=== PATIENT | female | born 1970 | race African-American/Black ===

== ENCOUNTER 2022-12-19 22:42 | Outpatient (CLI) | payer BC, SELFPAY | END 2022-12-19 22:43 | disposition home or self-care (01) | LOC: AMB 12-20 11:53 | PROVIDERS: Visit Provider Emergency Medicine | DX: E11.65 Type 2 diabetes mellitus with hyperglycemia (principal); R41.82 Altered mental status, unspecified | CPT/HCPCS: A0425; A0427 ==

== ENCOUNTER 2022-12-19 23:39 | Emergency (ER) | payer BC, SELFPAY ==
[2022-12-19 23:46] VITALS: BP 142/85; PULSE 116; RESP 16; TEMP 36.6; O2SAT 96; BMI 40.7
--- NOTE | 2022-12-20 00:33 | CRLHL7_ITS ---
For Patients: As a result of the Cures Act, medical imaging exams and procedure reports are released immediately into your electronic medical record. You may view this report before your referring provider. If you have questions, please contact your health care provider. INDICATION: Altered mental status TECHNIQUE: Chest 1 view. Permanently recorded images are archived. COMPARISON: None. FINDINGS: Cardiovascular and mediastinum: Cardiomegaly. Normal thoracic aorta. Lungs and pleural spaces: Low lung volumes with bronchovascular crowding. No definite pleural effusion, consolidation, pneumothorax. Bones and soft tissues: Unremarkable for age. IMPRESSION: Low lung volumes with bronchovascular crowding. No focal consolidation. Cardiomegaly. Dictated by Tirso Cartagena MD @ 12/20/2022 1:25:03 AM (Electronically Signed)
[2022-12-20 01:09] VITALS: BP 144/87; PULSE 114; RESP 24; TEMP 36.6; O2SAT 94
[2022-12-20] MEDS: 0.9 % SODIUM CHLORIDE 500 ML 500 ML IV (01:09)
[2022-12-20 01:17] LABS: HCO3 VBG 26 mmol/L (21-28); Lactate* 1.7 mmol/L (0.5-1.9); PCO2 VBG 43 mmHG (40-50); Troponin, Point-of-Care* 0.02 ng/ml (0.01-0.04); pH VBG 7.388 (7.32-7.43)
--- NOTE | 2022-12-20 01:29 | ED.GENADULT ---
HPI - General Adult General Chief complaint: Diabetic Related Problem Stated complaint: Diabetic Time Seen by Provider: 12/20/22 00:07 Source: patient and family Mode of arrival: EMS History of Present Illness HPI narrative: 52-year-old female presents the emergency department by EMS. They were called because her son had concerns regarding her blood sugar. He initially was concerned that she has not had her blood sugar meter for the past couple of days. He reports that she returned from [place] 6 hours ago, does typically live with him but has been gone for the last week. It clear that she has not been taking her insulin properly while she has been away visiting family. She denies drug use or intoxication. Reports that even though she did not check her sugar tonight, she assumed was high, therefore took her typical amount of insulin. She took 36 units of her long-acting insulin which is her typical dose and to 24 units of her short-acting insulin which is also her typical dose. When EMS checked her blood sugar she was around 400 and is 345 here for us. Son reports that she was acting funny, drowsy and that this is not characteristic for her. She is able to answer questions, has been ambulating normally. She denies chest pain, fever, infection. She reports that she does feel sleepy. It is clear by the way that she is not a off positionally that she likely has some element of positional sleep apnea through our conversation today. Son states that he does not have any report that she was acting abnormally while away but does not have a good way to check in on that. Denies history of similar patterns of behavior. She denies any pain, neurological changes. She had actually refused to come to the hospital when EMS had arrived but they convinced her that she should. Past medical history notable for hyperlipidemia, diabetes. She is able to relay her insulin dosing and medical problems to me with what sounds to be pretty good reliability. Denies allergies. Denies drug use or alcohol intake tonight. ROS notable for the altered mental status and possible endocrine complications as described above. Otherwise, family denies times 12 systems. Related Data Previous Rx's Medication Instructions Recorded Test Strips #100 ea 12/20/22 blood-glucose meter #1 ea 12/20/22 Allergies Allergy/AdvReac Type Severity Reaction Status Date / Time No Known Drug Allergies Allergy Verified 12/19/22 23:49 [facility] Medical History Diabetes mellitus, type 2 ?E11.9 - Type 2 diabetes mellitus without complications (ICD-10) Social History Smoking Status: Never smoker How often do you have a drink containing alcohol: never AUDIT-C Alcohol total score: 0 Non-prescribed substance use: denies use Exam Const: Vital Signs, click to edit/add: Vital Signs - 24 hr 12/19/22 23:46 12/20/22 01:09 Temperature 97.8 F 97.8 F Pulse Rate [Left P ulse Oximeter] 116 H 114 H Respiratory Rate 16 24 Blood Pressure [Le ft Forearm] 142/85 H 144/87 H Pulse Oximetry 96 94 Oxygen Delivery Me thod Room Air Room Air Documenting provider has reviewed patient's vital signs: yes Other: Drowsy but arousable. When you can maintain her attention, she answers questions with good reliability. HENMT: Common normals: normocephalic Head and scalp: normocephalic Face and sinus: normal facial exam Mouth: oral and palatal mucosa normal Throat: posterior oropharynx normal Eye: Common normals: conjunctivae normal General eye: normal appearance of both eyes Conjunctiva: conjunctiva(e) normal Neck & C-Spine: Common normals: full ROM and no lymphadenopathy Chest: Common normals: inspection of chest normal Resp: Common normals: normal respiratory effort and no use of accessory muscles Other: Decreased at the bases but poor effort. No obvious crackles Cardio: Common normals: regular rate, regular rhythm, S1 normal heart sound, S2 normal heart sound and no murmurs Rate: regular rate Rhythm: regular rhythm Heart sounds: S1 normal and S2 normal GI: Common normals: Normal to inspection, nondistended, normoactive bowel sounds present, soft to palpation, non-tender, no hepatosplenomegaly and no masses Palpation: soft and no hepatosplenomegaly Extremity: Common normals: normal capillary refill and no pedal edema Neuro: Other: drowsy but arousable. Obviously has some element of positional sleep apnea. Pupils are equal and round, reactive, normal gaze and visual tracking. Symmetric arm and leg movements, no slurring of speech. Psych: Insight: limited Judgement: limited Skin: Common normals: no rashes or lesions noted General skin exam: no rashes or lesions noted Course Course Hospital Course: Differential diagnosis including diabetic ketoacidosis, hypoglycemia, infection, electrolyte abnormality, dehydration, Pickwickian syndrome, cardiac process, neurological event like stroke or toxin ingestion. Initial blood sugars are reassuring. I recommend we focus more on and etiology of the altered mental status. Recommend chest x-ray, basic labs, 1 L of IV fluid. Head CT. Reevaluation(s) Time of Reevaluation #1: 03:12 Reevaluation #1: Blood sugar recheck 174, eating crackers and peanut butter. She is still drowsy but will arouse to voice and answer questions. Lengthy discussion regarding need for sleep study, proper blood sugar management and need for glucose meter. I will send a prescription for a blood glucose meter and test strips just in case there are any barriers to getting a new continuous glucose monitor kit. Discussed how her next dose of her long-acting insulin should be taken Sunday evening and that she should only take more for short-acting insulin with her next meal. At this point, it is been over 4 hours since she took her Humalog, it is well past peak and actually out of her system now. She will not continue to have a significant risk for hypoglycemia. Her short-acting insulin should continue to lower her blood sugar about another 50 points over night, coming down to the ideal range. She can be discharged home with her family for planned outpatient follow-up, follow-up sleep study and continued surveillance. Alarm symptoms reviewed that would warrant repeat ED presentation. Patient and significant other verbalized understanding. Vital Signs Vital signs: Initial Vital Signs Temperature 97.8 F 12/19/22 23:46 Temperature Source Temporal Artery Scan 12/19/22 23:46 Pulse Rate 116 H 12/19/22 23:46 Respiratory Rate 16 12/19/22 23:46 Blood Pressure 142/85 H 12/19/22 23:46 Blood Pressure Mean 104 12/19/22 23:46 Blood Pressure Position Sitting 12/19/22 23:46 Pulse Oximetry 96 12/19/22 23:46 Oxygen Delivery Method Room Air 12/19/22 23:46 Vital Signs Temperature 97.8 F 12/19/22 23:46 Pulse Rate 116 H 12/19/22 23:46 Respiratory Rate 16 12/19/22 23:46 Blood Pressure 142/85 H 12/19/22 23:46 Pulse Oximetry 96 12/19/22 23:46 Oxygen Delivery Method Room Air 12/19/22 23:46 Temperature 97.8 F 12/20/22 01:09 Pulse Rate 114 H 12/20/22 01:09 Respiratory Rate 24 12/20/22 01:09 Blood Pressure 144/87 H 12/20/22 01:09 Pulse Oximetry 94 12/20/22 01:09 Oxygen Delivery Method Room Air 12/20/22 01:09 Medical Decision Making Lab Data Lab results reviewed: Yes I reviewed the patient's lab results Lab results narrative: mild leukocytosis of undetermined etiology. No acidosis, normal CRP. Urinalysis suggestive of chronic long-term issues but no acute infection. No significant dehydration. Labs: Lab Results 12/20/22 12/20/22 12/20/22 Range/Units 01:00 01:06 01:10 WBC 11.18 H (4.50-11.00) K/uL RBC 4.76 (4.00-5.20) m/uL Hgb 13.4 (12.0-16.0) gm/dL Hct 42.0 (33.0-51.0) % MCV 88 (80-100) fL MCH 28 (26-34) pg MCHC 32 (32-36) gm/dL RDW Coeff of Ximena 15.1 (11.5-15.5) % Plt Count 375 (140-440) K/uL Neut % (Auto) 51.2 (42.0-72.0) % Lymph % (Auto) 37.3 (20-44) % [place] % (Auto) 8.3 (0.0-11.0) % Eos % (Auto) 2.1 (0.0-7.0) % Baso % (Auto) 0.7 (0.0-3.0) % Neut # (Auto) 5.70 (1.7-7.0) K/uL Lymph # (Auto) 4.20 H (0.90-2.90) K/uL [place] # (Auto) 0.90 (0.00-0.90) K/UL Eos # (Auto) 0.20 (0.00-0.50) K/uL Baso # (Auto) 0.10 (0.00-0.30) K/uL Abs Immat Gran (auto) 0.00 (0.00-0.30) K/uL Imm/Tot Granulo (auto) 0.4 % VBG pH 7.388 (7.32-7.43) VBG pCO2 43 (40-50) mmHG VBG pO2 57.0 H (25-47) mmHG VBG HCO3 26 (21-28) mmol/L Sodium 139 (135-149) mmol/L Potassium 3.5 L (3.6-5.1) mmol/L Chloride 106 (96-114) mmol/L Carbon Dioxide 25 (20-32) mmol/L Anion Gap 8 (7-15) mEq/L BUN 31 H (7-30) mg/dL Creatinine 1.1 (0.5-1.5) mg/dL Estimated Creat Clear 50.61 Estimated GFR 61 ml/min Glucose 224 H (60-115) mg/dL Lactate 1.7 (0.5-1.9) mmol/L Calcium 8.9 (8.4-10.6) mg/dL Troponin I 0.02 (0.01-0.04) ng/mL C-Reactive Protein 0.6 (0.5-1.0) mg/dL Urine Color (Yellow) Urine Appearance (Clear) Urine pH (5.0-8.5) Ur Specific [place] (1.000-1.030) Urine Protein (Negative) Urine Glucose (UA) (Negative) Urine Ketones (Negative) Urine Blood (Negative) Urine Nitrite (Negative) Urine Bilirubin (Negative) Urine Urobilinogen (0.2-1.0) Ur Leukocyte Esterase (Negative) Urine RBC (0-2) Urine WBC (0-5) Ur Squamous Epith Cells (None-Few) Urine Bacteria (None) Ethyl Alcohol < 0.01 L (0.01-0.03) % SARS-CoV-2 (PCR) Negative SARS-CoV-2 (Negative) Influenza Type A (PCR) Negative PCR FLU A (Negative) Influenza Type B (PCR) Negative PCR FLU B (Negative) RSV (PCR) Negative PCR RSV (Negative) Lab Acknowledgement POC Troponin I 0.02 (0.01-0.04) ng/ml 12/20/22 12/20/22 Range/Units 01:15 01:25 WBC (4.50-11.00) K/uL RBC (4.00-5.20) m/uL Hgb (12.0-16.0) gm/dL Hct (33.0-51.0) % MCV (80-100) fL MCH (26-34) pg MCHC (32-36) gm/dL RDW Coeff of Ximena (11.5-15.5) % Plt Count (140-440) K/uL Neut % (Auto) (42.0-72.0) % Lymph % (Auto) (20-44) % [place] % (Auto) (0.0-11.0) % Eos % (Auto) (0.0-7.0) % Baso % (Auto) (0.0-3.0) % Neut # (Auto) (1.7-7.0) K/uL Lymph # (Auto) (0.90-2.90) K/uL [place] # (Auto) (0.00-0.90) K/UL Eos # (Auto) (0.00-0.50) K/uL Baso # (Auto) (0.00-0.30) K/uL Abs Immat Gran (auto) (0.00-0.30) K/uL Imm/Tot Granulo (auto) % VBG pH (7.32-7.43) VBG pCO2 (40-50) mmHG VBG pO2 (25-47) mmHG VBG HCO3 (21-28) mmol/L Sodium (135-149) mmol/L Potassium (3.6-5.1) mmol/L Chloride (96-114) mmol/L Carbon Dioxide (20-32) mmol/L Anion Gap (7-15) mEq/L BUN (7-30) mg/dL Creatinine (0.5-1.5) mg/dL Estimated Creat Clear Estimated GFR ml/min Glucose (60-115) mg/dL Lactate (0.5-1.9) mmol/L Calcium (8.4-10.6) mg/dL Troponin I (0.01-0.04) ng/mL C-Reactive Protein (0.5-1.0) mg/dL Urine Color Yellow (Yellow) Urine Appearance Clear (Clear) Urine pH 6.0 (5.0-8.5) Ur Specific [place] 1.025 (1.000-1.030) Urine Protein 3+ A (Negative) Urine Glucose (UA) 2+ A (Negative) Urine Ketones 1+ A (Negative) Urine Blood 1+ A (Negative) Urine Nitrite Negative (Negative) Urine Bilirubin Negative (Negative) Urine Urobilinogen 0.2 (0.2-1.0) Ur Leukocyte Esterase Negative (Negative) Urine RBC 0-2 (0-2) Urine WBC 0-2 (0-5) Ur Squamous Epith Cells Few (None-Few) Urine Bacteria None (None) Ethyl Alcohol (0.01-0.03) % SARS-CoV-2 (PCR) (Negative) Influenza Type A (PCR) (Negative) Influenza Type B (PCR) (Negative) RSV (PCR) (Negative) Lab Acknowledgement Test Added POC Troponin I (0.01-0.04) ng/ml Imaging Data Chest x-ray: Attestation: I have reviewed the pertinent imaging results. My impression: Poor inspiratory effort, cardiomegaly but no obvious infiltrate or pleural effusion Radiologist's impression: IMPRESSION: Low lung volumes with bronchovascular crowding. No focal consolidation. CT scan - head: Attestation: I have reviewed the pertinent imaging results. My impression: Normal head CT Radiologist's impression: IMPRESSION: 1. No CT correlate for the patient`s symptoms seen. Discharge Plan Discharge Clinical Impression: Elevated blood sugar, Altered mental status, Pickwickian syndrome Patient Disposition: Home w/ Parent or Adult Condition: Stable Instructions: Sleep Apnea (DC) Additional Instructions: As we discussed, blood work is reassuring. CT scan of the head also does not show any signs of tumors, stroke or other abnormality. This is good news. Her oxygen levels do drop in certain sleep positions which is suggestive of sleep apnea. Please make a follow-up appointment with her primary care doctor next week to further discuss testing with a sleep study and make sure that the diabetes is getting back under control. It is important that you have a way to monitor your blood sugars. I will send a blood glucose meter to the pharmacy. They will not likely cover an additional continuous glucose implanted meter except by your regular primary care doctor but sometimes there are no remaining refills or it requires a new insurance approval. It is important that you have a way to check her blood sugar in the meantime even if it is through fingerstick. With your elevated blood sugar, it you actually did exactly the right thing in terms of taking your insulin. I would just prefer in the future that you have a way to check your blood sugar instead of making assumption as to what is needed. If symptoms continue to worsen, you are welcome back in the emergency room to look more closely at a problem with the brain. Remember not to take your long-acting insulin again until Sunday evening. Your next dose of short-acting insulin will be with your next meal. Your blood sugar is 175 at the time of going home and should be around 100 in the morning which is ideal. Make sure you eat breakfast in the morning. Activity Level: No Restrictions Prescriptions: New (DME) blood-glucose meter Kit See Rx Instructions .Route Qty: 1 0RF Rx Instructions: 4x daily testing (DME) Test Strips Misc See Rx Instructions .Route Qty: 100 1RF Rx Instructions: As directed Follow Up/Referrals: Provider,Not a Local [Primary Care Provider] - Stand Alone Forms: [employer] Info Instructions
[2022-12-20 01:32] LABS: Basophils Percent Auto 0.7 % (0.0-3.0); Eosinophils Percent Auto 2.1 % (0.0-7.0); Hemoglobin* 13.4 gm/dL (12.0-16.0); Immature Granulocytes Pct Auto 0.4 %; Lymphocytes Percent Auto 37.3 % (20-44); Mean Corpuscular HGB Conc 32 gm/dL (32-36); Mean Corpuscular Hemoglobin 28 pg (26-34); Mean Corpuscular Volume 88 fL (80-100); Monocytes Percent Auto 8.3 % (0.0-11.0); Neutrophils Percent Auto 51.2 % (42.0-72.0); Platelet Count* 375 K/uL (140-440); RDW Coefficient of Variation % 15.1 % (11.5-15.5); Red Blood Count 4.76 m/uL (4.00-5.20); White Blood Count* 11.18 K/uL (4.50-11.00)
[2022-12-20 01:33] LABS: Appearance Urine Clear (Clear); Bilirubin Urine Negative (Negative); Blood Urine 1+ (Negative); Color Urine Yellow (Yellow); Glucose Urine 2+ (Negative); Ketones Urine 1+ (Negative); Leukocyte Esterase Urine Negative (Negative); Nitrite Urine Negative (Negative); Protein Urine 3+ (Negative); Specific Gravity Urine 1.025 (1.000-1.030); Urobilinogen Urine 0.2 (0.2-1.0)
[2022-12-20 01:33] LABS: Chloride* 106 mmol/L (96-114); Sodium* 139 mmol/L (135-149)
[2022-12-20 01:34] LABS: Potassium* 3.5 mmol/L (3.6-5.1)
[2022-12-20 01:36] LABS: Creatinine* 1.1 mg/dL (0.5-1.5); Est. Creatinine Clearance* 50.61; Estimated Glomerular Filt Rate 61 ml/min
[2022-12-20 01:36] LABS: Slide Review Reflex No
[2022-12-20 01:37] LABS: Anion Gap 8 mEq/L (7-15); Blood Urea Nitrogen* 31 mg/dL (7-30); Calcium* 8.9 mg/dL (8.4-10.6); Carbon Dioxide* 25 mmol/L (20-32); Glucose* 224 mg/dL (60-115)
--- NOTE | 2022-12-20 01:37 | CRLHL7_ITS ---
For Patients: As a result of the Century Cures Act, medical imaging exams and procedure reports are released immediately into your electronic medical record. You may view this report before your referring provider. If you have questions, please contact your health care provider. INDICATION: Transient alteration of awareness TECHNIQUE: CT Head without i.v. contrast. Coronal and sagittal reformats were obtained. COMPARISON: None FINDINGS: CSF space: The ventricles are normal for age. Brain: No evidence of mass, acute infarction or hemorrhage is seen. No mass-effect or midline shift is seen. The brain parenchyma is otherwise normal in appearance with preservation of the graf-white matter junction. Calvarium: The visualized paranasal sinuses are well aerated. The mastoid air cells are clear. The visualized orbits are grossly unremarkable. The calvarium is unremarkable in appearance with no fractures identified. IMPRESSION: 1. No evidence of acute infarction, intracranial hemorrhage, or mass-effect seen. Please note that all CT scans at this facility use dose modulation, iterative reconstruction, and/or weight-based dosing when appropriate to reduce radiation dose to as low as reasonably achievable. Dictated by: Harsh Villaseñor MD @ 12/20/2022 02:22:18 (Electronically Signed)
[2022-12-20 01:39] LABS: C Reactive Protein* 0.6 mg/dL (0.5-1.0)
[2022-12-20 01:40] LABS: RBC Urine 0-2 (0-2); Squamous Epithelial Cell Urine Few (None-Few); WBC Urine 0-2 (0-5)
[2022-12-20 01:42] LABS: Ethanol* < 0.01 % (0.01-0.03)
[2022-12-20 01:47] LABS: PCR FLU A Negative PCR FLU A (Negative); PCR FLU B Negative PCR FLU B (Negative); PCR RSV Negative PCR RSV (Negative); SARS PCR* Negative SARS-CoV-2 (Negative)
[2022-12-20 01:49] LABS: Troponin I* 0.02 ng/mL (0.01-0.04)
--- NOTE | 2022-12-20 03:00 | ED.NURSE ---
pt ate saltine crackers x4 with peanut butter on them, and water
[2022-12-20 03:30] VITALS: BP 136/79; PULSE 98; RESP 24; TEMP 36.9; O2SAT 96
== END 2022-12-20 04:56 | disposition home or self-care (01) ==
PROVIDERS: Emergency Provider Family Medicine
DX: E11.65 Type 2 diabetes mellitus with hyperglycemia (principal); R41.82 Altered mental status, unspecified; E66.2 Morbid (severe) obesity with alveolar hypoventilation; Z79.4 Long term (current) use of insulin
CPT/HCPCS: 36415; 70450; 71045; 80048; 81003; 81015; 82077; 82803; 82962; 83605; 84484; 85025; 86140; 87631; 99284; 99285; J7120

== ENCOUNTER 2023-09-20 01:20 | Outpatient (CLI) | payer BC, SELFPAY | END 2023-09-20 01:21 | disposition home or self-care (01) | LOC: AMB 09-25 23:10 | PROVIDERS: PCP Family Medicine; Visit Provider Internal Medicine | DX: E16.2 Hypoglycemia, unspecified (principal) | CPT/HCPCS: A0998 ==

== ENCOUNTER 2023-09-20 18:18 | Outpatient (CLI) | payer BC, SELFPAY | END 2023-09-20 18:19 | disposition home or self-care (01) | LOC: AMB 09-23 15:00 | PROVIDERS: PCP Family Medicine; Visit Provider Family Medicine | DX: R53.1 Weakness (principal) | CPT/HCPCS: A0425; A0429 ==

== ENCOUNTER 2023-09-20 18:50 | Emergency (ER) | payer BC, SELFPAY ==
[2023-09-20 18:55] VITALS: BP 136/108; PULSE 110; RESP 24; TEMP 36.2; O2SAT 95; BMI 47.6
--- NOTE | 2023-09-20 19:12 | CRLHL7_ITS ---
For Patients: As a result of the Cures Act, medical imaging exams and procedure reports are released immediately into your electronic medical record. You may view this report before your referring provider. If you have questions, please contact your health care provider. Indication: Injury. Technique: Left knee 3 views. Comparison: None. Findings: Bones: Alignment is normal. No fractures or bone lesions. Small superior and inferior patellar enthesophytes. Joint spaces: Mild tricompartment degenerative changes. No knee joint effusion. Soft tissues: Unremarkable. Impression: No evidence of an acute bony abnormality. Dictated by Tirso Cartagena MD @ 09/20/2023 8:13:41 PM (Electronically Signed)
--- NOTE | 2023-09-20 19:13 | ED_ITS ---
HPI - General Adult General Chief complaint: Weakness Stated complaint: Fall Time Seen by Provider: 09/20/23 18:57 History of Present Illness HPI narrative: This 53-year-old female comes in reporting weakness in her left knee. She states that she fell earlier today and 2 days ago she fell twice under the same circumstances when getting up from a sitting position. She states that she does not have pain and did not injure herself but has weakness in her left knee insufficient to change from sitting to standing at certain times. She has been able to get up and ambulate since her fall today. She does not report generalized weakness. Her she does not report any injury event. Related Data Home Medications ?Medication ?Instructions ?Recorded ?Confirmed atorvastatin 40 mg tablet 40 mg PO DAILY 09/20/23 09/20/23 brimonidine 0.2 % eye drops drp ophthalmic (eye) 09/20/23 insulin glargine 100 unit/mL (3 unit subcut 09/20/23 mL) subcutaneous pen (Lantus Solostar U-100 Insulin) insulin lispro 100 unit/mL subcut 09/20/23 subcutaneous pen (Humalog KwikPen (U-100) Insulin) Previous Rx's ?Medication ?Instructions ?Recorded Test Strips #100 ea 12/20/22 blood-glucose meter #1 ea 12/20/22 Allergies Allergy/AdvReac Type Severity Reaction Status Date / Time No Known Drug Allergies Allergy Verified 12/19/22 23:49 Review of Systems Status of ROS: Reports: 10 or more systems reviewed and unremarkable except as noted in History and below Narrative: Constitutional: No fevers, no weight gain or loss. Eyes: No discharge. No vision changes. HENT: No congestion, no sore throat, no ear pain. Cardiovascular: No chest pain, no palpitations. Respiratory: No shortness of breath, no wheezes, no cough. Gastrointestinal: No abdominal pain, no vomiting, no diarrhea. Genitourinary: No dysuria, no hematuria. Musculoskeletal: Normal range of motion. Diffuse discomfort in her right knee when moving to a standing position. Skin: No rashes, no pruritis. Neurological: No dizziness, weakness, sensory change, speech change. Endo/Heme/Allergies: No bruising or bleeding. No polydipsia. Pysch: no suicidality, no anxiety, no insomnia. All other systems reviewed and are negative. [facility] Medical History Diabetes mellitus, type 2 ?E11.9 - Type 2 diabetes mellitus without complications (ICD-10) Social History Smoking Status: Never smoker How often do you have a drink containing alcohol: never AUDIT-C Alcohol total score: 0 Non-prescribed substance use: denies use Exam Narrative: Exam Narrative: Constitutional: Well-developed, well-nourished, no acute distress. HEENT: Normocephalic, atraumatic. Neck: Normal range of motion. Nontender. Supple. Heart: Intact distal pulses. Lungs: No chest discomfort. No wheezes, rhonchi, or rales. Abdomen: Nontender. Back: Normal range of motion. Extremities: No sign of external injury. She is able to raise her left leg from the bed. Skin: Intact. No rash. Warm. No erythema or pallor. Neurologic: No altered sensation. No weakness. Alert and oriented. Psychiatric: No suicidality. No anxiety or depression. No insomnia. Nursing notes and vitals signs are reviewed. Const: Vital Signs, click to edit/add: Vital Signs - 24 hr 09/20/23 18:55 Temperature 97.1 F L Pulse Rate [Pulse Oximeter] 110 H Respiratory Rate 24 Blood Pressure [Ri ght Upper Arm] 136/108 H Pulse Oximetry 95 Oxygen Delivery Me thod Room Air Course Vital Signs Vital signs: Initial Vital Signs Temperature 97.1 F L 09/20/23 18:55 Temperature Source Temporal Artery Scan 09/20/23 18:55 Pulse Rate 110 H 09/20/23 18:55 Pulse Rhythm Regular 09/20/23 18:55 Respiratory Rate 24 09/20/23 18:55 Blood Pressure 136/108 H 09/20/23 18:55 Blood Pressure Mean 117 H 09/20/23 18:55 Blood Pressure Position Supine 09/20/23 18:55 Pulse Oximetry 95 09/20/23 18:55 Oxygen Delivery Method Room Air 09/20/23 18:55 Vital Signs Temperature 97.1 F L 09/20/23 18:55 Pulse Rate 110 H 09/20/23 18:55 Respiratory Rate 24 09/20/23 18:55 Blood Pressure 136/108 H 09/20/23 18:55 Pulse Oximetry 95 09/20/23 18:55 Oxygen Delivery Method Room Air 09/20/23 18:55 Temperature 97.1 F L 09/20/23 18:55 Pulse Rate 110 H 09/20/23 18:55 Respiratory Rate 24 09/20/23 18:55 Blood Pressure 136/108 H 09/20/23 18:55 Pulse Oximetry 95 09/20/23 18:55 Oxygen Delivery Method Room Air 09/20/23 18:55 Medical Decision Making MDM Narrative Medical decision making narrative: This patient comes in reporting weakness in her left knee. She has some mild pain when using it to get up from a sitting position. She has fallen a few times when trying to get up. Her significant other with her states that she needs to be more active and is deconditioned. She is morbidly obese. An x-ray of her left knee is obtained and by my review shows no acute findings. This patient does not need any knee immobilization, rather she needs to be more mobile and use these muscles. She did receive crutches to assist with ambulating. She will use [id number] medicines also as needed and directed. Discharge Plan Discharge Clinical Impression: Acute knee pain Patient Disposition: Home w/ Parent or Adult Condition: Stable Additional Instructions: Increase activity as tolerated. Use crutches for assistance in ambulating as needed. Use [id number] medicines as needed and directed also. Prescriptions: No Action (DME) blood-glucose meter Kit See Rx Instructions .Route Qty: 1 0RF Rx Instructions: 4x daily testing (DME) Test Strips Misc See Rx Instructions .Route Qty: 100 1RF Rx Instructions: As directed atorvastatin 40 mg tablet 40 mg PO DAILY brimonidine 0.2 % drops ophthalmic (eye) insulin lispro [Humalog KwikPen Insulin] 100 unit/mL insulin pen subcut insulin glargine [Lantus Solostar U-100 Insulin] 100 unit/mL (3 mL) insulin pen subcut Follow Up/Referrals: Provider,Not a Local [Referring] - Stand Alone Forms: [facility] Info Instructions
== END 2023-09-20 20:39 | disposition home or self-care (01) ==
PROVIDERS: Emergency Provider Emergency Medicine Emergency Medical Services; PCP Family Medicine
DX: M25.562 Pain in left knee (principal)
CPT/HCPCS: 73562; 99283; 99284

== ENCOUNTER 2023-10-15 08:03 | Outpatient (CLI) | payer BC, SELFPAY | END 2023-10-15 08:04 | disposition home or self-care (01) | LOC: AMB 10-17 01:40 | PROVIDERS: PCP Family Medicine; Visit Provider Emergency Medicine | DX: R55 Syncope and collapse (principal); S09.90XA Unspecified injury of head, initial encounter; W18.30XA Fall on same level, unspecified, initial encounter; Y92.009 Unspecified place in unspecified non-institutional (private) residence as the place of occurrence of the external cause | CPT/HCPCS: A0998 ==

== ENCOUNTER 2023-10-22 14:13 | Outpatient (CLI) | payer BC, SELFPAY | END 2023-10-22 14:14 | disposition home or self-care (01) | LOC: AMB 10-27 12:48 | PROVIDERS: PCP Family Medicine; Visit Provider Family Medicine | DX: R41.82 Altered mental status, unspecified (principal) | CPT/HCPCS: A0425; A0429 ==

== ENCOUNTER 2023-10-22 15:00 | Inpatient (IN) | payer BC, SELFPAY ==
[2023-10-22] VITALS (11 sets, daily range): BP systolic 159–183; BP diastolic 86–106; PULSE 98–106; RESP 26–32; TEMP 36.4–36.6; O2SAT 92–100; BMI 41.2; BMI 60.0
--- NOTE | 2023-10-22 15:11 | ED.AMS ---
HPI - Altered Mental Status General Time Seen by Provider: 15:11 Date Seen: 10/22/23 Chief Complaint: Altered Mental Status Stated Complaint: Confusion, falls Time Seen by Provider: 10/22/23 15:11 Source: patient, family and RN notes reviewed Mode of arrival: ambulatory Limitations: altered mental status History of Present Illness HPI narrative: Cindy is a very pleasant 53-year-old female with a history of morbid obesity, hypertension who comes to the emergency room for evaluation regarding increasing confusion. Her son accompanies her as she arrives via EMS. It appears that over the past month she has been experiencing increased confusion. Sometimes making odd statements in the morning. She has hit her head a few times in the past month and most recently as a week ago. She denies any headache or neck pain. She has not had any fevers or chills. She notes no chest pain or shortness of breath. She does agree that she has been wheezing a bit more. Her son states that she will fall asleep and on the toilet and that is where most of the falls have occurred when she is sitting and falls asleep. She denies a history of apnea and she does not wear a CPAP at night. Related Data Home Medications ?Medication ?Instructions ?Recorded ?Confirmed atorvastatin 40 mg tablet 40 mg PO DAILY 09/20/23 10/22/23 brimonidine 0.2 % eye drops 1 drp ophthalmic (eye) DAILY 09/20/23 10/22/23 insulin glargine 100 unit/mL (3 35 unit subcut HS 09/20/23 10/22/23 mL) subcutaneous pen (Lantus Solostar U-100 Insulin) insulin lispro 100 unit/mL 1 sliding scale dose subcut 09/20/23 subcutaneous pen (Humalog KwikPen (U-100) Insulin) metformin 1,000 mg tablet 1,000 mg PO BID 10/22/23 10/22/23 Previous Rx's ?Medication ?Instructions ?Recorded Test Strips #100 ea 12/20/22 blood-glucose meter #1 ea 12/20/22 Allergies Allergy/AdvReac Type Severity Reaction Status Date / Time No Known Drug Allergies Allergy Verified 12/19/22 23:49 Review of Systems Status of ROS: Reports: 10 or more systems reviewed and unremarkable except as noted in History and below [facility] Medical History Diabetes mellitus, type 2 ?E11.9 - Type 2 diabetes mellitus without complications (ICD-10) Social History Smoking Status: Never smoker How often do you have a drink containing alcohol: never How often do you have six or more drinks on one occasion: Never AUDIT-C Alcohol total score: 0 Non-prescribed substance use: denies use service: No Exam Narrative: Exam Narrative: Patient is awake. The speech is somewhat slurred and she seems excessively sleepy. She is redirectable. Head is atraumatic normocephalic. Neck is supple. No midline cervical tenderness. EOM is full. Oral cavity with moist mucous membranes. I do note audible wheezing. Heart with a tachycardic rate normal rhythm. Lungs with decreased breath sounds in the bases wheezing in the upper 8 apices abdomen is obese soft nontender. Lower extremities with 2+ edema taut skin. I do not see any drainage or unusual erythema. She is moving her lower extremities. Const: Vital Signs, click to edit/add: Vital Signs - 24 hr 10/22/23 15:01 10/22/23 17:15 10/22/23 17:17 Temperature 97.8 F Pulse Rate 99 98 Pulse Rate [Pulse Oximeter] 106 H Respiratory Rate 26 H Blood Pressure 176/103 H Blood Pressure [Ri ght Forearm] 165/88 H Pulse Oximetry 100 97 92 Oxygen Delivery Me thod Room Air 10/22/23 17:22 10/22/23 17:23 10/22/23 17:30 Temperature Pulse Rate 99 99 Pulse Rate [Pulse Oximeter] Respiratory Rate Blood Pressure 183/106 H Blood Pressure [Ri ght Forearm] Pulse Oximetry 96 98 Oxygen Delivery Me thod 10/22/23 17:42 10/22/23 18:02 Temperature Pulse Rate Pulse Rate [Pulse Oximeter] Respiratory Rate Blood Pressure 160/90 H 174/91 H Blood Pressure [Ri ght Forearm] Pulse Oximetry Oxygen Delivery Me thod Documenting provider has reviewed patient's vital signs: yes Course Course ED Course: Differential diagnosis includes but not limited to sepsis, closed head injury, congestive heart failure, acute coronary event, urinary tract infection, Pickwickian syndrome, asthma, pneumonia. Will place IV and draw labs to include CBC, comprehensive panel, CRP, lactate. Will check EKG, director writing, chest x-ray, head CT, cervical spine CT. Will also check ETOH and urinalysis and VBG Reevaluation(s) Reevaluation #1: Point of care troponin comes back elevated at 0.20. This is point of care troponin and given lack of chest pain will will have lab do a backup. Addendum: Lab backup is within normal limits. At this time do not have reason for patient's altered mentation. Suggestion of some CO2 retention perhaps Pickwickian response to morbid obesity. CK is elevated at 200. Will initiate some fluids at this time. White count elevated at 12.95. Urinalysis pending. Alcohol level is negative. Nursing staff notes trying to assist patient from bed and patient is very weak. She will likely need admission with OT consult. Vital Signs Vital signs: Initial Vital Signs Temperature 97.8 F 10/22/23 15:01 Temperature Source Temporal Artery Scan 10/22/23 15:01 Pulse Rate 106 H 10/22/23 15:01 Respiratory Rate 26 H 10/22/23 15:01 Blood Pressure 165/88 H 10/22/23 15:01 Blood Pressure Mean 113 H 10/22/23 15:01 Blood Pressure Position Supine 10/22/23 15:01 Pulse Oximetry 100 10/22/23 15:01 Oxygen Delivery Method Room Air 10/22/23 15:01 Vital Signs Temperature 97.8 F 10/22/23 15:01 Pulse Rate 106 H 10/22/23 15:01 Respiratory Rate 26 H 10/22/23 15:01 Blood Pressure 165/88 H 10/22/23 15:01 Pulse Oximetry 100 10/22/23 15:01 Oxygen Delivery Method Room Air 10/22/23 15:01 Temperature 97.8 F 10/22/23 15:01 Pulse Rate 99 10/22/23 17:30 Respiratory Rate 26 H 10/22/23 15:01 Blood Pressure 174/91 H 10/22/23 18:02 Pulse Oximetry 98 10/22/23 17:30 Oxygen Delivery Method Room Air 10/22/23 15:01 MDM - Altered Mental Status MDM Narrative Medical decision making narrative: 1. Altered mentation-at this time CTs are reassuring. Blood work without evidence of concerns for infection. There is some evidence of CO2 retention. With oximetry showing patient to be 98% on room air. 2. Frequent falls-patient appears to be actually falling and hitting her head from a sitting position. For instance her son tells me that she falls asleep while on the toilet. No fever at this time. Currently awaiting urinalysis. 3. Weakness-patient appears to be globally weak and deconditioned. CK elevated at 200 with normal creatinine. Fluids have been initiated. Significantly elevated BMI likely contributing. Will admit for OT consult possible home health visits. 4. Type 2 diabetes with blood sugar of 66. 5. Disposition-admit to the floor under the care of Dr. Davis. Currently pending urinalysis, chest x-ray final report. Medical Records Attestation: I reviewed the patient's medical records. Lab Data Attestation: I reviewed the patient's lab results. Labs: Lab Results 10/22/23 10/22/23 10/22/23 Range/Units 15:27 16:30 16:30 WBC 12.95 H (4.50-11.00) K/uL RBC 4.81 (4.00-5.20) m/uL Hgb 13.7 (12.0-16.0) gm/dL Hct 43.4 (33.0-51.0) % MCV 90 (80-100) fL MCH 29 (26-34) pg MCHC 32 (32-36) gm/dL RDW Coeff of Ximena 13.8 (11.5-15.5) % Plt Count 378 (140-440) K/uL Neut % (Auto) 43.9 (42.0-72.0) % Lymph % (Auto) 42.2 (20-44) % Irwin % (Auto) 10.7 (0.0-11.0) % Eos % (Auto) 2.5 (0.0-7.0) % Baso % (Auto) 0.6 (0.0-3.0) % Neut # (Auto) 5.70 (1.7-7.0) K/uL Lymph # (Auto) 5.50 H (0.90-2.90) K/uL Irwin # (Auto) 1.40 H (0.00-0.90) K/UL Eos # (Auto) 0.30 (0.00-0.50) K/uL Baso # (Auto) 0.10 (0.00-0.30) K/uL Abs Immat Gran (auto) 0.00 (0.00-0.30) K/uL Imm/Tot Granulo (auto) 0.1 % Diff Slide Review Acceptable Review (Acceptable) VBG pH 7.379 (7.32-7.43) VBG pCO2 51 H (40-50) mmHG VBG pO2 33.7 (25-47) mmHG VBG HCO3 30 H (21-28) mmol/L Sodium 139 (135-149) mmol/L Potassium 3.3 L (3.6-5.1) mmol/L Chloride 104 (96-114) mmol/L Carbon Dioxide 30 (20-32) mmol/L Anion Gap 5 L (7-15) mEq/L BUN 17 (7-30) mg/dL Creatinine 1.5 (0.5-1.5) mg/dL Estimated Creat Clear 35.09 Estimated GFR 42 ml/min Glucose 66 (60-115) mg/dL Lactate 1.7 (0.5-1.9) mmol/L Calcium 9.0 (8.4-10.6) mg/dL Total Bilirubin 0.6 (0.1-1.5) mg/dL AST 23 (12-35) U/L ALT 15 (4-35) U/L Alkaline Phosphatase 82 (40-150) U/L Total Creatine Kinase 200 H (41-117) U/L Troponin I < 0.01 L (0.01-0.04) ng/mL C-Reactive Protein 1.0 Cancelled (0.5-1.0) mg/dL NT-Pro-B Natriuret Pep 77 pg/mL Total Protein 6.9 (6.0-8.3) g/dL Albumin 3.6 (3.3-5.0) g/dL Urine Color (Yellow) Urine Appearance (Clear) Urine pH (5.0-8.5) Ur Specific [place] (1.000-1.030) Urine Protein (Negative) Urine Glucose (UA) (Negative) Urine Ketones (Negative) Urine Blood (Negative) Urine Nitrite (Negative) Urine Bilirubin (Negative) Urine Urobilinogen (0.2-1.0) Ur Leukocyte Esterase (Negative) Urine RBC (0-2) Urine WBC (0-5) Ur Squamous Epith Cells (None-Few) Urine Bacteria (None) Fine Granular Casts (None) Urine Opiates Screen (Negative) Ur Oxycodone Screen (Negative) Urine Methadone Screen (Negative) Ur Barbiturates Screen (Negative) U Tricyclic Antidepress (Negative) Ur Phencyclidine Scrn (Negative) Ur Amphetamines Screen (Negative) U Methamphetamines Scrn (Negative) U Benzodiazepines Scrn (Negative) Urine Cocaine Screen (Negative) U Marijuana (THC) Screen (Negative) Ur Drug Screen Comment Ethyl Alcohol < 0.01 L (0.01-0.03) % Lab Acknowledgement POC Troponin I 0.20 H (0.01-0.04) ng/ml 10/22/23 10/22/23 10/22/23 Range/Units 16:30 16:31 18:08 WBC (4.50-11.00) K/uL RBC (4.00-5.20) m/uL Hgb (12.0-16.0) gm/dL Hct (33.0-51.0) % MCV (80-100) fL MCH (26-34) pg MCHC (32-36) gm/dL RDW Coeff of Ximena (11.5-15.5) % Plt Count (140-440) K/uL Neut % (Auto) (42.0-72.0) % Lymph % (Auto) (20-44) % Irwin % (Auto) (0.0-11.0) % Eos % (Auto) (0.0-7.0) % Baso % (Auto) (0.0-3.0) % Neut # (Auto) (1.7-7.0) K/uL Lymph # (Auto) (0.90-2.90) K/uL [place] # (Auto) (0.00-0.90) K/UL Eos # (Auto) (0.00-0.50) K/uL Baso # (Auto) (0.00-0.30) K/uL Abs Immat Gran (auto) (0.00-0.30) K/uL Imm/Tot Granulo (auto) % Diff Slide Review (Acceptable) VBG pH (7.32-7.43) VBG pCO2 (40-50) mmHG VBG pO2 (25-47) mmHG VBG HCO3 (21-28) mmol/L Sodium (135-149) mmol/L Potassium (3.6-5.1) mmol/L Chloride (96-114) mmol/L Carbon Dioxide (20-32) mmol/L Anion Gap (7-15) mEq/L BUN (7-30) mg/dL Creatinine (0.5-1.5) mg/dL Estimated Creat Clear Estimated GFR ml/min Glucose (60-115) mg/dL Lactate (0.5-1.9) mmol/L Calcium (8.4-10.6) mg/dL Total Bilirubin (0.1-1.5) mg/dL AST (12-35) U/L ALT (4-35) U/L Alkaline Phosphatase (40-150) U/L Total Creatine Kinase (41-117) U/L Troponin I (0.01-0.04) ng/mL C-Reactive Protein (0.5-1.0) mg/dL NT-Pro-B Natriuret Pep pg/mL Total Protein (6.0-8.3) g/dL Albumin (3.3-5.0) g/dL Urine Color Yellow (Yellow) Urine Appearance Clear (Clear) Urine pH 6.0 (5.0-8.5) Ur Specific [place] 1.025 (1.000-1.030) Urine Protein 3+ A (Negative) Urine Glucose (UA) 2+ A (Negative) Urine Ketones Negative (Negative) Urine Blood 1+ A (Negative) Urine Nitrite Negative (Negative) Urine Bilirubin Negative (Negative) Urine Urobilinogen 0.2 (0.2-1.0) Ur Leukocyte Esterase Negative (Negative) Urine RBC 0-2 (0-2) Urine WBC 0-2 (0-5) Ur Squamous Epith Cells Few (None-Few) Urine Bacteria None (None) Fine Granular Casts Few A (None) Urine Opiates Screen Negative (Negative) Ur Oxycodone Screen Negative (Negative) Urine Methadone Screen Negative (Negative) Ur Barbiturates Screen Negative (Negative) U Tricyclic Antidepress Negative (Negative) Ur Phencyclidine Scrn Negative (Negative) Ur Amphetamines Screen Negative (Negative) U Methamphetamines Scrn Negative (Negative) U Benzodiazepines Scrn Negative (Negative) Urine Cocaine Screen Negative (Negative) U Marijuana (THC) Screen Negative (Negative) Ur Drug Screen Comment See Note Ethyl Alcohol Cancelled (0.01-0.03) % Lab Acknowledgement Test Added POC Troponin I (0.01-0.04) ng/ml Imaging Data CT scan - head: Attestation: I have reviewed the pertinent imaging results. Radiologist's impression: The ventricles and cortical sulci appear age appropriate in configuration. No midline shift or mass effect, hydrocephalus or herniation. No acute intracranial hemorrhage or abnormal extra-axial fluid collection. Small chronic-appearing infarcts in the left frontal periventricular region, right basal ganglia, and right cerebellar hemisphere. Preserved graf-white matter differentiation. Major intracranial vasculature is unremarkable for technique. Intact calvarium. Clear paranasal sinuses and mastoid air cells. Bilateral lens implants. IMPRESSION: 1. No skull fracture or acute intracranial abnormality identified. 2. A few scattered small chronic infarcts as detailed. Cervical spine CT: Attestation: I have reviewed the pertinent imaging results. Radiologist's impression: Slight reversal of the normal cervical lordosis. Craniocervical junction appears within normal limits. No acute fracture identified. No suspicious high density material is seen in the central spinal canal no evidence to suggest high-grade neural foraminal stenosis. No concerning findings identified in the paraspinal soft tissues given artifact limitations. No focal mass, consolidation, or pneumothorax within the included lung apices. Impression: 1. No CT evidence of acute fracture or traumatic malalignment in the cervical spine. Chest: Attestation: I have reviewed the pertinent imaging results. ECG Data Attestation: I personally reviewed and interpreted this ECG as follows: ECG interpretation date: 10/22/23 Interpretation: EKG by my read shows sinus rhythm at a rate of 99. I do not note any acute ST or T-wave changes. QT intervals a prolonged at 0.513. Discharge Plan Discharge Clinical Impression: Altered mental status, Weakness Patient Disposition: Admitted As Observation Condition: Improved
--- NOTE | 2023-10-22 15:27 | CRLHL7_ITS ---
For Patients: As a result of the Century Cures Act, medical imaging exams and procedure reports are released immediately into your electronic medical record. You may view this report before your referring provider. If you have questions, please contact your health care provider. INDICATION: Confusion. TECHNIQUE: Chest 1 views. COMPARISON: None. FINDINGS: Cardiovascular and mediastinum: Heart size and vasculature are normal in caliber and appearance. Lungs and pleural spaces: Low lung volumes. No sign of infiltrate or mass. No sign of pleural effusion. No pneumothorax. Bones and soft tissues: No significant findings. IMPRESSION: Low lung volumes. No acute or significant findings. Dictated by Chintan Ojeda MD @ 10/22/2023 6:54:56 PM (Electronically Signed)
--- NOTE | 2023-10-22 15:27 | CRLHL7_ITS ---
For Patients: As a result of the Century Cures Act, medical imaging exams and procedure reports are released immediately into your electronic medical record. You may view this report before your referring provider. If you have questions, please contact your health care provider. Indication: Frequent falls, confused Technique: Noncontrast axial CT of the cervical spine with coronal and sagittal reformats. Comparison: Same-day CT head Findings: Artifact degrades image quality and limits evaluation. Slight reversal of the normal cervical lordosis. Craniocervical junction appears within normal limits. No acute fracture identified. No suspicious high density material is seen in the central spinal canal no evidence to suggest high-grade neural foraminal stenosis. No concerning findings identified in the paraspinal soft tissues given artifact limitations. No focal mass, consolidation, or pneumothorax within the included lung apices. Impression: 1. No CT evidence of acute fracture or traumatic malalignment in the cervical spine. Please note that all CT scans at this facility use dose modulation, iterative reconstruction, and/or weight-based dosing when appropriate to reduce radiation dose to as low as reasonably achievable. Dictated by Yolis Gutierrez MD @ 10/22/2023 5:30:36 PM (Electronically Signed)
--- NOTE | 2023-10-22 15:27 | CRLHL7_ITS ---
For Patients: As a result of the Century Cures Act, medical imaging exams and procedure reports are released immediately into your electronic medical record. You may view this report before your referring provider. If you have questions, please contact your health care provider. INDICATION: Frequent falls, confusion TECHNIQUE: Noncontrast axial CT of the head. Coronal and sagittal reformats. Bone and soft tissue algorithms. COMPARISON: No relevant comparison studies available at this institution. FINDINGS: The ventricles and cortical sulci appear age appropriate in configuration. No midline shift or mass effect, hydrocephalus or herniation. No acute intracranial hemorrhage or abnormal extra-axial fluid collection. Small chronic-appearing infarcts in the left frontal periventricular region, right basal ganglia, and right cerebellar hemisphere. Preserved graf-white matter differentiation. Major intracranial vasculature is unremarkable for technique. Intact calvarium. Clear paranasal sinuses and mastoid air cells. Bilateral lens implants. IMPRESSION: 1. No skull fracture or acute intracranial abnormality identified. 2. A few scattered small chronic infarcts as detailed. Please note that all CT scans at this facility use dose modulation, iterative reconstruction, and/or weight-based dosing when appropriate to reduce radiation dose to as low as reasonably achievable. Dictated by Yolis Gutierrez MD @ 10/22/2023 5:27:26 PM (Electronically Signed)
[2023-10-22 16:48] LABS: HCO3 VBG 30 mmol/L (21-28); PCO2 VBG 51 mmHG (40-50); PO2 VBG 33.7 mmHG (25-47); pH VBG 7.379 (7.32-7.43)
[2023-10-22 16:57] LABS: Basophils Percent Auto 0.6 % (0.0-3.0); Eosinophils Percent Auto 2.5 % (0.0-7.0); Hematocrit 43.4 % (33.0-51.0); Hemoglobin* 13.7 gm/dL (12.0-16.0); Immature Granulocytes Pct Auto 0.1 %; Lymphocytes Percent Auto 42.2 % (20-44); Mean Corpuscular HGB Conc 32 gm/dL (32-36); Mean Corpuscular Hemoglobin 29 pg (26-34); Mean Corpuscular Volume 90 fL (80-100); Monocytes Percent Auto 10.7 % (0.0-11.0); Neutrophils Percent Auto 43.9 % (42.0-72.0); Platelet Count* 378 K/uL (140-440); RDW Coefficient of Variation % 13.8 % (11.5-15.5); Red Blood Count 4.81 m/uL (4.00-5.20); White Blood Count* 12.95 K/uL (4.50-11.00)
[2023-10-22 17:07] LABS: Albumin* 3.6 g/dL (3.3-5.0); Chloride* 104 mmol/L (96-114); Slide Review Reflex Yes
[2023-10-22 17:08] LABS: Potassium* 3.3 mmol/L (3.6-5.1); Sodium* 139 mmol/L (135-149)
[2023-10-22 17:10] LABS: Bilirubin Total* 0.6 mg/dL (0.1-1.5); Creatinine* 1.5 mg/dL (0.5-1.5); Est. Creatinine Clearance* 35.09; Estimated Glomerular Filt Rate 42 ml/min; Lactate* 1.7 mmol/L (0.5-1.9)
[2023-10-22 17:11] LABS: Alanine Aminotransferase* 15 U/L (4-35); Alkaline Phosphatase* 82 U/L (40-150); Anion Gap 5 mEq/L (7-15); Aspartate Amino Transferase* 23 U/L (12-35); Blood Urea Nitrogen* 17 mg/dL (7-30); Carbon Dioxide* 30 mmol/L (20-32); Creatine Kinase* 200 U/L (41-117); Glucose* 66 mg/dL (60-115); Total Protein* 6.9 g/dL (6.0-8.3)
[2023-10-22 17:17] LABS: Ethanol* < 0.01 % (0.01-0.03)
[2023-10-22 17:23] LABS: NT Pro B Type NatriureticPept* 77 pg/mL; Troponin I* < 0.01 ng/mL (0.01-0.04)
[2023-10-22 18:21] LABS: Appearance Urine Clear (Clear); Bilirubin Urine Negative (Negative); Blood Urine 1+ (Negative); Color Urine Yellow (Yellow); Glucose Urine 2+ (Negative); Ketones Urine Negative (Negative); Leukocyte Esterase Urine Negative (Negative); Nitrite Urine Negative (Negative); Protein Urine 3+ (Negative); Specific Gravity Urine 1.025 (1.000-1.030); Urobilinogen Urine 0.2 (0.2-1.0)
[2023-10-22 18:28] LABS: Amphetamine Screen Urine Negative (Negative); Barbiturate Screen Urine Negative (Negative); Benzodiazepines Screen Urine Negative (Negative); Cannabinoid Screen Urine Negative (Negative); Cocaine Screen Urine Negative (Negative); Methadone Screen Urine Negative (Negative); Methamphetamines Screen Urine Negative (Negative); Opiate Screen Urine Negative (Negative); Oxycodone Screen Urine Negative (Negative); Phencyclidine Screen Urine Negative (Negative); Tricyclic Antidepressant Urine Negative (Negative)
[2023-10-22 18:29] LABS: Slide Review Acceptable Review (Acceptable)
[2023-10-22 18:52] LABS: RBC Urine 0-2 (0-2); Squamous Epithelial Cell Urine Few (None-Few); WBC Urine 0-2 (0-5)
--- NOTE | 2023-10-22 18:52 | ED.NURSE ---
Report given to timmy RAMIREZ. Pt to [id number]
[2023-10-22 18:53] LABS: Fine Granular Casts Urine Few
--- NOTE | 2023-10-22 19:08 | PM.IMHP1 ---
Hospitalist- H&P: HPI History of Present Illness Date Seen: 10/22/23 Chief complaint: Confusion, falls Narrative: Cindy Alonso is a 53 year old female who presented to the ER by EMS today for concerns of confusion. Son is present during H&P and assists with history. They have noticed increasing confusion and weakness, approximately over the past week. She has also had an increase in falls over the past few weeks, including a few where she hit her head. No LOC. No concerning preceding symptoms accompany her falls. Most of the falls happen after she's fallen asleep in a seated position. No known history of HENRY, has never had a sleep study. + snoring. No chest pain, no dyspnea. Has had an intermittent cough and wheeze over the past week, no known history of asthma. No hemoptysis or chest pain. Mildly decreased po intake. ER Course and Findings: - K of 3.3 - Creatinine of 1.5, GFR 42 (outpatient baseline: Cr 1.0, GFR 60s), CK 200 - negative troponin x2, no concerning EKG findings - negative CT C-Spine, head CT reveals scattered small chronic infarcts, no acute abnormalities Review of Systems Narrative: - + LE edema bilaterally, mild discomfort L calf PFSH [facility] Medical History (Updated 10/22/23 @ 21:41 by Charlotte Davis MD) BMI 40.0-44.9, adult ?Z68.41 - Body mass index [BMI] 40.0-44.9, adult (ICD-10) Anxiety ?F41.9 - Anxiety disorder, unspecified (ICD-10) Diabetic retinopathy ?E11.319 - Type 2 diabetes mellitus with unspecified diabetic retinopathy without macular edema (ICD-10) Hyperlipidemia ?E78.5 - Hyperlipidemia, unspecified (ICD-10) Essential hypertension ?I10 - Essential (primary) hypertension (ICD-10) Diabetes mellitus, type 2 ?E11.9 - Type 2 diabetes mellitus without complications (ICD-10) Surgical History (Updated 10/22/23 @ 20:27 by Charlotte Davis MD) History of delivery ?Z98.891 - History of uterine scar from previous surgery (ICD-10) Hx of colonoscopy ?Z98.890 - Other specified postprocedural states (ICD-10) Social History (Updated 10/22/23 @ 20:35 by Charlotte Davis MD) Narrative: Cindy is a nonsmoker, no ETOH use. Son Jones would be medical decision maker if needed. She requests DNR/DNI status. Smoking Status: Never smoker How often do you have a drink containing alcohol: never How often do you have six or more drinks on one occasion: Never AUDIT-C Alcohol total score: 0 Non-prescribed substance use: denies use service: No Meds Home Medications and Allergies Home Medications ?Medication ?Instructions ?Recorded ?Confirmed ?Type atorvastatin 40 mg tablet 40 mg PO DAILY 09/20/23 10/22/23 History brimonidine 0.2 % eye drops 1 drp ophthalmic (eye) DAILY 09/20/23 10/22/23 History insulin glargine 100 unit/mL (3 35 unit subcut HS 09/20/23 10/22/23 History mL) subcutaneous pen (Lantus Solostar U-100 Insulin) insulin lispro 100 unit/mL 1 sliding scale dose subcut 09/20/23 History subcutaneous pen (Humalog KwikPen (U-100) Insulin) metformin 1,000 mg tablet 1,000 mg PO BID 10/22/23 10/22/23 History Home Medication Comments: - also on Lisinopril 40mg Qday - for SSI, often takes 20U BID-TID with meals - Spironolactone, Chlorthalidone, and Amlodipine on chart - unclear if taking Allergies Allergy/AdvReac Type Severity Reaction Status Date / Time No Known Drug Allergies Allergy Verified 12/19/22 23:49 Exam Narrative: Exam Narrative: GEN: Awake, intermittently seems sleepy during visit. Answering questions appropriately, occasionally slurring her words HEENT: No concerning eye movements, tongue protrudes midline CV: RRR, No concerning murmurs R: LCTA bilaterally without concerning wheezing, air movement is adequate. RR 20. Wheezing seems to be coming from upper airway Ab: Protuberant, no ttp Back: Normal contours, no skin abnormalities Ext: 3+ pitting edema BLE with dry skin anteriorly Skin: No concerning skin lesions or rashes on exposed skin Neuro: No resting tremor or focal deficits during exam Psych: No agitation, no significant confusion Const: Vital Signs, click to edit/add: Vital Signs - 24 hr 10/22/23 15:01 10/22/23 17:15 10/22/23 17:17 Temperature 97.8 F Pulse Rate 99 98 Pulse Rate [Pulse Oximeter] 106 H Respiratory Rate 26 H Blood Pressure 176/103 H Blood Pressure [Ri ght Forearm] 165/88 H Pulse Oximetry 100 97 92 Oxygen Delivery [facility] Room Air 10/22/23 17:22 10/22/23 17:23 10/22/23 17:30 Temperature Pulse Rate 99 99 Pulse Rate [Pulse Oximeter] Respiratory Rate Blood Pressure 183/106 H Blood Pressure [Ri ght Forearm] Pulse Oximetry 96 98 [facility] 10/22/23 17:42 10/22/23 18:02 Temperature Pulse Rate Pulse Rate [Pulse Oximeter] Respiratory Rate Blood Pressure 160/90 H 174/91 H Blood Pressure [Ri ght Forearm] Pulse Oximetry Oxygen Delivery [facility] Hospitalist - H&P: Result Labs Labs: Short CBC 10/22/23 Range/Units 16:30 WBC 12.95 H (4.50-11.00) K/uL Hgb 13.7 (12.0-16.0) gm/dL Hct 43.4 (33.0-51.0) % Plt Count 378 (140-440) K/uL BMP 10/22/23 16:30 Sodium 139 Potassium 3.3 L Chloride 104 Carbon Dioxide 30 BUN 17 Creatinine 1.5 Glucose 66 Calcium 9.0 Cardiac Enzymes 10/22/23 Range/Units 16:30 Total Creatine Kinase 200 H (41-117) U/L Troponin I < 0.01 L (0.01-0.04) ng/mL Liver Function 10/22/23 Range/Units 16:30 Total Bilirubin 0.6 (0.1-1.5) mg/dL AST 23 (12-35) U/L ALT 15 (4-35) U/L Alkaline Phosphatase 82 (40-150) U/L Albumin 3.6 (3.3-5.0) g/dL Urine 10/22/23 Range/Units 18:08 Urine Color Yellow (Yellow) Urine Appearance Clear (Clear) Urine pH 6.0 (5.0-8.5) Ur Specific [place] 1.025 (1.000-1.030) Urine Protein 3+ A (Negative) Urine Glucose (UA) 2+ A (Negative) Assessment and Plan Assessment and plan (1) Altered mental status: Problem comment: - fairly clear on admission 10/21, does have some psychomotor slowing and speech slurring - will obtain MRI, TSH, urine culture - therapies ordered to assist in evaluation Status: Acute (2) Weakness: Problem comment: - likely combination of OHS, HENRY, deconditioning, DM2 - therapies ordered, MRI of head Status: Acute (3) Falls: Problem comment: - no true syncope per history, potentially related to daytime somnolence 2/2 HENRY - d-dimer elevated, will obtain PE study Status: Acute (4) Essential hypertension: Problem comment: - elevated BPs, typically on Lisinopril as an outpatient; holding for BRADEN - chart also notes history of Chlorthalidone/Spironolactone/Amlodipine, not currently taking - add back low dose Amlodipine, consider adding back in Chlorthalidone/K when renal function improves Status: Acute (5) Diabetes mellitus, type 2: Problem comment: - insulin dependent, last A1C 12.4 - continue home Lantus dosing and SSI, holding Metformin 2/2 BRADEN Status: Acute (6) Acute kidney injury: Problem comment: - creatinine 1.5, outpatient baseline 1 - hold Metformin and Lisinopril, IVFs overnight, recheck in am Status: Acute (7) Rhabdomyolysis: Problem comment: - mild, CK of 200 on 10/21 - low dose IVFs, recheck in am Status: Acute (8) Hypokalemia: Problem comment: - replace and follow, will also check magnesium Status: Acute (9) Edema: Problem comment: - iatrogenic vs cardiac vs hepatic vs dependent - consider LE ultrasound pending results of CTA chest - last TTE in 2021: Final Impressions: 1. Technically limited exam. 2. Normal LV size, moderately increased wall thickness, normal global systolic function with an estimated EF of 60 - 65%. 3. Right ventricular cavity size is not well visualized, global systolic RV function is not well visualized. 4. The aortic valve is sclerotic, no stenosis and trivial regurgitation. 5. The mitral valve is sclerotic, trace mitral regurgitation. 6. No pericardial effusion. Status: Acute Plan - per above - son and daughter updated at bedside, questions answered
[2023-10-22 20:17] LABS: PCR FLU A Negative PCR FLU A (Negative); PCR FLU B Negative PCR FLU B (Negative); PCR RSV Negative PCR RSV (Negative); SARS PCR* Negative SARS-CoV-2 (Negative)
[2023-10-22 20:36] LABS: D Dimer Quantitative* 0.81 ug/ml (0.00-0.50)
--- NOTE | 2023-10-22 20:50 | CRLHL7_ITS ---
For Patients: As a result of the Century Cures Act, medical imaging exams and procedure reports are released immediately into your electronic medical record. You may view this report before your referring provider. If you have questions, please contact your health care provider. INDICATION: Elevated D-dimer, lower extremity edema, tachycardia and tachypnea TECHNIQUE: CT chest with i.v. contrast using pulmonary angiographic technique. Coronal and sagittal reformats were obtained. CONTRAST: 95 mL Isovue 370 COMPARISON: None FINDINGS: The sensitivity and specificity of the exam are moderately limited by the patient`s body habitus. Cardiovascular: No CT evidence of central pulmonary embolism seen. The 3rd and higher order pulmonary vessels cannot be evaluated due to patient motion. Moderate biventricular cardiomegaly is present with left ventricular hypertrophy. No sign of aneurysm in the thoracic aorta. Mediastinum: No mass or adenopathy seen. Lung: Both lungs are unremarkable in appearance. Pleura and pericardium: No sign of pleural effusion seen. No significant pericardial effusion is present. Chest wall and axilla: Bilateral axillary lymph nodes are present measuring up to 9 mm. Bone: Unremarkable for age. Upper abdomen: Multiple splenules are seen in the left upper quadrant. IMPRESSIONS: 1. No CT evidence of central pulmonary embolism seen. The 3rd and higher order pulmonary vessels cannot be evaluated due to patient motion. 2. Moderate biventricular cardiomegaly is present with left ventricular hypertrophy. Dictated by Harsh Villaseñor MD @ 10/23/2023 12:01:30 AM Please note that all CT scans at this facility use dose modulation, iterative reconstruction, and/or weight-based dosing when appropriate to reduce radiation dose to as low as reasonably achievable. Dictated by: Harsh Villaseñor MD @ 10/23/2023 00:01:35 (Electronically Signed)
[2023-10-22] MEDS: SODIUM CHLORIDE 0.9 % (FLUSH) 10 ML SYRINGE 5 ML IVF (22:53)
[2023-10-23 04:00] VITALS: BP 147/75; PULSE 106; RESP 24; TEMP 37.3; O2SAT 97
[2023-10-23 06:24] LABS: HCO3 VBG 27 mmol/L (21-28); PCO2 VBG 44 mmHG (40-50); PO2 VBG 49.5 mmHG (25-47); pH VBG 7.402 (7.32-7.43)
[2023-10-23 06:28] LABS: Basophils Absolute Auto 0.07 K/uL (0.00-0.30); Basophils Percent Auto 0.8 % (0.0-3.0); Eosinophils Percent Auto 3.4 % (0.0-7.0); Hematocrit 38.5 % (33.0-51.0); Hemoglobin* 12.2 gm/dL (12.0-16.0); Immature Granulocytes Abs Auto 0.02 K/uL (0.00-0.30); Immature Granulocytes Pct Auto 0.2 %; Lymphocytes Absolute Auto 3.06 K/uL (0.90-2.90); Lymphocytes Percent Auto 35.1 % (20-44); Mean Corpuscular HGB Conc 32 gm/dL (32-36); Mean Corpuscular Hemoglobin 29 pg (26-34); Mean Corpuscular Volume 91 fL (80-100); Monocytes Percent Auto 8.8 % (0.0-11.0); Neutrophils Absolute Auto 4.51 K/uL (1.7-7.0); Neutrophils Percent Auto 51.7 % (42.0-72.0); Platelet Count* 304 K/uL (140-440); Red Blood Count 4.23 m/uL (4.00-5.20); White Blood Count* 8.73 K/uL (4.50-11.00)
[2023-10-23 06:29] LABS: Slide Review Reflex No
[2023-10-23] MEDS: OMEPRAZOLE 20 MG CAPSULE DR 40 MG PO (06:32)
[2023-10-23 06:41] LABS: Chloride* 106 mmol/L (96-114); Potassium* 3.4 mmol/L (3.6-5.1); Sodium* 137 mmol/L (135-149)
[2023-10-23 06:44] LABS: Anion Gap 5 mEq/L (7-15); Blood Urea Nitrogen* 15 mg/dL (7-30); Carbon Dioxide* 26 mmol/L (20-32); Creatinine* 1.5 mg/dL (0.5-1.5); Est. Creatinine Clearance* 35.09; Estimated Glomerular Filt Rate 42 ml/min; Glucose* 349 mg/dL (60-115)
[2023-10-23 06:45] LABS: Calcium* 8.1 mg/dL (8.4-10.6); Magnesium* 2.2 mg/dL (1.5-2.6)
[2023-10-23 06:56] LABS: Troponin I* 0.02 ng/mL (0.01-0.04)
[2023-10-23 07:00] VITALS: BP 168/100; PULSE 106; PULSE 109; RESP 28; TEMP 36.9; O2SAT 95
[2023-10-23 07:10] LABS: Creatine Kinase* 157 U/L (41-117)
--- NOTE | 2023-10-23 07:43 | CRLHL7_ITS ---
For Patients: As a result of the Cures Act, medical imaging exams and procedure reports are released immediately into your electronic medical record. You may view this report before your referring provider. If you have questions, please contact your health care provider. INDICATION: Altered mental status. Slurred speech. TECHNIQUE: Brain MRI without contrast. COMPARISON: Head CT from 10/22/2023. FINDINGS: Multiple foci of diffusion restriction within both cerebral hemispheres, involving the right frontal lobe, left anterior cingulate gyrus, bilateral lovell radiata/periventricular white matter, the right-sided basal ganglia including the internal capsule posterior limb, the bilateral peritrigonal white matter, the bilateral occipital lobes and extensively within the right lateral cerebellar hemisphere. Variable accompanying FLAIR hyperintensity. These are consistent with acute to subacute infarcts involving multiple vascular territories. There are additionally some areas of chronic infarction involving the basal ganglia. No evidence of acute or chronic intracranial blood products. No mass effect or herniation. No hydrocephalus or extra-axial collections. The pituitary gland, parasellar structures and optic chiasm are normal. All the major intracranial vascular structures demonstrate normal flow-related signal. The orbital contents are normal. No calvarial or skull base marrow replacing process. No obstructive sinus disease. No extracranial soft tissue findings. IMPRESSION: 1. 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 Largest area of infarction involves the right cerebellar hemisphere. 2. No evidence of acute or chronic intracranial hemorrhage. Dictated by Fabian Reza MD @ 10/23/2023 5:22:04 PM (Electronically Signed)
--- NOTE | 2023-10-23 07:56 | PC.NURSE ---
END OF SHIFT NOTE: A&O. DENIES CP AND N/V. AMBULATES WITH A1, WALKER AND GB. SPO2 MID-HIGH 90'S ON RA; AFEBRILE. TACHYPNEIC 24-32 RESPIRATIONS PER MINUTE. SOB WITH ACTIVITY. FALLS ASLEEP FREQUENTLY ON TOILET. SPEECH SLURRED AND MUMBLED. NIGHT UNEVENTFUL. DAUGHTER GALINA AND SON ELLEN AT BEDSIDE. CALL LIGHT WITHIN PT?S REACH.?
[2023-10-23] MEDS: INSULIN ASPART 100 UNIT/ML SUBCUT ×4 (08:14→21:48)
[2023-10-23] MEDS: SODIUM CHLORIDE 0.9 % (FLUSH) 10 ML SYRINGE 5 ML IVF ×2 (08:14→21:50)
--- NOTE | 2023-10-23 09:41 | NUTR.NU ---
RDN with MD consult for diabetic teaching. Patient admitted with altered mental status and weakness. Not appropriate at this time to provide diet education. RDN will attempt to visit at later date when more appropriate. Continue to monitor.
--- NOTE | 2023-10-23 10:15 | CRLHL7_ITS ---
For Patients: As a result of the Century Cures Act, medical imaging exams and procedure reports are released immediately into your electronic medical record. You may view this report before your referring provider. If you have questions, please contact your health care provider. INDICATION: Bilateral lower extremity edema TECHNIQUE: Ultrasound venous duplex lower extremity bilateral. Compression venous exam was performed using graf-scale, color Doppler, and spectral Doppler imaging. COMPARISON: None. FINDINGS: Sonographic imaging demonstrates the common femoral, deep femoral, superficial femoral, popliteal, posterior tibial and greater saphenous veins to be fully compressible with normal color Doppler blood flow in both lower extremities. IMPRESSION: Normal bilateral lower extremity venous ultrasound, no sign of deep venous thrombosis. Dictated by Ramesh Diez MD @ 10/23/2023 1:32:57 PM (Electronically Signed)
[2023-10-23 11:00] VITALS: BP 182/109; BP 195/113; PULSE 99; RESP 30; TEMP 36.6; O2SAT 91
--- NOTE | 2023-10-23 12:09 | PM.IMPN1 ---
Progress Note: A&P Assessment and plan (1) Altered mental status: Problem details: - fairly clear on admission 10/21, does have some psychomotor slowing and speech slurring - CT head shows no skull fracture or acute intracranial abnormality, few scattered small chronic infarcts noted. CT C-spine without acute findings. - no acute infectious process yet found, TSH 1.54, UA rather unremarkable, urine drug screen negative, blood alcohol unremarkable, triple swab negative - denies alcohol use, vapes on occasion - poorly controlled diabetes, poor blood pressure management, will need outpatient formal sleep study, obesity, knee pain/deconditioning - therapies ordered to assist in evaluation -10/22 remains oriented but somnolent, easily falling asleep during interview. Continues with slurred speech. No difficulty with word finding. Family reports similar episode two other times in past year, thought initially to be related to hypoglycemia, but on evaluation, sugars were actually elevated. Dyspneic on exertion, tachypneic with extended recovery time. MRI this afternoon for further evaluation. Consider Neurology consult following results. Could obtain labs for metals but these would be sent out Status: Acute (2) Weakness: Problem details: - likely combination of OHS, HENRY, deconditioning, DM2 - per family, chronic, worsening - therapies ordered Status: Acute (3) Falls: Problem details: - no true syncope per history, potentially related to daytime somnolence 2/2 HENRY, h/o left knee pain, holds onto zuniga for support - chronic, recurrent, increasing over past year per family. ED visit 09/20/23 fall with L knee pain, xray without acute abnormalities. Addressed with PCP 09/26/23 - d-dimer elevated, PE study negative, BLE US neg for DVT - MRI this afternoon. ECHO ordered - follow up with PCP for sleep study Status: Acute (4) Essential hypertension: Problem details: - elevated BPs, typically on Lisinopril as an outpatient; holding for BRADEN - chart also notes history of Chlorthalidone/Spironolactone/Amlodipine, not currently taking - add back low dose Amlodipine, consider adding back in Chlorthalidone/K when renal function improves - BP during office visit 09/26/23 was 182/107 - close outpatient follow up for BP management Status: Acute (5) Diabetes mellitus, type 2: Problem details: - poorly controlled, insulin dependent, last A1C 12.4 - usual home Lantus dose recently increased to 38 units. Will start with 20 units until improved mental status and adequate oral intake, adjusting as appropriate - hold home Lispro 20 units t.i.d. with meals, using ISS for now, adjusting as necessary - hold metformin - glucose checks ACHS Status: Acute (6) Acute kidney injury: Problem details: - creatinine 1.5, outpatient baseline 1-1.1 - hold Metformin and Lisinopril - continue gentle IV hydration, recheck with morning labs Status: Acute (7) Rhabdomyolysis: Problem details: - mild, CK of 200 on 10/21, 157 on recheck - low dose IVFs Status: Acute (8) Hypokalemia: Problem details: - replace and follow, 3.4 this morning, magnesium 2.2 Status: Acute (9) Edema: Problem details: - iatrogenic vs cardiac vs hepatic vs dependent. Chronic - LE US negative for DVTs - last TTE in 2021: Final Impressions: 1. Technically limited exam. 2. Normal LV size, moderately increased wall thickness, normal global systolic function with an estimated EF of 60 - 65%. 3. Right ventricular cavity size is not well visualized, global systolic RV function is not well visualized. 4. The aortic valve is sclerotic, no stenosis and trivial regurgitation. 5. The mitral valve is sclerotic, trace mitral regurgitation. 6. No pericardial effusion. - will give one dose lasix and monitor. LE compression wraps - repeat ECHO Status: Chronic (10) Tachypnea: Problem details: - D-dimer elevated, CTA PE study negative for PEs, moderate biventricular cardiomegaly present with left ventricular hypertrophy - BLE ultrasound negative for DVTs Status: Acute (11) Dyspnea on exertion: Problem details: - D-dimer elevated, CTA PE study negative for PEs, moderate biventricular cardiomegaly present with left ventricular hypertrophy - echo ordered - 1 dose Lasix ordered for edema, will give oral potassium to supplement, currently 3.4 Status: Acute Plan Patient remains somnolent, weak, with obvious slurred speech, currently not safe to return home. Requiring further workup including MRI this afternoon. Will consider Neurology consult following results. Has been dyspneic with exertion and tachypneic. CTA chest and lower extremity ultrasound negative for PE or DVTs. Echocardiogram has been ordered. Will trial a dose of Lasix. Time Spent With Patient Total time spent: Total time spent caring for the patient today was 60 minutes. This includes time spent for the visit reviewing the chart, time spent during the visit, time spent after the visit and documentation and planning in coordination of care. Subjective Date Seen: 10/23/23 Interval history: Patient is seen with son and daughter at bedside. She has just completed physical therapy and reported to become quite dyspneic and tachypneic walking half the length of the room. Patient is now sitting in a chair and remains tachypneic. She is not hypoxic, oxygen saturations > 90%. She is awake and oriented x3 however quite somnolent, easily falling asleep during interview. Her family provides history with patient in agreement. Patient currently denies headache or dizziness. Denies chest pain, tightness. While she is tachypneic she does not tell me that she necessarily feel short of breath. Denies nausea or vomiting. Denies pain of any sort currently while at rest. Per family, patient has been struggling with left knee pain for quite some time. She walks most days holding onto zuniga to support herself. She has had falls over the past year increasing more recently. She has been seen in the ED for a fall as well as has addressed this with her PCP in the past month. Family tells me these episodes of altered mental status with slurring of speech are not new either. She she has had at least 2 episodes in the past year. Her son thought perhaps these were related to low blood sugars however this was unfounded, the ED visit actually showing that her sugars were >300. She has not had any formal workup otherwise. Recently, in the past week she has become more somnolent, weaker, falling, and slurring her speech. She does not work outside the home. Her children tell me she does not do much housework either secondary to her left knee pain and falls and weakness. She does not smoke cigarettes. She does vape though much less than she used to. No known drug use, urine drug screen is negative. Is not taking narcotics or benzodiazepines. She does not drink, blood alcohol was negative. No known toxic exposures. Exam Narrative: Exam Narrative: PHYSICAL EXAM General: Sitting up in a chair, tachypneic, oriented, somnolent HEENT: Normocephalic, atraumatic, sclera white, EOMI, oral mucosa moist Cardiovascular: Tachycardic, +2 pitting edema bilateral lower extremities Pulmonary: CTA bilaterally without rhonchi, rales, expiratory wheezes. Tachypneic Abdominal: Soft, nondistended, NTTP Neurological: Answering questions appropriately, somnolent, easily falling asleep cranial nerves intact, no focal findings Extremities: AROMI. Neurovascularly intact Skin: Warm, dry. Const: Vital Signs, click to edit/add: Vital Signs - 24 hr 10/22/23 15:01 10/22/23 17:15 10/22/23 17:17 Temperature 97.8 F Pulse Rate 99 98 Pulse Rate [Pulse Oximeter] 106 H Respiratory Rate 26 H Blood Pressure 176/103 H Blood Pressure [Le ft Arm] Blood Pressure [Ri ght Arm] Blood Pressure [Ri ght Forearm] 165/88 H Pulse Oximetry 100 97 [facility] 10/22/23 17:22 10/22/23 17:23 10/22/23 17:30 Temperature Pulse Rate 99 99 Pulse Rate [Pulse Oximeter] Respiratory Rate Blood Pressure 183/106 H Blood Pressure [Le ft Arm] Blood Pressure [Ri ght Arm] Blood Pressure [Ri ght Forearm] Pulse Oximetry 96 98 [facility] 10/22/23 17:42 10/22/23 18:02 10/22/23 20:39 Temperature 97.6 F Pulse Rate Pulse Rate [Pulse Oximeter] Respiratory Rate 28 H Blood Pressure 160/90 H 174/91 H Blood Pressure [Le ft Arm] Blood Pressure [Ri ght Arm] 159/86 H Blood Pressure [Ri ght Forearm] Pulse Oximetry 97 [facility] 10/22/23 20:39 10/22/23 22:00 10/22/23 22:00 Temperature Pulse Rate Pulse Rate [Pulse Oximeter] Respiratory Rate 28 H 32 H 32 H Blood Pressure Blood Pressure [Le ft Arm] Blood Pressure [Ri ght Arm] Blood Pressure [Ri ght Forearm] Pulse Oximetry 97 97 [facility] Room Air 10/22/23 23:00 10/23/23 04:00 10/23/23 07:00 Temperature 99.1 F Pulse Rate 103 H 106 H Pulse Rate [Pulse Oximeter] 106 H Respiratory Rate 24 Blood Pressure Blood Pressure [Le ft Arm] Blood Pressure [Ri ght Arm] 147/75 H Blood Pressure [Ri ght Forearm] Pulse Oximetry 97 Oxygen Delivery Me thod Room Air 10/23/23 07:00 10/23/23 07:00 10/23/23 07:00 Temperature 98.4 F Pulse Rate Pulse Rate [Pulse Oximeter] 106 H 109 H Respiratory Rate 28 H 28 H 28 H Blood Pressure Blood Pressure [Le ft Arm] 168/100 H Blood Pressure [Ri ght Arm] Blood Pressure [Ri ght Forearm] Pulse Oximetry 95 95 Oxygen Delivery Me thod Room Air Room Air 10/23/23 11:00 Temperature 98 F Pulse Rate Pulse Rate [Pulse Oximeter] 99 Respiratory Rate 30 H Blood Pressure Blood Pressure [Le ft Arm] 182/109 H Blood Pressure [Ri ght Arm] 195/113 H Blood Pressure [Ri ght Forearm] Pulse Oximetry 91 Oxygen Delivery Me thod Room Air Labs Labs: Laboratory Results - last 24 hr 10/22/23 10/22/23 10/22/23 15:27 16:30 16:30 WBC 12.95 H RBC 4.81 Hgb 13.7 Hct 43.4 MCV 90 MCH 29 MCHC 32 RDW Coeff of Ximena 13.8 Plt Count 378 Neut % (Auto) 43.9 Lymph % (Auto) 42.2 [place] % (Auto) 10.7 Eos % (Auto) 2.5 Baso % (Auto) 0.6 Neut # (Auto) 5.70 Lymph # (Auto) 5.50 H [place] # (Auto) 1.40 H Eos # (Auto) 0.30 Baso # (Auto) 0.10 Abs Immat Gran (auto) 0.00 Imm/Tot Granulo (auto) 0.1 Diff Slide Review Acceptable Review D-Dimer Quant (PE/DVT) 0.81 H VBG pH 7.379 VBG pCO2 51 H VBG pO2 33.7 VBG HCO3 30 H Sodium 139 Potassium 3.3 L Chloride 104 Carbon Dioxide 30 Anion Gap 5 L BUN 17 Creatinine 1.5 Estimated Creat Clear 35.09 Estimated GFR 42 Glucose 66 Lactate 1.7 Calcium 9.0 Magnesium Total Bilirubin 0.6 AST 23 ALT 15 Alkaline Phosphatase 82 Total Creatine Kinase 200 H Troponin I < 0.01 L C-Reactive Protein 1.0 Cancelled NT-Pro-B Natriuret Pep 77 Total Protein 6.9 Albumin 3.6 TSH 1.540 Urine Color Urine Appearance Urine pH Ur Specific [place] Urine Protein Urine Glucose (UA) Urine Ketones Urine Blood Urine Nitrite Urine Bilirubin Urine Urobilinogen Ur Leukocyte Esterase Urine RBC Urine WBC Ur Squamous Epith Cells Urine Bacteria Fine Granular Casts Urine Opiates Screen Ur Oxycodone Screen Urine Methadone Screen Ur Barbiturates Screen U Tricyclic Antidepress Ur Phencyclidine Scrn Ur Amphetamines Screen U Methamphetamines Scrn U Benzodiazepines Scrn Urine Cocaine Screen U Marijuana (THC) Screen Ur Drug Screen Comment Ethyl Alcohol < 0.01 L SARS-CoV-2 (PCR) Influenza Type A (PCR) Influenza Type B (PCR) RSV (PCR) Lab Acknowledgement POC Troponin I 0.20 H 10/22/23 10/22/23 10/22/23 16:30 16:31 18:08 WBC RBC Hgb Hct MCV MCH MCHC RDW Coeff of Ximena Plt Count Neut % (Auto) Lymph % (Auto) [place] % (Auto) Eos % (Auto) Baso % (Auto) Neut # (Auto) Lymph # (Auto) [place] # (Auto) Eos # (Auto) Baso # (Auto) Abs Immat Gran (auto) Imm/Tot Granulo (auto) Diff Slide Review D-Dimer Quant (PE/DVT) VBG pH VBG pCO2 VBG pO2 VBG HCO3 Sodium Potassium Chloride Carbon Dioxide Anion Gap BUN Creatinine Estimated Creat Clear Estimated GFR Glucose Lactate Calcium Magnesium Total Bilirubin AST ALT Alkaline Phosphatase Total Creatine Kinase Troponin I C-Reactive Protein NT-Pro-B Natriuret Pep Total Protein Albumin TSH Urine Color Yellow Urine Appearance Clear Urine pH 6.0 Ur Specific [place] 1.025 Urine Protein 3+ A Urine Glucose (UA) 2+ A Urine Ketones Negative Urine Blood 1+ A Urine Nitrite Negative Urine Bilirubin Negative Urine Urobilinogen 0.2 Ur Leukocyte Esterase Negative Urine RBC 0-2 Urine WBC 0-2 Ur Squamous Epith Cells Few Urine Bacteria None Fine Granular Casts Few A Urine Opiates Screen Negative Ur Oxycodone Screen Negative Urine Methadone Screen Negative Ur Barbiturates Screen Negative U Tricyclic Antidepress Negative Ur Phencyclidine Scrn Negative Ur Amphetamines Screen Negative U Methamphetamines Scrn Negative U Benzodiazepines Scrn Negative Urine Cocaine Screen Negative U Marijuana (THC) Screen Negative Ur Drug Screen Comment See Note Ethyl Alcohol Cancelled SARS-CoV-2 (PCR) Influenza Type A (PCR) Influenza Type B (PCR) RSV (PCR) Lab Acknowledgement Test Added POC Troponin I 10/22/23 10/22/23 10/22/23 18:47 19:18 20:05 WBC RBC Hgb Hct MCV MCH MCHC RDW Coeff of Ximena Plt Count Neut % (Auto) Lymph % (Auto) [place] % (Auto) Eos % (Auto) Baso % (Auto) Neut # (Auto) Lymph # (Auto) [place] # (Auto) Eos # (Auto) Baso # (Auto) Abs Immat Gran (auto) Imm/Tot Granulo (auto) Diff Slide Review D-Dimer Quant (PE/DVT) VBG pH VBG pCO2 VBG pO2 VBG HCO3 Sodium Potassium Chloride Carbon Dioxide Anion Gap BUN Creatinine Estimated Creat Clear Estimated GFR Glucose Lactate Calcium Magnesium Total Bilirubin AST ALT Alkaline Phosphatase Total Creatine Kinase Troponin I C-Reactive Protein NT-Pro-B Natriuret Pep Total Protein Albumin TSH Urine Color Urine Appearance Urine pH Ur Specific [place] Urine Protein Urine Glucose (UA) Urine Ketones Urine Blood Urine Nitrite Urine Bilirubin Urine Urobilinogen Ur Leukocyte Esterase Urine RBC Urine WBC Ur Squamous Epith Cells Urine Bacteria Fine Granular Casts Urine Opiates Screen Ur Oxycodone Screen Urine Methadone Screen Ur Barbiturates Screen U Tricyclic Antidepress Ur Phencyclidine Scrn Ur Amphetamines Screen U Methamphetamines Scrn U Benzodiazepines Scrn Urine Cocaine Screen U Marijuana (THC) Screen Ur Drug Screen Comment Ethyl Alcohol SARS-CoV-2 (PCR) Negative SARS-CoV-2 Influenza Type A (PCR) Negative PCR FLU A Influenza Type B (PCR) Negative PCR FLU B RSV (PCR) Negative PCR RSV Lab Acknowledgement Test Added Test Added POC Troponin I 10/23/23 06:18 WBC 8.73 RBC 4.23 Hgb 12.2 Hct 38.5 MCV 91 MCH 29 MCHC 32 RDW Coeff of Ximena 14.0 Plt Count 304 Neut % (Auto) 51.7 Lymph % (Auto) 35.1 [place] % (Auto) 8.8 Eos % (Auto) 3.4 Baso % (Auto) 0.8 Neut # (Auto) 4.51 Lymph # (Auto) 3.06 H [place] # (Auto) 0.80 Eos # (Auto) 0.30 Baso # (Auto) 0.07 Abs Immat Gran (auto) 0.02 Imm/Tot Granulo (auto) 0.2 Diff Slide Review D-Dimer Quant (PE/DVT) VBG pH 7.402 VBG pCO2 44 VBG pO2 49.5 H VBG HCO3 27 Sodium 137 Potassium 3.4 L Chloride 106 Carbon Dioxide 26 Anion Gap 5 L BUN 15 Creatinine 1.5 Estimated Creat Clear 35.09 Estimated GFR 42 Glucose 349 H Lactate Calcium 8.1 L Magnesium 2.2 Total Bilirubin AST ALT Alkaline Phosphatase Total Creatine Kinase 157 H Troponin I 0.02 C-Reactive Protein NT-Pro-B Natriuret Pep Total Protein Albumin TSH Urine Color Urine Appearance Urine pH Ur Specific [place] Urine Protein Urine Glucose (UA) Urine Ketones Urine Blood Urine Nitrite Urine Bilirubin Urine Urobilinogen Ur Leukocyte Esterase Urine RBC Urine WBC Ur Squamous Epith Cells Urine Bacteria Fine Granular Casts Urine Opiates Screen Ur Oxycodone Screen Urine Methadone Screen Ur Barbiturates Screen U Tricyclic Antidepress Ur Phencyclidine Scrn Ur Amphetamines Screen U Methamphetamines Scrn U Benzodiazepines Scrn Urine Cocaine Screen U Marijuana (THC) Screen Ur Drug Screen Comment Ethyl Alcohol SARS-CoV-2 (PCR) Influenza Type A (PCR) Influenza Type B (PCR) RSV (PCR) Lab Acknowledgement POC Troponin I
[2023-10-23] MEDS: HYDRALAZINE HCL 20 MG/ML inj 5 MG IVP (12:27)
[2023-10-23] MEDS: ONDANSETRON 2 MG/ML inj 4 MG IVP (12:30)
[2023-10-23] MEDS: FUROSEMIDE 10 MG/ML inj 40 MG IVP (12:57)
[2023-10-23] MEDS: POTASSIUM CHLORIDE 10 MEQ CAPSULE ER 40 MEQ PO (12:57)
[2023-10-23 13:04] VITALS: BP 185/108
--- NOTE | 2023-10-23 13:21 | CRLHL7_ITS ---
For Patients: As a result of the Century Cures Act, medical imaging exams and procedure reports are released immediately into your electronic medical record. You may view this report before your referring provider. If you have questions, please contact your health care provider. INDICATION: Somnolence, altered mental status and slurred speech TECHNIQUE: The carotid circulations and the vertebral arteries in the neck were examined with graf-scale ultrasound, color-flow and Doppler spectral analysis. Degrees of stenosis were determined using SRU 2002 Consensus Panel Criteria. COMPARISON: None FINDINGS: Multiple sonographic images with graf-scale, color Doppler and spectral Doppler analysis were obtained demonstrate visualized atherosclerotic plaque in the carotid arteries bilaterally. Velocities are within normal limits bilaterally. The right ICA/CCA ratio is 0.9 and the left ICA/CCA ratio is 0.9. Spectral waveforms are normal. Right vertebral artery is antegrade. Left vertebral artery is retrograde. IMPRESSION: 1. Atherosclerotic calcification without hemodynamically significant carotid stenosis bilaterally. 2. Antegrade flow within the right vertebral artery, however note is made of retrograde flow within the left vertebral artery. Dictated by Ramesh Diez MD @ 10/23/2023 3:22:01 PM (Electronically Signed)
[2023-10-23] MEDS: AMLODIPINE 5 MG TABLET PO (13:28)
[2023-10-23 15:00] VITALS: BP 171/90; PULSE 100; PULSE 101; RESP 25; RESP 30; TEMP 36.6; O2SAT 95
--- NOTE | 2023-10-23 15:16 | PC.NURSE ---
End of shift [id number]: Pt is A&O and afebrile today. VSS with exception to elevated BP 180s/100s- IVP Hydralazine 5mg given x1 dose with recheck still in the 180s/100s; is aware. Pt is SBA with GB and 2ww for ambulation and transfers. She is continent of B&B with no BM today. Pt?s garbled & slurred speech is worse today per her children in the room. Brain MRI is ordered for 163. Blood sugars have been elevated: 358 > 206 respectively; see MAR for insulin admin. PIV in right AC is SL and C/D/I, flushes well. BLL US negative for DVT?s. AM K+ 3.4; replaced with 40 mEq PO. IVP Lasix 40mg given x1 dose and BL wrapped with MONSE wraps. TELE read ST rate in the 90s-100s all day. Shallow breathing & SOB with exertion but O2 sats remained > 90%. Pt denies any pain. Reported some nausea in which PRN Zofran given @ 1230 with adequate relief. ?
--- NOTE | 2023-10-23 15:42 | REH.OT ---
OT received order for Consult. Evaluation was attempted 2X w/ pt. unarousable on both occasions. Social history was acquired from pt.'s children. Pt.'s son and daughter report that they have been providing their mom with assistance for dressing, toileting, bathing, transfers, and all IADLs for a few of months with her condition deteriorating more over the last week. Will re-attempt OT evaluation when pt. more alert.
[2023-10-23 19:00] VITALS: BP 190/106; PULSE 103; RESP 28; TEMP 36.6; O2SAT 95
[2023-10-23] MEDS: CLOPIDOGREL 75 MG TABLET 300 MG PO (19:40)
[2023-10-23] MEDS: ASPIRIN 81 MG TAB.CHEW 162 MG PO (19:40)
--- NOTE | 2023-10-23 19:58 | P.DS_ITS ---
DS: Providers Provider Date Seen: 10/23/23 Date of admission: 10/22/23 20:27 Primary care physician: Radha Avelar MD Admitting Clinician: Charlotte Davis MD Consults: 10/22/23 20:01 Consult to Nutrition [CONS] Routine Comment: Reason for consult:: Diabetic Teaching Consult to Physical Therapy [CONS] Routine Comment: Reason(s) for PT Consult:: Evaluate and Treat Any Restrictions?:: No Restrictions Consult to Toucher Up [CONS] Routine Comment: Reason for Consult:: Discharge Planning Needs 10/22/23 20:03 Consult to Occupational Therapy [CONS] Routine Comment: Reason(s) for OT Consult:: Evaluate and Treat Any Restrictions?:: No Restrictions 10/23/23 00:14 Consult to Occupational Therapy [CONS] Routine Comment: Reason(s) for OT Consult:: Difficulty Managing ADLs Any Restrictions?:: No Restrictions Consult to Physical Therapy [CONS] Routine Comment: Reason(s) for PT Consult:: Recent Falls Any Restrictions?:: No Restrictions Attending Physician on discharge: Kevin Zuluaga Date of Discharge: 10/23/23 DS: Diagnosis Discharge Diagnosis (1) Acute ischemic multifocal posterior circulation stroke: Status: Acute Problem details: -etiology not yet determined: thromboembolic vs. embolic plaque, doubt hypercoagulable state or vasculitis. -MRI 10/23/2023:1. 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 Largest area of infarction involves the right cerebellar hemisphere. 2. No evidence of acute or chronic intracranial hemorrhage. -Carotid u/s 10/23/2023:1. Atherosclerotic calcification without hemodynamically significant carotid stenosis bilaterally. 2. Antegrade flow within the right vertebral artery, however note is made of retrograde flow within the left vertebral artery. -10/23/2023: started Clopidogrel 300 mg po x 1 dose, then 75 mg po qd, and aspirin 162 mg po x 1 dose, then 81 mg po qd; and, increased atorvastatin dose from 40 mg po qd to 80 mg po qd. -spoke with Stroke Neurologist, Dr. Shandra Harper, who recommended transfer to [facility]. -Spoke with Hospitalist, Dr. Gerber, who accepted patient to [place]. (2) Acute ischemic multifocal anterior circulation stroke: Status: Acute Problem details: -etiology not yet determined: thromboembolic vs. embolic plaque, doubt hypercoagulable state or vasculitis. -MRI 10/23/2023:1. 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 Largest area of infarction involves the right cerebellar hemisphere. 2. No evidence of acute or chronic intracranial hemorrhage. -Carotid u/s 10/23/2023:1. Atherosclerotic calcification without hemodynamically significant carotid stenosis bilaterally. 2. Antegrade flow within the right vertebral artery, however note is made of retrograde flow within the left vertebral artery. -10/23/2023: started Clopidogrel 300 mg po x 1 dose, then 75 mg po qd, and aspirin 162 mg po x 1 dose, then 81 mg po qd; and, increased atorvastatin dose from 40 mg po qd to 80 mg po qd. -spoke with Stroke Neurologist, Dr. Shandra Harper, who recommended transfer to [facility]. -Spoke with Hospitalist, Dr. Gerber, who accepted patient to [place]. (3) Altered mental status: Status: Acute Problem details: - fairly clear on admission 10/21, does have some psychomotor slowing and speech slurring - CT head shows no skull fracture or acute intracranial abnormality, few scattered small chronic infarcts noted. CT C-spine without acute findings. - no acute infectious process yet found, TSH 1.54, UA rather unremarkable, urine drug screen negative, blood alcohol unremarkable, triple swab negative - denies alcohol use, vapes on occasion - poorly controlled diabetes, poor blood pressure management, will need outpatient formal sleep study, obesity, knee pain/deconditioning - therapies ordered to assist in evaluation -10/22 remains oriented but somnolent, easily falling asleep during interview. Continues with slurred speech. No difficulty with word finding. Family reports similar episode two other times in past year, thought initially to be related to hypoglycemia, but on evaluation, sugars were actually elevated. Dyspneic on exertion, tachypneic with extended recovery time. MRI 10/23/2023 afternoon for further evaluation. Consider Neurology consult following results. Could obtain labs for metals but these would be sent out (4) Falls: Status: Acute Problem details: - likely in great measure due to cerebellar strokes an associated ataxia - no true syncope per history, potentially related to daytime somnolence 2/2 HENRY, h/o left knee pain, holds onto zuniga for support - chronic, recurrent, increasing over past year per family. ED visit 09/20/23 fall with L knee pain, xray without acute abnormalities. Addressed with PCP 09/26/23 - d-dimer elevated, PE study negative, BLE US neg for DVT - MRI this afternoon. ECHO ordered - follow up with PCP for sleep study (5) Rhabdomyolysis: Status: Acute Problem details: - mild, CK of 200 on 10/21, 157 on recheck - low dose IVFs (6) Acute kidney injury: Status: Acute Problem details: - creatinine 1.5, outpatient baseline 1-1.1 - hold Metformin and Lisinopril - continue gentle IV hydration, recheck with morning labs (7) Weakness: Status: Acute Problem details: - likely combination of Obesity Hypoventilation Syndrome, Obstructive Sleep Apnea, deconditioning, DM2 - per family, chronic, worsening - therapies ordered (8) Essential hypertension: Status: Acute Problem details: - elevated BPs, typically on Lisinopril as an outpatient; holding for BRADEN - chart also notes history of Chlorthalidone/Spironolactone/Amlodipine, not currently taking - add back low dose Amlodipine, consider adding back in Chlorthalidone/K when renal function improves - BP during office visit 09/26/23 was 182/107 - close outpatient follow up for BP management (9) Diabetes mellitus, type 2: Status: Acute Problem details: - poorly controlled, insulin dependent, last A1C 12.4 - usual home Lantus dose recently increased to 38 units. Will start with 20 units until improved mental status and adequate oral intake, adjusting as appropriate - hold home Lispro 20 units t.i.d. with meals, using ISS for now, adjusting as necessary - hold metformin - glucose checks ACHS (10) Hypokalemia: Status: Acute Problem details: - replace and follow, 3.4 this morning, magnesium 2.2 (11) Edema: Status: Chronic Problem details: - iatrogenic vs cardiac vs hepatic vs dependent. Chronic - LE US negative for DVTs - last TTE in 2021: Final Impressions: 1. Technically limited exam. 2. Normal LV size, moderately increased wall thickness, normal global systolic function with an estimated EF of 60 - 65%. 3. Right ventricular cavity size is not well visualized, global systolic RV function is not well visualized. 4. The aortic valve is sclerotic, no stenosis and trivial regurgitation. 5. The mitral valve is sclerotic, trace mitral regurgitation. 6. No pericardial effusion. - will give one dose lasix and monitor. LE compression wraps - repeat ECHO (12) Tachypnea: Status: Acute Problem details: - D-dimer elevated, CTA PE study negative for PEs, moderate biventricular cardiomegaly present with left ventricular hypertrophy - BLE ultrasound negative for DVTs (13) Dyspnea on exertion: Status: Acute Problem details: - D-dimer elevated, CTA PE study negative for PEs, moderate biventricular cardiomegaly present with left ventricular hypertrophy - echo ordered - 1 dose Lasix ordered for edema, will give oral potassium to supplement, currently 3.4 (14) Morbid obesity with BMI of 50.0-59.9, adult: Status: Acute (15) Cardiomegaly: Status: Acute Problem details: -etiology not yet determined, and, increases possibility of thromboembolic phenomenon. -CTA chest 10/22/2023: Moderate biventricular cardiomegaly is present with left ventricular hypertrophy. DS: Summary Hospital Course Hospital Course: Admission history of present illness: ?Cindy Alonso is a 53 year old female who presented to the ER by EMS today for concerns of confusion. Son is present during H&P and assists with history. They have noticed increasing confusion and weakness, approximately over the past week. She has also had an increase in falls over the past few weeks, including a few where she hit her head. No LOC. No concerning preceding symptoms accompany her falls. Most of the falls happen after she's fallen asleep in a seated position. No known history of HENRY, has never had a sleep study. + snoring. ?No chest pain, no dyspnea. Has had an intermittent cough and wheeze over the past week, no known history of asthma. No hemoptysis or chest pain. Mildly decreased po intake. ?ER Course and Findings: - K of 3.3 - Creatinine of 1.5, GFR 42 (outpatient baseline: Cr 1.0, GFR 60s), CK 200 - negative troponin x2, no concerning EKG findings - negative CT C-Spine, head CT reveals scattered small chronic infarcts, no acute abnormalities? In the relatively short period of time patient was in hospital her level of al tered consciousness and confusion stabilized and even improved. Her ataxia did not improve. Eventually we obtained the MRI of the brain which demonstrated acute to subacute infarctions involving multiple vascular territories in the right and left side of both cerebral hemispheres in the anterior posterior circulation. I called and spoke with stroke neurologist, Dr. Shandra Harper, who recommended shayan romero to [facility]. I spoke with hospitalist, Dr. Gerber, who accepted patient in transfer. I spoke with patient and isrrael , answered their questions to their satisfaction, and they accept plan for transfer and additional evaluation and treatment at [place]. Time Spent with Patient Time attestation: Total time spent providing and/or coordinating discharge services: Exam Narrative: Exam Narrative: General: Sitting up in a chair, tachypneic, oriented, somnolent HEENT: Normocephalic, atraumatic, sclera white, EOMI, oral mucosa moist Cardiovascular: Tachycardic, +2 pitting edema bilateral lower extremities Pulmonary: CTA bilaterally without rhonchi, rales, expiratory wheezes. Tachypneic Abdominal: Soft, nondistended, NTTP Neurological: Answering questions appropriately, somnolent, generalized weakness, cranial nerves intact aside from minor facial asymmetry, no focal findings . Extremities: AROMI. Neurovascularly intact Skin: Warm, dry. Const: Vital Signs, click to edit/add: Vital Signs - 24 hr 10/22/23 20:39 10/22/23 20:39 10/22/23 22:00 Temperature 97.6 F Pulse Rate Pulse Rate [Pulse Oximeter] Respiratory Rate 28 H 28 H 32 H Blood Pressure [Le ft Arm] Blood Pressure [Ri ght Arm] 159/86 H Pulse Oximetry 97 97 Oxygen Delivery Me thod Room Air Room Air 10/22/23 22:00 10/22/23 23:00 10/23/23 04:00 Temperature 99.1 F Pulse Rate 103 H Pulse Rate [Pulse Oximeter] 106 H Respiratory Rate 32 H 24 Blood Pressure [Le ft Arm] Blood Pressure [Ri ght Arm] 147/75 H Pulse Oximetry 97 97 Oxygen Delivery Me thod Room Air Room Air 10/23/23 07:00 10/23/23 07:00 10/23/23 07:00 Temperature Pulse Rate 106 H Pulse Rate [Pulse Oximeter] 106 H Respiratory Rate 28 H 28 H Blood Pressure [Le ft Arm] Blood Pressure [Ri ght Arm] Pulse Oximetry 95 Oxygen Delivery Me thod Room Air 10/23/23 07:00 10/23/23 11:00 10/23/23 13:04 Temperature 98.4 F 98 F Pulse Rate Pulse Rate [Pulse Oximeter] 109 H 99 Respiratory Rate 28 H 30 H Blood Pressure [Le ft Arm] 168/100 H 182/109 H Blood Pressure [Ri ght Arm] 195/113 H 185/108 H Pulse Oximetry 95 91 Oxygen Delivery Me thod Room Air Room Air 10/23/23 15:00 10/23/23 15:00 10/23/23 15:00 Temperature Pulse Rate 100 Pulse Rate [Pulse Oximeter] 101 H Respiratory Rate 25 H 30 H Blood Pressure [Le ft Arm] Blood Pressure [Ri ght Arm] Pulse Oximetry 95 Oxygen Delivery Ny thod Room Air 10/23/23 15:00 10/23/23 19:00 Temperature 97.9 F 97.8 F Pulse Rate Pulse Rate [Pulse Oximeter] 101 H 103 H Respiratory Rate 25 H 28 H Blood Pressure [Le ft Arm] 190/106 H Blood Pressure [Ri ght Arm] 171/90 H Pulse Oximetry 95 95 Oxygen Delivery Ny thod Room Air Room Air DS: Data Data Completed and Pending Labs on day of discharge: Labs from last 24 hours 10/23/23 10/22/23 10/22/23 06:18 20:05 18:47 WBC 8.73 RBC 4.23 Hgb 12.2 Hct 38.5 MCV 91 MCH 29 MCHC 32 RDW Coeff of Ximena 14.0 Plt Count 304 Neut % (Auto) 51.7 Lymph % (Auto) 35.1 [place] % (Auto) 8.8 Eos % (Auto) 3.4 Baso % (Auto) 0.8 Neut # (Auto) 4.51 Lymph # (Auto) 3.06 H [place] # (Auto) 0.80 Eos # (Auto) 0.30 Baso # (Auto) 0.07 Abs Immat Gran (auto) 0.02 Imm/Tot Granulo (auto) 0.2 D-Dimer Quant (PE/DVT) VBG pH 7.402 VBG pCO2 44 VBG pO2 49.5 H VBG HCO3 27 Sodium 137 Potassium 3.4 L Chloride 106 Carbon Dioxide 26 Anion Gap 5 L BUN 15 Creatinine 1.5 Estimated Creat Clear 35.09 Estimated GFR 42 Glucose 349 H Calcium 8.1 L Magnesium 2.2 Total Creatine Kinase 157 H Troponin I 0.02 TSH SARS-CoV-2 (PCR) Negative SARS-CoV-2 Influenza Type A (PCR) Negative PCR FLU A Influenza Type B (PCR) Negative PCR FLU B RSV (PCR) Negative PCR RSV Lab Acknowledgement Test Added 10/22/23 16:30 WBC RBC Hgb Hct MCV MCH MCHC RDW Coeff of Ximena Plt Count Neut % (Auto) Lymph % (Auto) [place] % (Auto) Eos % (Auto) Baso % (Auto) Neut # (Auto) Lymph # (Auto) [place] # (Auto) Eos # (Auto) Baso # (Auto) Abs Immat Gran (auto) Imm/Tot Granulo (auto) D-Dimer Quant (PE/DVT) 0.81 H VBG pH VBG pCO2 VBG pO2 VBG HCO3 Sodium Potassium Chloride Carbon Dioxide Anion Gap BUN Creatinine Estimated Creat Clear Estimated GFR Glucose Calcium Magnesium Total Creatine Kinase Troponin I TSH 1.540 SARS-CoV-2 (PCR) Influenza Type A (PCR) Influenza Type B (PCR) RSV (PCR) Lab Acknowledgement Imaging CT scan - cervical spine: Radiologist's impression: 1. No CT evidence of acute fracture or traumatic malalignment in the cervical spine. Chest x-ray: Radiologist's impression: Low lung volumes. No acute or significant findings. CT scan - head: Radiologist's impression: 1. No skull fracture or acute intracranial abnormality identified. 2. A few scattered small chronic infarcts as detailed. CTA - chest: Radiologist's impression: 1. No CT evidence of central pulmonary embolism seen. The 3rd and higher order pulmonary vessels cannot be evaluated due to patient motion. 2. Moderate biventricular cardiomegaly is present with left ventricular hypertrophy. MR Brain: Radiologist's impression: FINDINGS: Multiple foci of diffusion restriction within both cerebral hemispheres, involving the right frontal lobe, left anterior cingulate gyrus, bilateral lovell radiata/periventricular white matter, the right-sided basal ganglia including the internal capsule posterior limb, the bilateral peritrigonal white matter, the bilateral occipital lobes and extensively within the right lateral cerebellar hemisphere. Variable accompanying FLAIR hyperintensity. These are consistent with acute to subacute infarcts involving multiple vascular territories. There are additionally some areas of chronic infarction involving the basal ganglia. No evidence of acute or chronic intracranial blood products. No mass effect or herniation. No hydrocephalus or extra-axial collections. The pituitary gland, parasellar structures and optic chiasm are normal. All the major intracranial vascular structures demonstrate normal flow-related signal. The orbital contents are normal. No calvarial or skull base marrow replacing process. No obstructive sinus disease. No extracranial soft tissue findings. IMPRESSION: 1. 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 Largest area of infarction involves the right cerebellar hemisphere. 2. No evidence of acute or chronic intracranial hemorrhage. Venous US: Radiologist's impression: Normal bilateral lower extremity venous ultrasound, no sign of deep venous thrombosis. Carotid Doppler: Radiologist's impression: 1. Atherosclerotic calcification without hemodynamically significant carotid stenosis bilaterally. 2. Antegrade flow within the right vertebral artery, however note is made of retrograde flow within the left vertebral artery. Discharge Plan Discharge Disposition: [facility] Date of Admission: 10/22/23 20:27 Attending Provider on Discharge: Kevin Zuluaga Primary Care Provider: Radha Avelar I Condition: Guarded Discharge Orders: Transfer of Care to Other Hospital (ORDER); Ordered 10/23/23 Ordered By: Kevin Zuluaga Oxygen: No Urinary Catheter: No Services not available here: Stroke neurology, cardiology, pulmonary, physical medicine and rehabilitation
[2023-10-23] MEDS: ENOXAPARIN 40 MG/0.4 ML INJ SUBCUT (21:47)
[2023-10-23] MEDS: ATORVASTATIN CALCIUM 40 MG TABLET 80 MG PO (21:48)
--- NOTE | 2023-10-24 00:03 | PC.NURSE ---
Pt went down for an MRI and results reviewed multiple infarcts. in to discuss POC with Pt and her . Pt was accepted to [facility], nurse to nurse report was given to mis. Pt slightly hypertensive, BP systolic 190s. Denies pain. Ongoing display of slurred speech. No issues swallowing. Moves well with the assist of 1 to bathroom and is occasionally incontinent. Pt was transferred to [facility] @ 2315 by [facility]. Pts mother was allowed to ride in the ambulance to [facility] per [facility] crew.
== END 2023-10-23 23:15 | disposition short-term general hospital (02) | DRG 45 ==
LOC: ED 15:36 → MEDSURG 18:50
PROVIDERS: Admitting Provider Family Medicine; Emergency Provider Family Medicine; PCP Family Medicine; Visit Provider Family Medicine
DX: I63.441 Cerebral infarction due to embolism of right cerebellar artery (principal); R47.81 Slurred speech; R41.82 Altered mental status, unspecified; R53.1 Weakness; R27.0 Ataxia, unspecified; R41.843 Psychomotor deficit; N17.9 Acute kidney failure, unspecified; E87.6 Hypokalemia; Z68.43 Body mass index [BMI] 50.0-59.9, adult; E66.01 Morbid (severe) obesity due to excess calories; E11.319 Type 2 diabetes mellitus with unspecified diabetic retinopathy without macular edema; E11.65 Type 2 diabetes mellitus with hyperglycemia; Z79.4 Long term (current) use of insulin; M62.82 Rhabdomyolysis; I11.9 Hypertensive heart disease without heart failure; Z91.81 History of falling; Z79.84 Long term (current) use of oral hypoglycemic drugs; R60.9 Edema, unspecified; R06.82 Tachypnea, not elsewhere classified; E78.5 Hyperlipidemia, unspecified
CPT/HCPCS: 36415; 70450; 70551; 71045; 71275; 72125; 80048; 80053; 80061; 80306; 81001; 82077; 82550; 82803; 82962; 83605; 83735; 83880; 84443; 84484; 85025; 85027; 85379; 85651; 86140; 86592; 87631; 93005; 93306; 93880; 93970; 97162; 97530; 99284; 99285; A9270; J0360; J1650; J1940; J2405; Q9967

== ENCOUNTER 2024-05-02 11:13 | Outpatient (CLI) | payer MEDICAID, SELFPAY | END 2024-05-02 11:14 | disposition home or self-care (01) | PROVIDERS: PCP Family Medicine; Visit Provider Internal Medicine | DX: R53.1 Weakness (principal) | CPT/HCPCS: A0998 ==

== ENCOUNTER 2024-05-15 14:43 | Outpatient (CLI) | payer MEDICAID, SELFPAY | END 2024-05-15 14:44 | disposition home or self-care (01) | LOC: AMB 05-25 01:18 | PROVIDERS: PCP Family Medicine; Visit Provider Family Medicine | DX: H53.8 Other visual disturbances (principal) | CPT/HCPCS: A0425; A0427 ==

== ENCOUNTER 2024-05-15 15:14 | Emergency (ER) | payer MEDICAID, SELFPAY ==
[2024-05-15] VITALS (40 sets, daily range): BP systolic 125–161; BP diastolic 61–97; PULSE 68–82; RESP 16–19; TEMP 36.3; O2SAT 96–100; BMI 46.6
--- NOTE | 2024-05-15 15:19 | CRLHL7_ITS ---
For Patients: As a result of the Century Cures Act, medical imaging exams and procedure reports are released immediately into your electronic medical record. You may view this report before your referring provider. If you have questions, please contact your health care provider. DATE: 05/16/2024 CLINICAL HISTORY: Patient with focal neurological deficits. TECHNIQUE: Standard helical CT image acquisition of the neck up to the skull base after bolus intravenous contrast enhancement. 2D and 3D MIP images for post-processing were performed and interpreted on an independent workstation and 3D images were permanently archived. COMPARISON: CT same day. FINDINGS: The origins of the great vessels from the aortic arch are patent. The origin of the right vertebral artery is patent. The origin of the left vertebral artery is patent. The common carotid arteries are patent. There is no stenosis at the origin of the right internal carotid artery. There is no stenosis at the origin of the left internal carotid artery. The rest of the cervical segments of the internal carotid arteries are patent up to the skull base. The left vertebral artery is dominant. The cervical segments of the vertebral arteries are patent up to the skull base. The visualized lung apices are unremarkable. The thyroid gland is unremarkable. The soft tissues of the neck are unremarkable. There are degenerative changes in the cervical spine. IMPRESSION: Patent cervical vasculature. Please note that all CT scans at this facility use dose modulation, iterative reconstruction, and/or weight-based dosing when appropriate to reduce radiation dose to as low as reasonably achievable. Dictated by Maco Woody MD @ 05/16/2024 9:55:01 AM (Electronically Signed)
--- NOTE | 2024-05-15 15:19 | CRLHL7_ITS ---
For Patients: As a result of the Cures Act, medical imaging exams and procedure reports are released immediately into your electronic medical record. You may view this report before your referring provider. If you have questions, please contact your health care provider. INDICATION: RT VISUAL LOSS. NO NEURO RAD AT THIS TIME. TECHNIQUE: Head CT without contrast. COMPARISON: December 20, 2022. FINDINGS: CSF spaces: Within normal limits for age. Brain parenchyma and extra-axial spaces: There are nonspecific low attenuation white matter changes consistent with chronic microvascular disease. Bilateral basal ganglia lacunar type infarcts, few are new compared to the prior exam from December 20, 2022. In addition, there also infarcts within the right and left cerebellar hemispheres, again appear to be new compared to the prior exam December 20, 2022. Mild diffuse atrophy and resultant mild dilation of the ventricles and CSF spaces including the bilateral sylvian fissures. This is also increased compared to prior. No sign of mass, hemorrhage, or midline shift. Skull base and calvarium: Mild thickening in the left maxillary sinus. Otherwise, paranasal sinuses and mastoid air cells are clear. The visualized orbits are grossly unremarkable. No skull fractures. IMPRESSION: 1. no acute intracranial process identified. No intracranial hemorrhage identified. 2. Bilateral cerebellar hemisphere old infarcts as well as multiple old lacunar type infarcts in the bilateral basal ganglia the predominant portion of which are new compared to December 20, 2022. Please note that all CT scans at this facility use dose modulation, iterative reconstruction, and/or weight-based dosing when appropriate to reduce radiation dose to as low as reasonably achievable. Dictated by Caleb Tineo MD @ 05/15/2024 3:35:59 PM (Electronically Signed)
--- NOTE | 2024-05-15 15:19 | CRLHL7_ITS ---
For Patients: As a result of the Century Cures Act, medical imaging exams and procedure reports are released immediately into your electronic medical record. You may view this report before your referring provider. If you have questions, please contact your health care provider. DATE: 05/15/2024 CLINICAL HISTORY: Patient with focal neurological deficits. TECHNIQUE: Standard helical CT image acquisition through the intracranial circulation following intravenous administration of contrast material with bolus tracking. 2D and 3D MIP images for post-processing were performed and interpreted on an independent workstation and 3D images were permanently archived. COMPARISON: CT same day. FINDINGS: There is no cerebral aneurysm or large vessel occlusion. There is intracranial atherosclerosis with moderate narrowing in the right posterior cerebral artery. The right internal carotid artery is normal. The right middle cerebral artery and its branches are normal. The right anterior cerebral artery and its branches are normal. The left internal carotid artery is normal. The left middle cerebral artery and its branches are normal. The left anterior cerebral artery and its branches are normal. The anterior communicating artery is well visualized and appears normal. The right vertebral artery and PICA are normal. The left vertebral artery and PICA are normal. The left vertebral artery is dominant. The basilar artery is patent and appears normal. The left posterior cerebral artery is normal. IMPRESSION: 1. No cerebral aneurysm or large vessel occlusion. 2. Intracranial atherosclerosis with moderate narrowing in the right posterior cerebral artery. Please note that all CT scans at this facility use dose modulation, iterative reconstruction, and/or weight-based dosing when appropriate to reduce radiation dose to as low as reasonably achievable. Dictated by Maco Woody MD @ 05/16/2024 9:57:01 AM (Electronically Signed)
--- NOTE | 2024-05-15 15:22 | ED.GENADULT ---
HPI - General Adult General Time Seen by Provider: 15:22 <Joy Whitehead MD - Last Filed: 05/15/24 20:20> Date Seen: 05/15/24 <Joy Whitehead MD - Last Filed: 05/15/24 20:20> Chief complaint: Neuro Symptoms/Altered Deficit <Joy Whitehead MD - Last Filed: 05/15/24 20:20> Stated complaint: HBP, vision blurred <Joy Whitehead MD - Last Filed: 05/15/24 20:20> Time Seen by Provider: 05/15/24 15:20 <Joy Whitehead MD - Last Filed: 05/15/24 20:20> Source: patient, family and EMS <Joy Whitehead MD - Last Filed: 05/15/24 20:20> Mode of arrival: EMS <Joy Whitehead MD - Last Filed: 05/15/24 20:20> Limitations: no limitations <Joy Whitehead MD - Last Filed: 05/15/24 20:20> History of Present Illness HPI narrative: This 54-year-old female is coming in with EMS on a red stroke code. She is met in the hallway after ambulance arrival in taken to CT. She had elevated blood pressure at home, complained of right visual loss. Symptoms started sometime after 1:30 p.m.. EMS got her sugar to be just over 200. She has an IV in the left antecubital fossa. She has a history of stroke, is anticoagulated with Eliquis. She is complaining of right visual loss. There is no known trauma, no headache. Her chart notes hypertension, hyperlipidemia, poorly controlled diabetes. She also has morbid obesity, acute ischemic multifocal posterior stroke noted in her problems. In October of 2023, she was hospitalized here and was found to have an acute ischemic multifocal posterior circulation stroke. Etiology at that time was not determined, thromboembolic versus embolic plaque. The MRI showed acute to subacute infarcts involving the supratentorial/infratentorial brain, likely embolic in etiology given the multiple vascular territories. Patient's carotid ultrasound showed atherosclerotic calcification without hemodynamic compromise seen carotid stenosis bilaterally. She was started on Plavix 300 mg 1 dose on 10/22 and then 75 mg daily, aspirin. Her atorvastatin was increased from 40-80 while here. She did get transferred to [facility]. <Joy Whitehead MD - Last Filed: 05/15/24 20:20> Related Data Home medications: Home Medications ?Medication ?Instructions ?Recorded ?Confirmed brimonidine 0.2 % eye drops 1 drp ophthalmic (eye) DAILY 09/20/23 05/15/24 insulin glargine 100 unit/mL (3 38 unit subcut HS 09/20/23 05/15/24 mL) subcutaneous pen (Lantus Solostar U-100 Insulin) insulin lispro 100 unit/mL 20 unit subcut TIDWM 09/20/23 10/23/23 subcutaneous pen (Humalog KwikPen (U-100) Insulin) metformin 1,000 mg tablet 1,000 mg PO BID 10/22/23 10/22/23 lisinopril 40 mg tablet 40 mg PO DAILY 10/23/23 10/23/23 amlodipine 5 mg tablet mg DAILY 05/15/24 apixaban 5 mg tablet (Eliquis) mg 05/15/24 atorvastatin 80 mg tablet mg DAILY 05/15/24 blood sugar diagnostic (Accu-Chek 05/15/24 05/15/24 Guide test strips) flash glucose sensor (FreeStyle 05/15/24 05/15/24 Alex 2 Sensor kit) fluoxetine 40 mg capsule mg DAILY 05/15/24 lancets (Accu-Chek Softclix 05/15/24 05/15/24 Lancets) losartan 100 mg tablet mg DAILY 05/15/24 losartan 25 mg tablet mg DAILY 05/15/24 metoprolol tartrate 25 mg tablet mg 05/15/24 omeprazole 20 mg capsule,delayed mg 05/15/24 release sennosides 8.6 mg tablet (senna) mg DAILY 05/15/24 Previous Rx's ?Medication ?Instructions ?Recorded Test Strips #100 ea 12/20/22 blood-glucose meter #1 ea 12/20/22 <Joy Whitehead MD - Last Filed: 05/15/24 20:20> Allergies/adverse reactions: Allergies Allergy/AdvReac Type Severity Reaction Status Date / Time No Known Drug Allergies Allergy Verified 05/15/24 17:17 <Joy Whitehead MD - Last Filed: 05/15/24 20:20> Review of Systems Status of ROS: Reports: 6 or more systems reviewed and unremarkable except as noted in History and below <Joy Whitehead MD - Last Filed: 05/15/24 20:20> [facility] Medical History: Medical History BMI 40.0-44.9, adult ?Z68.41 - Body mass index [BMI] 40.0-44.9, adult (ICD-10) Anxiety ?F41.9 - Anxiety disorder, unspecified (ICD-10) Diabetic retinopathy ?E11.319 - Type 2 diabetes mellitus with unspecified diabetic retinopathy without macular edema (ICD-10) Hyperlipidemia ?E78.5 - Hyperlipidemia, unspecified (ICD-10) Essential hypertension ?I10 - Essential (primary) hypertension (ICD-10) Diabetes mellitus, type 2 ?E11.9 - Type 2 diabetes mellitus without complications (ICD-10) <Joy Whitehead MD - Last Filed: 05/15/24 20:20> Surgical History: Surgical History History of delivery ?Z98.891 - History of uterine scar from previous surgery (ICD-10) Hx of colonoscopy ?Z98.890 - Other specified postprocedural states (ICD-10) <Joy Whitehead MD - Last Filed: 05/15/24 20:20> Social History: Social History Narrative: Cindy is a nonsmoker, no ETOH use. Son Jones would be medical decision maker if needed. She requests DNR/DNI status. What is your current living situation?: I presently have a place to live Problems where you live: no known problems Problems where you live details: NONE In the past 12 months, utilities in danger of being shut off: no In past 12 months, lack of transportation kept you from medical appts, meetings, work, or getting things needed for daily living: no In the past 12 mos, have been you worried that your food would run out before you had money to buy more?: never true In the past 12 mos, the food you bought just didn't last and you didn't have money to buy more?: never true Highest level of school completed/degree received: some college, no degree Smoking Status: Former smoker How often do you have a drink containing alcohol: never How often do you have six or more drinks on one occasion: Never AUDIT-C Alcohol total score: 0 Non-prescribed substance use: denies use Caffeine: Yes (2 POP/DAY) How often does anyone, including family, friends and others, physically hurt you: never How often does anyone, including family, friends and others, insult or talk down to you: never How often does anyone, including family, friends and others, threaten you with harm: never How often does anyone, including family, friends and others, scream or curse at you: never service: No <Joy Whitehead MD - Last Filed: 05/15/24 20:20> Exam Const: Vital Signs, click to edit/add: Vital Signs - 24 hr 05/15/24 15:20 05/15/24 15:23 05/15/24 15:33 Temperature 97.3 F L Pulse Rate 76 Pulse Rate [Right Pulse Oximeter] 76 Respiratory Rate 18 18 Blood Pressure 153/83 H Blood Pressure [Le ft Upper Arm] 157/95 H Pulse Oximetry 100 100 100 Oxygen Delivery Me thod Nasal Cannula Room Air Oxygen Flow Rate 4 05/15/24 15:40 05/15/24 15:42 05/15/24 15:51 Temperature Pulse Rate 74 Pulse Rate [Right Pulse Oximeter] Respiratory Rate 18 Blood Pressure 154/90 H Blood Pressure [Le ft Upper Arm] Pulse Oximetry 100 100 98 Oxygen Delivery Me thod Room Air Oxygen Flow Rate 05/15/24 15:52 05/15/24 16:03 05/15/24 16:14 Temperature Pulse Rate 75 75 Pulse Rate [Right Pulse Oximeter] Respiratory Rate 18 18 Blood Pressure 156/82 H 156/94 H Blood Pressure [Le ft Upper Arm] Pulse Oximetry 99 97 96 Oxygen Delivery Me thod Room Air Room Air Oxygen Flow Rate 05/15/24 16:16 05/15/24 16:20 05/15/24 16:32 Temperature Pulse Rate 76 74 Pulse Rate [Right Pulse Oximeter] Respiratory Rate 19 18 Blood Pressure 125/94 H 142/93 H Blood Pressure [Le ft Upper Arm] Pulse Oximetry 97 98 96 Oxygen Delivery Me od Room Air Room Air Oxygen Flow Rate 05/15/24 16:40 05/15/24 16:47 05/15/24 17:00 Temperature Pulse Rate 75 Pulse Rate [Right Pulse Oximeter] Respiratory Rate Blood Pressure 127/94 H Blood Pressure [Le ft Upper Arm] Pulse Oximetry 99 99 Oxygen Delivery Me od Oxygen Flow Rate 05/15/24 17:40 05/15/24 17:41 05/15/24 17:44 Temperature 97.3 F L Pulse Rate 73 75 73 Pulse Rate [Right Pulse Oximeter] Respiratory Rate 18 18 Blood Pressure 141/88 H 148/90 H Blood Pressure [Le ft Upper Arm] Pulse Oximetry 98 97 98 [facility] O[facility] Flow Rate 05/15/24 17:47 05/15/24 17:50 05/15/24 18:03 Temperature Pulse Rate 72 73 Pulse Rate [Right Pulse Oximeter] Respiratory Rate 18 18 Blood Pressure 161/90 H 139/68 Blood Pressure [Le ft Upper Arm] Pulse Oximetry 98 99 99 Oxygen Delivery Me [facility] Room Air Room Air Oxygen Flow Rate 05/15/24 18:32 05/15/24 18:40 05/15/24 18:50 Temperature Pulse Rate 72 Pulse Rate [Right Pulse Oximeter] Respiratory Rate 16 Blood Pressure 158/90 H Blood Pressure [Le ft Upper Arm] Pulse Oximetry 99 97 98 Oxygen Delivery Me od Room Air Oxygen Flow Rate 05/15/24 19:02 05/15/24 19:10 05/15/24 19:10 Temperature 97.3 F L Pulse Rate 75 Pulse Rate [Right Pulse Oximeter] Respiratory Rate 18 Blood Pressure 146/97 H Blood Pressure [Le ft Upper Arm] Pulse Oximetry 99 99 Oxygen Delivery Me od Room Air Oxygen Flow Rate 05/15/24 19:34 05/15/24 19:40 05/15/24 19:50 Temperature Pulse Rate 78 Pulse Rate [Right Pulse Oximeter] Respiratory Rate 18 Blood Pressure 148/95 H Blood Pressure [Le ft Upper Arm] Pulse Oximetry 98 99 96 Oxygen Delivery Me thod Room Air Oxygen Flow Rate 05/15/24 20:02 05/15/24 20:10 05/15/24 20:15 Temperature Pulse Rate 76 72 Pulse Rate [Right Pulse Oximeter] Respiratory Rate 16 Blood Pressure 150/89 H Blood Pressure [Le ft Upper Arm] Pulse Oximetry 98 98 98 Oxygen Delivery Me thod Oxygen Flow Rate 05/15/24 20:20 05/15/24 20:31 05/15/24 20:32 Temperature Pulse Rate 82 Pulse Rate [Right Pulse Oximeter] Respiratory Rate 18 Blood Pressure 160/85 H Blood Pressure [Le ft Upper Arm] Pulse Oximetry 99 98 Oxygen Delivery Me thod Oxygen Flow Rate 05/15/24 23:39 05/15/24 23:40 05/15/24 23:41 Temperature Pulse Rate 70 68 Pulse Rate [Right Pulse Oximeter] Respiratory Rate 16 18 Blood Pressure 131/67 136/61 Blood Pressure [Le ft Upper Arm] Pulse Oximetry 98 98 97 Oxygen Delivery Me thod Oxygen Flow Rate 05/15/24 23:45 05/15/24 23:50 05/16/24 00:00 Temperature Pulse Rate 72 68 Pulse Rate [Right Pulse Oximeter] Respiratory Rate Blood Pressure Blood Pressure [Le ft Upper Arm] Pulse Oximetry 97 99 97 Oxygen Delivery Me thod Oxygen Flow Rate 05/16/24 00:03 05/16/24 00:10 05/16/24 00:14 Temperature Pulse Rate 68 68 Pulse Rate [Right Pulse Oximeter] Respiratory Rate Blood Pressure 134/60 159/77 H Blood Pressure [Le ft Upper Arm] Pulse Oximetry 98 98 98 Oxygen Delivery Me thod Oxygen Flow Rate 05/16/24 00:15 05/16/24 00:20 05/16/24 00:30 Temperature Pulse Rate 68 70 Pulse Rate [Right Pulse Oximeter] Respiratory Rate Blood Pressure Blood Pressure [Le ft Upper Arm] Pulse Oximetry 97 99 99 Oxygen Delivery Me thod Oxygen Flow Rate 05/16/24 00:40 05/16/24 00:45 05/16/24 00:50 Temperature Pulse Rate 69 Pulse Rate [Right Pulse Oximeter] Respiratory Rate Blood Pressure Blood Pressure [Le ft Upper Arm] Pulse Oximetry 99 99 97 Oxygen Delivery Me thod Oxygen Flow Rate 05/16/24 01:01 05/16/24 01:02 05/16/24 01:02 Temperature Pulse Rate 69 69 69 Pulse Rate [Right Pulse Oximeter] Respiratory Rate 18 Blood Pressure 169/89 H 169/89 H Blood Pressure [Le ft Upper Arm] Pulse Oximetry 100 100 100 Oxygen Delivery Me thod Oxygen Flow Rate 05/16/24 01:10 05/16/24 01:15 05/16/24 01:20 Temperature Pulse Rate 69 Pulse Rate [Right Pulse Oximeter] Respiratory Rate Blood Pressure Blood Pressure [Le ft Upper Arm] Pulse Oximetry 99 99 98 Oxygen Delivery Me thod Oxygen Flow Rate 05/16/24 01:38 05/16/24 01:40 05/16/24 02:03 Temperature Pulse Rate 67 Pulse Rate [Right Pulse Oximeter] Respiratory Rate Blood Pressure 124/73 Blood Pressure [Le ft Upper Arm] Pulse Oximetry 100 99 Oxygen Delivery Me thod Oxygen Flow Rate 05/16/24 03:02 05/16/24 04:11 05/16/24 04:11 Temperature Pulse Rate Pulse Rate [Right Pulse Oximeter] Respiratory Rate Blood Pressure 147/88 H Blood Pressure [Le ft Upper Arm] Pulse Oximetry Oxygen Delivery Me thod Room Air Room Air Oxygen Flow Rate 05/16/24 05:02 05/16/24 06:03 05/16/24 07:02 Temperature Pulse Rate 71 Pulse Rate [Right Pulse Oximeter] Respiratory Rate Blood Pressure 172/95 H 171/80 H 174/107 H Blood Pressure [Le ft Upper Arm] Pulse Oximetry Oxygen Delivery Me thod Oxygen Flow Rate 05/16/24 08:35 05/16/24 08:39 05/16/24 08:45 Temperature Pulse Rate 69 Pulse Rate [Right Pulse Oximeter] 73 Respiratory Rate 16 Blood Pressure Blood Pressure [Le ft Upper Arm] Pulse Oximetry 97 97 94 Oxygen Delivery Me thod Room Air Oxygen Flow Rate 05/16/24 09:00 05/16/24 09:03 05/16/24 09:15 Temperature Pulse Rate 72 72 71 Pulse Rate [Right Pulse Oximeter] Respiratory Rate Blood Pressure 191/96 H Blood Pressure [Le ft Upper Arm] Pulse Oximetry 95 97 97 Oxygen Delivery Me thod Oxygen Flow Rate 05/16/24 09:30 05/16/24 09:45 05/16/24 10:00 Temperature Pulse Rate 79 71 71 Pulse Rate [Right Pulse Oximeter] Respiratory Rate Blood Pressure Blood Pressure [Le ft Upper Arm] Pulse Oximetry 92 97 81 L Oxygen Delivery Me thod Oxygen Flow Rate 05/16/24 10:03 05/16/24 10:16 05/16/24 10:35 Temperature Pulse Rate 76 Pulse Rate [Right Pulse Oximeter] Respiratory Rate Blood Pressure 197/111 H 151/77 H Blood Pressure [Le ft Upper Arm] Pulse Oximetry 95 Oxygen Delivery Me thod Oxygen Flow Rate 05/16/24 10:45 05/16/24 11:00 05/16/24 11:02 Temperature Pulse Rate 66 64 65 Pulse Rate [Right Pulse Oximeter] Respiratory Rate 16 Blood Pressure 118/69 Blood Pressure [Le ft Upper Arm] Pulse Oximetry 98 95 96 Oxygen Delivery Me thod Room Air Oxygen Flow Rate 05/16/24 11:15 05/16/24 11:34 05/16/24 11:58 Temperature Pulse Rate 68 76 Pulse Rate [Right Pulse Oximeter] Respiratory Rate Blood Pressure Blood Pressure [Le ft Upper Arm] Pulse Oximetry 96 97 97 Oxygen Delivery Me thod Oxygen Flow Rate 05/16/24 12:03 Temperature Pulse Rate Pulse Rate [Right Pulse Oximeter] Respiratory Rate Blood Pressure 109/93 H Blood Pressure [Le ft Upper Arm] Pulse Oximetry Oxygen Delivery Me thod Oxygen Flow Rate This patient is alert, interactive, no apparent distress. She does have oxygen on, maintaining her airway. Speech is slow, deliberate. She has no vision on confrontation of her right visual field/eye at all. States she can see fine out of her left eye. Baseline looks like she has some right facial drooping at the corner of her mouth but when I do ask her to smile, seems to have a symmetrical smile. Neck is thick, note no masses. Shallow breathing but lungs sound clear. Cannot hear her underlying heart sounds but her monitor from EMS looks to be a sinus rhythm. Abdomen is obese but soft. She has about 4-5 symmetrical hand [employer] strengths, note no tremor. She can wiggle both of her toes, is not at a position on the EMS cart that we can do further testing. She is moved from the EMS cart to CT for imaging. <Joy Whitehead MD - Last Filed: 05/15/24 20:20> Vital Signs, click to edit/add: Vital Signs - 24 hr 05/15/24 15:20 05/15/24 15:23 05/15/24 15:33 Temperature 97.3 F L Pulse Rate 76 Pulse Rate [Right Pulse Oximeter] 76 Respiratory Rate 18 18 Blood Pressure 153/83 H Blood Pressure [Le ft Upper Arm] 157/95 H Pulse Oximetry 100 100 100 Oxygen Delivery Me thod Nasal Cannula Room Air Oxygen Flow Rate 4 05/15/24 15:40 05/15/24 15:42 05/15/24 15:51 Temperature Pulse Rate 74 Pulse Rate [Right Pulse Oximeter] Respiratory Rate 18 Blood Pressure 154/90 H Blood Pressure [Le ft Upper Arm] Pulse Oximetry 100 100 98 Oxygen Delivery Me thod Room Air Oxygen Flow Rate 05/15/24 15:52 05/15/24 16:03 05/15/24 16:14 Temperature Pulse Rate 75 75 Pulse Rate [Right Pulse Oximeter] Respiratory Rate 18 18 Blood Pressure 156/82 H 156/94 H Blood Pressure [Le ft Upper Arm] Pulse Oximetry 99 97 96 Oxygen Delivery Me thod Room Air Room Air Oxygen Flow Rate 05/15/24 16:16 05/15/24 16:20 05/15/24 16:32 Temperature Pulse Rate 76 74 Pulse Rate [Right Pulse Oximeter] Respiratory Rate 19 18 Blood Pressure 125/94 H 142/93 H Blood Pressure [Le ft Upper Arm] Pulse Oximetry 97 98 96 Oxygen Delivery Me thod Room Air Room Air Oxygen Flow Rate 05/15/24 16:40 05/15/24 16:47 05/15/24 17:00 Temperature Pulse Rate 75 Pulse Rate [Right Pulse Oximeter] Respiratory Rate Blood Pressure 127/94 H Blood Pressure [Le ft Upper Arm] Pulse Oximetry 99 99 Oxygen Delivery Me thod Oxygen Flow Rate 05/15/24 17:40 05/15/24 17:41 05/15/24 17:44 Temperature 97.3 F L Pulse Rate 73 75 73 Pulse Rate [Right Pulse Oximeter] Respiratory Rate 18 18 Blood Pressure 141/88 H 148/90 H Blood Pressure [Le ft Upper Arm] Pulse Oximetry 98 97 98 Oxygen Delivery Me thod Room Air Room Air Oxygen Flow Rate 05/15/24 17:47 05/15/24 17:50 05/15/24 18:03 Temperature Pulse Rate 72 73 Pulse Rate [Right Pulse Oximeter] Respiratory Rate 18 18 Blood Pressure 161/90 H 139/68 Blood Pressure [Le ft Upper Arm] Pulse Oximetry 98 99 99 Oxygen Delivery Me thod Room Air Room Air Oxygen Flow Rate 05/15/24 18:32 05/15/24 18:40 05/15/24 18:50 Temperature Pulse Rate 72 Pulse Rate [Right Pulse Oximeter] Respiratory Rate 16 Blood Pressure 158/90 H Blood Pressure [Le ft Upper Arm] Pulse Oximetry 99 97 98 Oxygen Delivery Me thod Room Air Oxygen Flow Rate 05/15/24 19:02 05/15/24 19:10 05/15/24 19:10 Temperature 97.3 F L Pulse Rate 75 Pulse Rate [Right Pulse Oximeter] Respiratory Rate 18 Blood Pressure 146/97 H Blood Pressure [Le ft Upper Arm] Pulse Oximetry 99 99 Oxygen Delivery Me thod Room Air Oxygen Flow Rate 05/15/24 19:34 05/15/24 19:40 05/15/24 19:50 Temperature Pulse Rate 78 Pulse Rate [Right Pulse Oximeter] Respiratory Rate 18 Blood Pressure 148/95 H Blood Pressure [Le ft Upper Arm] Pulse Oximetry 98 99 96 Oxygen Delivery Me thod Room Air Oxygen Flow Rate 05/15/24 20:02 05/15/24 20:10 05/15/24 20:15 Temperature Pulse Rate 76 72 Pulse Rate [Right Pulse Oximeter] Respiratory Rate 16 Blood Pressure 150/89 H Blood Pressure [Le ft Upper Arm] Pulse Oximetry 98 98 98 Oxygen Delivery Me thod Oxygen Flow Rate 05/15/24 20:20 05/15/24 20:31 05/15/24 20:32 Temperature Pulse Rate 82 Pulse Rate [Right Pulse Oximeter] Respiratory Rate 18 Blood Pressure 160/85 H Blood Pressure [Le ft Upper Arm] Pulse Oximetry 99 98 Oxygen Delivery Me thod Oxygen Flow Rate 05/15/24 23:39 05/15/24 23:40 05/15/24 23:41 Temperature Pulse Rate 70 68 Pulse Rate [Right Pulse Oximeter] Respiratory Rate 16 18 Blood Pressure 131/67 136/61 Blood Pressure [Le ft Upper Arm] Pulse Oximetry 98 98 97 Oxygen Delivery Me thod Oxygen Flow Rate 05/15/24 23:45 05/15/24 23:50 05/16/24 00:00 Temperature Pulse Rate 72 68 Pulse Rate [Right Pulse Oximeter] Respiratory Rate Blood Pressure Blood Pressure [Le ft Upper Arm] Pulse Oximetry 97 99 97 Oxygen Delivery Me thod Oxygen Flow Rate 05/16/24 00:03 05/16/24 00:10 05/16/24 00:14 Temperature Pulse Rate 68 68 Pulse Rate [Right Pulse Oximeter] Respiratory Rate Blood Pressure 134/60 159/77 H Blood Pressure [Le ft Upper Arm] Pulse Oximetry 98 98 98 Oxygen Delivery Me thod Oxygen Flow Rate 05/16/24 00:15 05/16/24 00:20 05/16/24 00:30 Temperature Pulse Rate 68 70 Pulse Rate [Right Pulse Oximeter] Respiratory Rate Blood Pressure Blood Pressure [Le ft Upper Arm] Pulse Oximetry 97 99 99 Oxygen Delivery Me thod Oxygen Flow Rate 05/16/24 00:40 05/16/24 00:45 05/16/24 00:50 Temperature Pulse Rate 69 Pulse Rate [Right Pulse Oximeter] Respiratory Rate Blood Pressure Blood Pressure [Le ft Upper Arm] Pulse Oximetry 99 99 97 Oxygen Delivery Me thod Oxygen Flow Rate 05/16/24 01:01 05/16/24 01:02 05/16/24 01:02 Temperature Pulse Rate 69 69 69 Pulse Rate [Right Pulse Oximeter] Respiratory Rate 18 Blood Pressure 169/89 H 169/89 H Blood Pressure [Le ft Upper Arm] Pulse Oximetry 100 100 100 Oxygen Delivery Me thod Oxygen Flow Rate 05/16/24 01:10 05/16/24 01:15 05/16/24 01:20 Temperature Pulse Rate 69 Pulse Rate [Right Pulse Oximeter] Respiratory Rate Blood Pressure Blood Pressure [Le ft Upper Arm] Pulse Oximetry 99 99 98 Oxygen Delivery Me thod Oxygen Flow Rate 05/16/24 01:38 05/16/24 01:40 05/16/24 02:03 Temperature Pulse Rate 67 Pulse Rate [Right Pulse Oximeter] Respiratory Rate Blood Pressure 124/73 Blood Pressure [Le ft Upper Arm] Pulse Oximetry 100 99 Oxygen Delivery Me thod Oxygen Flow Rate 05/16/24 03:02 05/16/24 04:11 05/16/24 04:11 Temperature Pulse Rate Pulse Rate [Right Pulse Oximeter] Respiratory Rate Blood Pressure 147/88 H Blood Pressure [Le ft Upper Arm] Pulse Oximetry Oxygen Delivery Me thod Room Air Room Air Oxygen Flow Rate 05/16/24 05:02 05/16/24 06:03 05/16/24 07:02 Temperature Pulse Rate 71 Pulse Rate [Right Pulse Oximeter] Respiratory Rate Blood Pressure 172/95 H 171/80 H 174/107 H Blood Pressure [Le ft Upper Arm] Pulse Oximetry Oxygen Delivery Me thod Oxygen Flow Rate 05/16/24 08:35 05/16/24 08:39 05/16/24 08:45 Temperature Pulse Rate 69 Pulse Rate [Right Pulse Oximeter] 73 Respiratory Rate 16 Blood Pressure Blood Pressure [Le ft Upper Arm] Pulse Oximetry 97 97 94 Oxygen Delivery Me thod Room Air Oxygen Flow Rate 05/16/24 09:00 05/16/24 09:03 05/16/24 09:15 Temperature Pulse Rate 72 72 71 Pulse Rate [Right Pulse Oximeter] Respiratory Rate Blood Pressure 191/96 H Blood Pressure [Le ft Upper Arm] Pulse Oximetry 95 97 97 Oxygen Delivery Me thod Oxygen Flow Rate 05/16/24 09:30 05/16/24 09:45 05/16/24 10:00 Temperature Pulse Rate 79 71 71 Pulse Rate [Right Pulse Oximeter] Respiratory Rate Blood Pressure Blood Pressure [Le ft Upper Arm] Pulse Oximetry 92 97 81 L Oxygen Delivery Me thod Oxygen Flow Rate 05/16/24 10:03 05/16/24 10:16 05/16/24 10:35 Temperature Pulse Rate 76 Pulse Rate [Right Pulse Oximeter] Respiratory Rate Blood Pressure 197/111 H 151/77 H Blood Pressure [Le ft Upper Arm] Pulse Oximetry 95 Oxygen Delivery Me thod Oxygen Flow Rate 05/16/24 10:45 05/16/24 11:00 05/16/24 11:02 Temperature Pulse Rate 66 64 65 Pulse Rate [Right Pulse Oximeter] Respiratory Rate 16 Blood Pressure 118/69 Blood Pressure [Le ft Upper Arm] Pulse Oximetry 98 95 96 Oxygen Delivery Me thod Room Air Oxygen Flow Rate 05/16/24 11:15 05/16/24 11:34 05/16/24 11:58 Temperature Pulse Rate 68 76 Pulse Rate [Right Pulse Oximeter] Respiratory Rate Blood Pressure Blood Pressure [Le ft Upper Arm] Pulse Oximetry 96 97 97 Oxygen Delivery Me thod Oxygen Flow Rate 05/16/24 12:03 Temperature Pulse Rate Pulse Rate [Right Pulse Oximeter] Respiratory Rate Blood Pressure 109/93 H Blood Pressure [Le ft Upper Arm] Pulse Oximetry Oxygen Delivery Me thod Oxygen Flow Rate <Carlos Dacosta, DO - Last Filed: 05/16/24 14:50> Documenting provider has reviewed patient's vital signs: yes <Joy Whitehead MD - Last Filed: 05/15/24 20:20> Course Course ED Course: This patient had stat head and angio imaging done. She will speak with Stroke Neurology and proceed with appropriate workup. <Joy Whitehead MD - Last Filed: 05/15/24 20:20> Reevaluation(s) Time of Reevaluation #1: 16:43 <Joy Whitehead MD - Last Filed: 05/15/24 20:20> Reevaluation #1: Have confirmed with son that she has been taking Eliquis. He does help with medicines. He feels her speech is at baseline. They are aware that she will be getting an MRI. Patient still states that she cannot see out of her right eye. Her son feels that her speech is baseline (do note some dysarthria). <Joy Whitehead MD - Last Filed: 05/15/24 20:20> Time of Reevaluation #2: 20:19 <Joy Whitehead MD - Last Filed: 05/15/24 20:20> Reevaluation #2: Due to staffing shortages because of illness, there is no hospital availability at this time for beds. We are unsuccessful in finding facility placement at outside institutions as well. I have ordered patient's routine medications. Her eyedrops all have to be brought in from home, were not ordered. <Joy Whitehead MD - Last Filed: 05/15/24 20:20> Consultations Consultation #1: Spoke with Stroke Neurology Dr. Gaines. She will assess the patient. 3:46 p.m.: She does not see any definite reason for right eye pathology, there is some atherosclerosis in an area of the carotids which may potentially be an etiology. The literature would not support lytics for pathology of the eye, is done for brain. I will confirm that the patient has been getting Eliquis and texture back. We will be proceeding with brain MRI. 4:48 p.m.: Confirmed that patient is getting Eliquis. She would like the MRI done, will plan on seeing the patient tomorrow. <Joy Whitehead MD - Last Filed: 05/15/24 20:20> Time: 15:28 <Joy Whitehead MD - Last Filed: 05/15/24 20:20> Consultation #2: Have reviewed with Dr. Perez the stroke neurologist would like this patient observed overnight, she will see her in the morning. <Joy Whitehead MD - Last Filed: 05/15/24 20:20> Time: 18:19 <Joy Whitehead MD - Last Filed: 05/15/24 20:20> Vital Signs Vital signs: Initial Vital Signs Pulse Oximetry 100 05/15/24 15:20 Vital Signs Pulse Oximetry 100 05/15/24 15:20 Temperature 97.3 F L 05/15/24 19:10 Pulse Rate 76 05/16/24 11:34 Respiratory Rate 16 05/16/24 11:02 Blood Pressure 109/93 H 05/16/24 12:03 Pulse Oximetry 97 05/16/24 11:58 Oxygen Delivery Method Room Air 05/16/24 11:02 Oxygen Flow Rate 4 05/15/24 15:23 <Joy Whitehead MD - Last Filed: 05/15/24 20:20> Initial Vital Signs Pulse Oximetry 100 05/15/24 15:20 Vital Signs Pulse Oximetry 100 05/15/24 15:20 Temperature 97.3 F L 05/15/24 19:10 Pulse Rate 76 05/16/24 11:34 Respiratory Rate 16 05/16/24 11:02 Blood Pressure 109/93 H 05/16/24 12:03 Pulse Oximetry 97 05/16/24 11:58 Oxygen Delivery Method Room Air 05/16/24 11:02 Oxygen Flow Rate 4 05/15/24 15:23 <Carlos Dacosta DO - Last Filed: 05/16/24 14:50> Medications Administered Medications: Generic Name Dose Route Start Last Admin Trade Name Freq PRN Reason Stop Dose Admin Acetaminophen 1,000 mg 05/15/24 21:00 05/16/24 09:14 Acetaminophen 500 Mg Tablet PO 1,000 mg TID EFRA Administration Amlodipine Besylate 5 mg 05/16/24 09:00 05/16/24 09:14 Amlodipine 5 Mg Tablet PO 5 mg DAILY EFRA Administration Apixaban 5 mg 05/15/24 21:00 05/16/24 09:15 Apixaban 5 Mg Tablet PO 5 mg BID EFRA Administration Fluoxetine HCl 40 mg 05/16/24 09:00 05/16/24 09:14 Fluoxetine Hcl 20 Mg Capsule PO 40 mg DAILY EFRA Administration Losartan Potassium 50 mg 05/15/24 21:00 05/16/24 09:14 Losartan Potassium 50 Mg Tablet PO 50 mg DAILY EFRA Administration Metoprolol Tartrate 25 mg 05/15/24 21:00 05/16/24 09:15 Metoprolol Tartrate 25 Mg Tablet PO 25 mg BID EFRA Administration <Joy Whitehead MD - Last Filed: 05/15/24 20:20> Generic Name Dose Route Start Last Admin Trade Name Mariel PRN Reason Stop Dose Admin Acetaminophen 1,000 mg 05/15/24 21:00 05/16/24 09:14 Acetaminophen 500 Mg Tablet PO 1,000 mg TID EFRA Administration Amlodipine Besylate 5 mg 05/16/24 09:00 05/16/24 09:14 Amlodipine 5 Mg Tablet PO 5 mg DAILY EFRA Administration Apixaban 5 mg 05/15/24 21:00 05/16/24 09:15 Apixaban 5 Mg Tablet PO 5 mg BID EFRA Administration Fluoxetine HCl 40 mg 05/16/24 09:00 05/16/24 09:14 Fluoxetine Hcl 20 Mg Capsule PO 40 mg DAILY EFRA Administration Losartan Potassium 50 mg 05/15/24 21:00 05/16/24 09:14 Losartan Potassium 50 Mg Tablet PO 50 mg DAILY EFRA Administration Metoprolol Tartrate 25 mg 05/15/24 21:00 05/16/24 09:15 Metoprolol Tartrate 25 Mg Tablet PO 25 mg BID EFRA Administration <Carlos Dacosta DO - Last Filed: 05/16/24 14:50> Medical Decision Making MDM Narrative Medical decision making narrative: Patient is a 54-year-old female signed out to me pending repeat Neuro evaluation and possible admission. She was eventually evaluated by [facility] 2nd time and they do not see anything concerning for a stroke. Imaging has all been done showing no concerning findings. At this time she recommends outpatient echocardiogram and follow-up with PCP and Ophthalmology. Also recommends ESR, hemoglobin HbA1c, lipid panel. Does recommend to keep her on her Eliquis. ESR came back within normal limits and thus temporal arteritis seems unlikely. Of note while she was waiting in the emergency department she had an episode where oxygen sats at 81%. I went and re-evaluated her and put the oxygen probe back on it was 97% here it either way a VBG was done showing no concerning findings the chest x-ray reviewed by myself and the radiologist was normal. This time she will be discharged she is agreeable to this plan. I have updated her son on this plan and he is agreeable. <Carlos Dacosta DO - Last Filed: 05/16/24 14:50> Lab Data Lab results reviewed: Yes I reviewed the patient's lab results <Joy Whitehead MD - Last Filed: 05/15/24 20:20> Labs: Lab Results 05/15/24 05/16/24 05/16/24 Range/Units 16:29 11:33 13:39 WBC 8.59 (4.50-11.00) K/uL RBC 4.22 (4.00-5.20) m/uL Hgb 11.9 L (12.0-16.0) gm/dL Hct 37.5 (33.0-51.0) % MCV 89 (80-100) fL MCH 28 (26-34) pg MCHC 32 (32-36) gm/dL RDW Coeff of Ximena 13.8 (11.5-15.5) % Plt Count 342 (140-440) K/uL Neut % (Auto) 48.5 (42.0-72.0) % Lymph % (Auto) 39.5 (20-44) % [place] % (Auto) 8.5 (0.0-11.0) % Eos % (Auto) 2.2 (0.0-7.0) % Baso % (Auto) 1.2 (0.0-3.0) % Neut # (Auto) 4.17 (1.7-7.0) K/uL Lymph # (Auto) 3.39 H (0.90-2.90) K/uL Marathon # (Auto) 0.70 (0.00-0.90) K/UL Eos # (Auto) 0.19 (0.00-0.50) K/uL Baso # (Auto) 0.10 (0.00-0.30) K/uL Abs Immat Gran (auto) 0.01 (0.00-0.30) K/uL Imm/Tot Granulo (auto) 0.1 % ESR 14 (2-20) mm/hr VBG pH 7.372 (7.32-7.43) VBG pCO2 45 (40-50) mmHG VBG pO2 42.5 (25-47) mmHG VBG HCO3 26 (21-28) mmol/L Sodium 139 (135-149) mmol/L Potassium 4.3 (3.6-5.1) mmol/L Chloride 106 (96-114) mmol/L Carbon Dioxide 26 (20-32) mmol/L Anion Gap 7 (7-15) mEq/L BUN 11 (7-30) mg/dL Creatinine 0.8 (0.5-1.5) mg/dL Estimated Creat Clear 74.02 Estimated GFR 89 ml/min Glucose 138 H (60-115) mg/dL Hemoglobin A1c 7.3 H (0-5.6) % Lactate 1.0 (0.5-1.9) mmol/L Calcium 9.2 (8.4-10.6) mg/dL Magnesium 2.0 (1.5-2.6) mg/dL Total Bilirubin 0.7 (0.1-1.5) mg/dL AST 15 (12-35) U/L ALT 9 (4-35) U/L Alkaline Phosphatase 38 L (40-150) U/L Troponin I < 0.01 L (0.01-0.04) ng/mL C-Reactive Protein < 0.5 L (0.5-1.0) mg/dL NT-Pro-B Natriuret Pep 100 pg/mL Total Protein 7.0 (6.0-8.3) g/dL Albumin 3.8 (3.3-5.0) g/dL Triglycerides 138 (40-149) mg/dL Cholesterol 218 H (90-199) mg/dL LDL Cholesterol, Calc 148 H (<100) mg/dL HDL Cholesterol 42 L (>=50) mg/dL <Joy Whitehead MD - Last Filed: 05/15/24 20:20> Lab Results 05/15/24 05/16/24 05/16/24 Range/Units 16:29 11:33 13:39 WBC 8.59 (4.50-11.00) K/uL RBC 4.22 (4.00-5.20) m/uL Hgb 11.9 L (12.0-16.0) gm/dL Hct 37.5 (33.0-51.0) % MCV 89 (80-100) fL MCH 28 (26-34) pg MCHC 32 (32-36) gm/dL RDW Coeff of Ximena 13.8 (11.5-15.5) % Plt Count 342 (140-440) K/uL Neut % (Auto) 48.5 (42.0-72.0) % Lymph % (Auto) 39.5 (20-44) % Marathon % (Auto) 8.5 (0.0-11.0) % Eos % (Auto) 2.2 (0.0-7.0) % Baso % (Auto) 1.2 (0.0-3.0) % Neut # (Auto) 4.17 (1.7-7.0) K/uL Lymph # (Auto) 3.39 H (0.90-2.90) K/uL Marathon # (Auto) 0.70 (0.00-0.90) K/UL Eos # (Auto) 0.19 (0.00-0.50) K/uL Baso # (Auto) 0.10 (0.00-0.30) K/uL Abs Immat Gran (auto) 0.01 (0.00-0.30) K/uL Imm/Tot Granulo (auto) 0.1 % ESR 14 (2-20) mm/hr VBG pH 7.372 (7.32-7.43) VBG pCO2 45 (40-50) mmHG VBG pO2 42.5 (25-47) mmHG VBG HCO3 26 (21-28) mmol/L Sodium 139 (135-149) mmol/L Potassium 4.3 (3.6-5.1) mmol/L Chloride 106 (96-114) mmol/L Carbon Dioxide 26 (20-32) mmol/L Anion Gap 7 (7-15) mEq/L BUN 11 (7-30) mg/dL Creatinine 0.8 (0.5-1.5) mg/dL Estimated Creat Clear 74.02 Estimated GFR 89 ml/min Glucose 138 H (60-115) mg/dL Hemoglobin A1c 7.3 H (0-5.6) % Lactate 1.0 (0.5-1.9) mmol/L Calcium 9.2 (8.4-10.6) mg/dL Magnesium 2.0 (1.5-2.6) mg/dL Total Bilirubin 0.7 (0.1-1.5) mg/dL AST 15 (12-35) U/L ALT 9 (4-35) U/L Alkaline Phosphatase 38 L (40-150) U/L Troponin I < 0.01 L (0.01-0.04) ng/mL C-Reactive Protein < 0.5 L (0.5-1.0) mg/dL NT-Pro-B Natriuret Pep 100 pg/mL Total Protein 7.0 (6.0-8.3) g/dL Albumin 3.8 (3.3-5.0) g/dL Triglycerides 138 (40-149) mg/dL Cholesterol 218 H (90-199) mg/dL LDL Cholesterol, Calc 148 H (<100) mg/dL HDL Cholesterol 42 L (>=50) mg/dL <Carlos Dacosta DO - Last Filed: 05/16/24 14:50> Imaging Data CT scan - head: Attestation: I have reviewed the pertinent imaging results. <Joy Whitehead MD - Last Filed: 05/15/24 20:20> Radiologist's impression: Patient: ICNDY HOSKINS Facility:?[facility] Patient ID:?[id number] Site Patient ID:?[id number]. Site :?1970 Study:?CT-Head CODE STROKE W/O-05/15/2024 3:25:51 PM Ordering Physician:Mckenzie Hamilton Final Report: INDICATION: RT VISUAL LOSS. NO NEURO RAD AT THIS TIME. TECHNIQUE: Head CT without contrast. COMPARISON: December 20, 2022. FINDINGS: CSF spaces: Within normal limits for age. Brain parenchyma and extra-axial spaces: There are nonspecific low attenuation white matter changes consistent with chronic microvascular disease. Bilateral basal ganglia lacunar type infarcts, few are new compared to the prior exam from December 20, 2022. In addition, there also infarcts within the right and left cerebellar hemispheres, again appear to be new compared to the prior exam December 20, 2022. Mild diffuse atrophy and resultant mild dilation of the ventricles and CSF spaces including the bilateral sylvian fissures. This is also increased compared to prior. No sign of mass, hemorrhage, or midline shift. Skull base and calvarium: Mild thickening in the left maxillary sinus. Otherwise, paranasal sinuses and mastoid air cells are clear. The visualized orbits are grossly unremarkable. No skull fractures. IMPRESSION: 1. no acute intracranial process identified. No intracranial hemorrhage identified. 2. Bilateral cerebellar hemisphere old infarcts as well as multiple old lacunar type infarcts in the bilateral basal ganglia the predominant portion of which are new compared to December 20, 2022. Please note that all CT scans at this facility use dose modulation, iterative reconstruction, and/or weight-based dosing when appropriate to reduce radiation dose to as low as reasonably achievable. Dictated by Caleb Tineo MD @ 05/15/2024 3:35:59 PM (Electronic Signature) <Joy Whitehead MD - Last Filed: 05/15/24 20:20> CT- Other: Attestation: I have reviewed the pertinent imaging results. <Joy Whitehead MD - Last Filed: 05/15/24 20:20> Radiologist's impression: Patient: CINDY HOSKINS Facility:?[facility] Patient ID:?[id number] Site Patient ID:?[id number]. Site :?1970 Study:?CT-Neck Angio Angio CODE STROKE W/ 95CC ISOVUE 370-05/15/2024 3:27:56 PM Ordering Physician:Mckenzie Hamilton Preliminary Report: COMPARISON: None. IMPRESSION: CTA head: No large vessel occlusion or significant aneurysm. CTA neck: No sign of dissection or critical stenosis. Dictated by Caleb Tineo MD @ 05/15/2024 3:39:28 PM Read by:?Caleb Tineo MD @05/15/2024 3:39:33 PM <Joy Whitehead MD - Last Filed: 05/15/24 20:20> MRI - head: Attestation: I have reviewed the pertinent imaging results. <Joy Whitehead MD - Last Filed: 05/15/24 20:20> Radiologist's impression: Patient: CINDY HOSKINS Facility:?[facility] Patient ID:?[id number] Site Patient ID:?[id number]. Site :?1970 Study:?MRI-Head W/O-05/15/2024 6:01:19 PM Ordering Physician:Mckenzie Hamilton Final Report: INDICATION: Right-sided vision loss. COMPARISON: CT and CTA from earlier today. Technique Multiplanar T1, T2, FLAIR and diffusion-weighted imaging. FINDINGS: Motion artifact compromises image detail of multiple sequences. Grossly normal brain parenchymal morphology. Patchy T2/FLAIR signal hyperintensity within the white matter both supra hemispheres and tosha most likely represents chronic deep white matter small vessel ischemic changes. Compared to the previous CT, stable old infarcts of the bilateral cerebellar hemispheres, right greater left. No intracranial hemorrhage. Compensatory mild dilatation ventricular system. Intracranial vascular flow voids are preserved. No midline shift. Allowing for artifact, no restricted diffusion to suggest acute ischemia. No susceptibility artifact of remote hemorrhage. Bilateral orbits are grossly unremarkable. Visualized paranasal sinuses mastoid air cells are unremarkable. IMPRESSION: 1. Motion artifact compromises image detail. 2. No acute intracranial abnormality 3. Grossly normal brain parenchymal morphology. Chronic deep white matter small vessel ischemic changes. Stable old infarcts of the bilateral cerebellar hemispheres, right greater than left. Dictated by Sloan Garcia MD @ 05/15/2024 6:05:21 PM (Electronic Signature) <Joy Whitehead MD - Last Filed: 05/15/24 20:20> Chest x-ray: Attestation: I have reviewed the pertinent imaging results. <Carlos Dacosta DO - Last Filed: 05/16/24 14:50> Radiologist's impression: Mild cardiomegaly without pulmonary edema. No focal consolidation, effusion or pneumothorax. A loop recorder is identified. No acute osseous findings. Dictated by Micaela Danielson MD @ 05/16/2024 11:01:17 AM <Carlos Dacosta DO - Last Filed: 05/16/24 14:50> ECG Data Attestation: I personally reviewed and interpreted this ECG as follows: (Sinus rhythm with first-degree AV block, 76 beats per minute. Low-voltage QRS. No evidence of any infarct or ischemia.) <Joy Whitehead MD - Last Filed: 05/15/24 20:20> Prior ECG tracings: available for review (Compared to 10/22/2023, no concerning change.) <Joy Whitehead MD - Last Filed: 05/15/24 20:20> Discharge Plan Discharge Clinical Impression: Sudden visual loss of right eye <Joy Whitehead MD - Last Filed: 05/15/24 20:20> Patient Disposition: Home, Self-Care <Joy Whitehead MD - Last Filed: 05/15/24 20:20> Condition: Stable <Joy Whitehead MD - Last Filed: 05/15/24 20:20> Additional Instructions: Where unsure exactly was causing her vision loss at this time would be see no signs of a stroke. You will need to continue her Eliquis and have close follow-up with your primary care provider and ophthalmology. Return to emergency department for new or worsening symptoms. <Joy Whitehead MD - Last Filed: 05/15/24 20:20> Prescriptions: No Action (DME) blood-glucose meter Kit See Rx Instructions .Route Qty: 1 0RF Rx Instructions: 4x daily testing (DME) Test Strips Misc See Rx Instructions .Route Qty: 100 1RF Rx Instructions: As directed fluoxetine 40 mg capsule DAILY atorvastatin 80 mg tablet DAILY sennosides [senna] 8.6 mg tablet DAILY (DME) Accu-Chek Guide test strips Strip MISCELLANEOUS Patient Comments: [NO ORIGINAL SIG] amlodipine 5 mg tablet DAILY (DME) lancets [Accu-Chek Softclix Lancets] Misc MISCELLANEOUS losartan 25 mg tablet DAILY omeprazole 20 mg capsule,delayed release(DR/EC) losartan 100 mg tablet DAILY metoprolol tartrate 25 mg tablet Eliquis 5 mg tablet (DME) FreeStyle Alex 2 Sensor Kit MISCELLANEOUS Patient Comments: [NO ORIGINAL SIG] brimonidine 0.2 % drops 1 drp ophthalmic (eye) DAILY insulin lispro [Humalog KwikPen Insulin] 100 unit/mL insulin pen 20 unit subcut TIDWM insulin glargine [Lantus Solostar U-100 Insulin] 100 unit/mL (3 mL) insulin pen 38 unit subcut HS metformin 1,000 mg tablet 1,000 mg PO BID lisinopril 40 mg tablet 40 mg PO DAILY <Joy Whitehead MD - Last Filed: 05/15/24 20:20> Follow Up/Referrals: Radha Avelar MD [Primary Care Provider] - <Joy Whitehead MD - Last Filed: 05/15/24 20:20> Stand Alone Forms: MyHealth Info Instructions <Joy Whitehead MD - Last Filed: 05/15/24 20:20>
--- NOTE | 2024-05-15 16:38 | CRLHL7_ITS ---
For Patients: As a result of the Century Cures Act, medical imaging exams and procedure reports are released immediately into your electronic medical record. You may view this report before your referring provider. If you have questions, please contact your health care provider. INDICATION: Right-sided vision loss. COMPARISON: CT and CTA from earlier today. Technique Multiplanar T1, T2, FLAIR and diffusion-weighted imaging. FINDINGS: Motion artifact compromises image detail of multiple sequences. Grossly normal brain parenchymal morphology. Patchy T2/FLAIR signal hyperintensity within the white matter both supra hemispheres and tosha most likely represents chronic deep white matter small vessel ischemic changes. Compared to the previous CT, stable old infarcts of the bilateral cerebellar hemispheres, right greater left. No intracranial hemorrhage. Compensatory mild dilatation ventricular system. Intracranial vascular flow voids are preserved. No midline shift. Allowing for artifact, no restricted diffusion to suggest acute ischemia. No susceptibility artifact of remote hemorrhage. Bilateral orbits are grossly unremarkable. Visualized paranasal sinuses mastoid air cells are unremarkable. IMPRESSION: 1. Motion artifact compromises image detail. 2. No acute intracranial abnormality 3. Grossly normal brain parenchymal morphology. Chronic deep white matter small vessel ischemic changes. Stable old infarcts of the bilateral cerebellar hemispheres, right greater than left. Dictated by Sloan Garcia MD @ 05/15/2024 6:05:21 PM (Electronically Signed)
[2024-05-15 16:44] LABS: Basophils Percent Auto 1.2 % (0.0-3.0); Eosinophils Absolute Auto 0.19 K/uL (0.00-0.50); Eosinophils Percent Auto 2.2 % (0.0-7.0); Hematocrit 37.5 % (33.0-51.0); Hemoglobin* 11.9 gm/dL (12.0-16.0); Immature Granulocytes Abs Auto 0.01 K/uL (0.00-0.30); Immature Granulocytes Pct Auto 0.1 %; Lymphocytes Absolute Auto 3.39 K/uL (0.90-2.90); Lymphocytes Percent Auto 39.5 % (20-44); Mean Corpuscular HGB Conc 32 gm/dL (32-36); Mean Corpuscular Hemoglobin 28 pg (26-34); Mean Corpuscular Volume 89 fL (80-100); Monocytes Percent Auto 8.5 % (0.0-11.0); Neutrophils Absolute Auto 4.17 K/uL (1.7-7.0); Neutrophils Percent Auto 48.5 % (42.0-72.0); Platelet Count* 342 K/uL (140-440); RDW Coefficient of Variation % 13.8 % (11.5-15.5); Red Blood Count 4.22 m/uL (4.00-5.20); White Blood Count* 8.59 K/uL (4.50-11.00)
[2024-05-15 16:53] LABS: Slide Review Reflex No
[2024-05-15 17:03] LABS: Albumin* 3.8 g/dL (3.3-5.0); Chloride* 106 mmol/L (96-114)
[2024-05-15 17:04] LABS: Potassium* 4.3 mmol/L (3.6-5.1); Sodium* 139 mmol/L (135-149)
[2024-05-15 17:06] LABS: Bilirubin Total* 0.7 mg/dL (0.1-1.5); Creatinine* 0.8 mg/dL (0.5-1.5); Est. Creatinine Clearance* 74.02; Estimated Glomerular Filt Rate 89 ml/min
[2024-05-15 17:07] LABS: Alanine Aminotransferase* 9 U/L (4-35); Alkaline Phosphatase* 38 U/L (40-150); Anion Gap 7 mEq/L (7-15); Aspartate Amino Transferase* 15 U/L (12-35); Blood Urea Nitrogen* 11 mg/dL (7-30); Calcium* 9.2 mg/dL (8.4-10.6); Carbon Dioxide* 26 mmol/L (20-32); Glucose* 138 mg/dL (60-115)
[2024-05-15 17:12] LABS: C Reactive Protein* < 0.5 mg/dL (0.5-1.0)
[2024-05-15 17:36] LABS: NT Pro B Type NatriureticPept* 100 pg/mL; Troponin I* < 0.01 ng/mL (0.01-0.04)
[2024-05-15] MEDS: METOPROLOL TARTRATE 25 MG TABLET PO (21:57)
[2024-05-15] MEDS: ACETAMINOPHEN 500 MG TABLET 1000 MG PO (21:57)
[2024-05-15] MEDS: APIXABAN 5 MG TABLET PO (21:57)
[2024-05-15] MEDS: LOSARTAN POTASSIUM 50 MG TABLET PO (21:57)
[2024-05-16] VITALS (47 sets, daily range): BP systolic 109–197; BP diastolic 60–111; PULSE 64–79; RESP 16–18; O2SAT 81–100
[2024-05-16] MEDS: FLUOXETINE HCL 20 MG CAPSULE 40 MG PO (09:14)
[2024-05-16] MEDS: ACETAMINOPHEN 500 MG TABLET 1000 MG PO (09:14)
[2024-05-16] MEDS: AMLODIPINE 5 MG TABLET PO (09:14)
[2024-05-16] MEDS: LOSARTAN POTASSIUM 50 MG TABLET PO (09:14)
[2024-05-16] MEDS: APIXABAN 5 MG TABLET PO (09:15)
[2024-05-16] MEDS: METOPROLOL TARTRATE 25 MG TABLET PO (09:15)
--- NOTE | 2024-05-16 10:34 | CRLHL7_ITS ---
For Patients: As a result of the Century Cures Act, medical imaging exams and procedure reports are released immediately into your electronic medical record. You may view this report before your referring provider. If you have questions, please contact your health care provider. INDICATION: Hypoxia. TECHNIQUE: Chest 1 views. COMPARISON: X-ray chest April 2024 FINDINGS/IMPRESSION: Mild cardiomegaly without pulmonary edema. No focal consolidation, effusion or pneumothorax. A loop recorder is identified. No acute osseous findings. Dictated by Micaela Danielson MD @ 05/16/2024 11:01:17 AM (Electronically Signed)
[2024-05-16 11:40] LABS: HCO3 VBG 26 mmol/L (21-28); PCO2 VBG 45 mmHG (40-50); PO2 VBG 42.5 mmHG (25-47); pH VBG 7.372 (7.32-7.43)
[2024-05-16 13:56] LABS: Hemoglobin A1C* 7.3 % (0-5.6)
[2024-05-16 14:04] LABS: Cholesterol* 218 mg/dL (90-199); Triglycerides* 138 mg/dL (40-149)
[2024-05-16 14:05] LABS: HDL Cholesterol* 42 mg/dL (>=50); LDL Cholesterol Calculated 148 mg/dL (<100)
[2024-05-16 14:25] LABS: Erythrocyte SedimentationRate* 14 mm/hr (2-20)
== END 2024-05-16 15:15 | disposition home or self-care (01) ==
PROVIDERS: Family Medicine; Emergency Provider Student in an Organized Health Care Education/Training Program; PCP Family Medicine
DX: H54.61 Unqualified visual loss, right eye, normal vision left eye (principal)
CPT/HCPCS: 36415; 70450; 70496; 70498; 70551; 71045; 80053; 80061; 82803; 82962; 83036; 83605; 83735; 83880; 84484; 85025; 85651; 86140; 93005; 94761; 99284; 99285; A9270; Q9967

== ENCOUNTER 2024-05-16 17:35 | Outpatient (CLI) | payer MEDICAID, SELFPAY | END 2024-05-16 17:36 | disposition home or self-care (01) | LOC: AMB 05-25 07:14 | PROVIDERS: PCP Family Medicine; Visit Provider Student in an Organized Health Care Education/Training Program | DX: H54.7 Unspecified visual loss (principal) | CPT/HCPCS: A0425; A0428 ==

== ENCOUNTER 2025-03-09 16:09 | Outpatient (CLI) | payer MEDICAID, SELFPAY | END 2025-03-09 16:10 | disposition home or self-care (01) | LOC: AMB 03-12 16:15 | PROVIDERS: PCP Family Medicine; Visit Provider Family Medicine | DX: R53.1 Weakness (principal) | CPT/HCPCS: A0425; A0429 ==

== ENCOUNTER 2025-03-09 16:55 | Inpatient (IN) | payer MEDICAID, SELFPAY ==
[2025-03-09] VITALS (8 sets, daily range): BP systolic 138–149; BP diastolic 86–95; PULSE 81–92; RESP 18; TEMP 36.3–36.6; O2SAT 93–99
--- NOTE | 2025-03-09 17:06 | CRLHL7_ITS ---
For Patients: As a result of the Century Cures Act, medical imaging exams and procedure reports are released immediately into your electronic medical record. You may view this report before your referring provider. If you have questions, please contact your health care provider. INDICATION: Weakness, altered mental status. History of multiple strokes. TECHNIQUE: CT head without contrast. COMPARISON: MRI brain 05/15/2024 FINDINGS: CSF spaces: Within normal limits for age. Brain parenchyma: No intracranial bleed or mass effect. Old lacunar infarcts at the bilateral basal ganglia with old bilateral cerebellar infarcts. Skull base and calvarium: The visualized paranasal sinuses and mastoid air cells demonstrate no acute or significant findings. The visualized orbits are grossly unremarkable. No skull fractures. IMPRESSION: 1. No intracranial bleed or mass effect. 2. Old bilateral basal ganglia lacunar infarcts and old bilateral cerebellar infarcts. Please note that all CT scans at this facility use dose modulation, iterative reconstruction, and/or weight-based dosing when appropriate to reduce radiation dose to as low as reasonably achievable. Dictated by Ramesh Diez MD @ 03/09/2025 6:07:22 PM (Electronically Signed)
--- NOTE | 2025-03-09 17:07 | CRLHL7_ITS ---
For Patients: As a result of the Cures Act, medical imaging exams and procedure reports are released immediately into your electronic medical record. You may view this report before your referring provider. If you have questions, please contact your health care provider. Indication: Altered mental status, weakness and history of multiple strokes. Technique: Chest 1 view Comparison: Chest x-ray 05/16/2024 Findings/Impression: Cardiovascular and mediastinum: Normal heart size with loop recorder and mild aortic tortuosity. Lungs and pleural space: Low lung volumes without pleural effusion or pneumothorax. No focal consolidation. Bones and soft tissues: No acute findings. Dictated by Ramesh Diez MD @ 03/09/2025 6:03:14 PM (Electronically Signed)
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
[2025-03-09 18:23] LABS: Lactate* 1.6 mmol/L (0.5-1.9)
[2025-03-09 18:27] LABS: Hematocrit* 45.3 % (33.0-51.0); Hemoglobin* 14.4 gm/dL (12.0-16.0); Immature Granulocytes Abs Auto 0.01 K/uL (0.00-0.30); Immature Granulocytes Pct Auto 0.1 %; Mean Corpuscular HGB Conc 32 gm/dL (32-36); Mean Corpuscular Hemoglobin 28 pg (26-34); Mean Corpuscular Volume 89 fL (80-100); RDW Coefficient of Variation % 14.0 % (11.5-15.5); Red Blood Count* 5.11 m/uL (4.00-5.20); White Blood Count* 7.18 K/uL (4.50-11.00)
[2025-03-09 18:32] LABS: PCR FLU A Negative PCR FLU A (Negative); PCR FLU B Negative PCR FLU B (Negative); PCR RSV Negative PCR RSV (Negative); SARS PCR* Negative SARS-CoV-2 (Negative)
[2025-03-09 18:36] LABS: Lymphocytes Absolute Auto 3.20 K/uL (0.90-2.90); Slide Review Reflex No
[2025-03-09 18:44] LABS: Chloride* 102 mmol/L (96-114)
[2025-03-09 18:45] LABS: Albumin* 4.4 g/dL (3.3-5.0); Potassium* 3.8 mmol/L (3.6-5.1); Sodium* 139 mmol/L (135-149)
[2025-03-09 18:47] LABS: Blood Urea Nitrogen* 25 mg/dL (7-30); Creatinine* 1.3 mg/dL (0.5-1.5); Estimated Glomerular Filt Rate 49 ml/min
[2025-03-09 18:48] LABS: Alanine Aminotransferase* 15 U/L (4-35); Alkaline Phosphatase* 53 U/L (40-150); Anion Gap 10 mEq/L (7-15); Aspartate Amino Transferase* 19 U/L (12-35); Bilirubin Total* 1.5 mg/dL (0.1-1.5); Calcium* 9.6 mg/dL (8.4-10.6); Carbon Dioxide* 27 mmol/L (20-32); Glucose* 107 mg/dL (60-115); Total Protein* 8.5 g/dL (6.0-8.3)
[2025-03-09 18:50] LABS: Ethanol* < 0.01 % (0.01-0.03)
[2025-03-09 19:05] LABS: NT Pro B Type NatriureticPept* 54 pg/mL (See Note)
[2025-03-09 19:40] LABS: TSH With Reflex to FT4* 0.648 uIU/mL (0.270-4.200)
[2025-03-09 19:59] LABS: Appearance Urine Turbid (Clear)
[2025-03-09] MEDS: cefTRIAXone 2 GM in 0.9 % SODIUM CHLORIDE Mini-bag 100 ML IVPB (20:30)
--- NOTE | 2025-03-09 20:57 | PC.NURSE ---
Patient okayed nurse calling son with update. Nurse called son to notify him that patient was being admitted for the night for UTI, getting IV antiboitics and possible MRI. Caller understands and agrees with plan.
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
[2025-03-09 22:25] LABS: Cannabinoid Screen Urine Negative (Negative); Methamphetamines Screen Urine Negative (Negative); Tricyclic Antidepressant Urine Negative (Negative)
[2025-03-10] VITALS (10 sets, daily range): BP systolic 110–147; BP diastolic 71–103; PULSE 78–97; RESP 16–18; TEMP 36.2–36.4; O2SAT 96–100; BMI 37.4; BMI 37.0
[2025-03-10] MEDS: MELATONIN 3 MG TABLET PO ×2 (02:52→20:59)
--- NOTE | 2025-03-10 06:47 | PC.NURSE ---
Pt alert to self and year. Pt arrived to floor around 2114. Pt able to answer yes and non questions appropriately. Shortly after arrival Pt was given a full bed bath and skin moisturized. Pt?s skin was very dry and flakey through out the body. Pt has scattered micro tears/ abrasions on outer thighs; no open wounds-MD updated. Pt pleasant and cooperative. Pt able to assist with movement in bed. Pt?s VSS.?
[2025-03-10] MEDS: METFORMIN 1,000 MG TABLET 500 MG PO (08:53)
[2025-03-10] MEDS: METOPROLOL TARTRATE 25 MG TABLET PO ×2 (08:53→21:01)
[2025-03-10] MEDS: FLUOXETINE HCL 20 MG CAPSULE 40 MG PO (08:53)
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
[2025-03-10] MEDS: SODIUM CHLORIDE 0.9 % (FLUSH) 10 ML SYRINGE 5 ML IVF ×2 (10:17→21:00)
[2025-03-10] MEDS: SENNOSIDES/DOCUSATE TABLET PO (10:48)
[2025-03-10] MEDS: ACETAMINOPHEN 325 MG TABLET 650 MG PO (10:49)
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
[2025-03-10 16:04] LABS: Creatine Kinase* 66 U/L (41-117)
[2025-03-10] MEDS: BRIMONIDINE TARTRATE 0.2% OPHTH 1 DROP EYE-BOTH (17:19)
--- NOTE | 2025-03-10 18:28 | PC.NURSE ---
Nursing Care Hours: [id number] Pt this shift calm and cooperative, alert and oriented to self. Knows she is in the hospital but states she is in [place]. C/o dizziness all shift, denies nausea. Pain reported to bilat knees, treated with PO meds per eMAR. Skin intact but dry and flaky. Little urine output this shift. Bolus infused. Bladder scan done prior to void see charting. Pt void x2 using BSC, continent. PRN senna given per pt request d/t feeling stool is stuck. BM charted. Doing 2 person pivot transfer with walker and gait belt. Pt needs reminders to continue to hold onto walker instead of reaching for other furniture items and reminders not to sit down until chair or bed is felt behind the legs. VSS. No insulin required per protocol. Pt eating 100% of all meals, choosing well balanced items, feeding independently. MRI completed without need for Ativan. ECHO and neuro consult completed. Pt showered this shift. Pt has runny nose but no cough. Pt son called for update, pt gave permission. Pt then requested to talk to son over the phone. Pt seen smiling and laughing while on phone. After update, pt requesting to call son frequently.
[2025-03-10] MEDS: METFORMIN ER 500 MG PO (18:50)
--- NOTE | 2025-03-10 20:12 | CRLHL7_ITS ---
For Patients: As a result of the Cures Act, medical imaging exams and procedure reports are released immediately into your electronic medical record. You may view this report before your referring provider. If you have questions, please contact your health care provider. Indication: Altered mental status. Technique: Multiplanar, multisequence MRI of the brain was performed without intravenous contrast. Comparison: CT head 03/09/2025. MR brain 05/15/2024. Findings: The corpus callosum, pituitary gland and clivus appear intact. Mild degenerative change visualized upper cervical spine. There is a 2 mm focus of restricted diffusion within the posterior right parietal lobe (series 5, image 43). There is corresponding T2 FLAIR hyperintensity. The ventricles are proportionate to the cerebral sulci. The 4th ventricle appears midline. The basal cisterns appear patent. No abnormal extra-axial fluid collection identified. Moderate parenchymal volume loss. Moderate scattered T2 FLAIR hyperintense foci within the subcortical and periventricular white matter, favored to represent chronic ischemic microvascular disease. Multiple chronic infarcts bilateral cerebellum. Small chronic lacunar infarcts bilateral basal ganglia. Chronic hemosiderin staining along the basal ganglia lacunar infarcts. There is no intracranial mass, abnormal mass-effect or midline shift identified. Thinning of the ocular lenses. Impression: 1. Punctate acute/subacute right posterior parietal infarct. 2. Chronic bilateral basal ganglia and cerebellar infarcts. 3. Moderate chronic ischemic microvascular disease. Dictated by David Fulton MD @ 03/10/2025 12:47:06 PM (Electronically Signed)
[2025-03-10] MEDS: SENNOSIDES 1 TAB TABLET PO (20:59)
[2025-03-10] MEDS: ATORVASTATIN CALCIUM 40 MG TABLET 80 MG PO (21:00)
[2025-03-10] MEDS: APIXABAN 5 MG TABLET PO (21:00)
[2025-03-10] MEDS: INSULIN ASPART 100 UNIT/ML SUBCUT (21:01)
[2025-03-11] VITALS (7 sets, daily range): BP systolic 119–152; BP diastolic 78–93; PULSE 74–87; RESP 14–20; TEMP 36–36.6; O2SAT 95–100
--- NOTE | 2025-03-11 04:21 | PC.NURSE ---
Pt rested well this night. Pleasant and cooperative. Had shower yesterday. A2 pivot to bedside commode. Reporting zero pain.
[2025-03-11 06:41] LABS: pH VBG 7.430 (7.32-7.43)
[2025-03-11 06:42] LABS: HCO3 VBG 27 mmol/L (21-28); PCO2 VBG 41 mmHG (40-50); PO2 VBG 71.2 mmHG (25-47)
[2025-03-11 06:43] LABS: Hematocrit* 34.7 % (33.0-51.0); Hemoglobin* 11.2 gm/dL (12.0-16.0); Immature Granulocytes Abs Auto 0.00 K/uL (0.00-0.30); Immature Granulocytes Pct Auto 0.0 %; Lymphocytes Absolute Auto 5.50 K/uL (0.90-2.90); Mean Corpuscular HGB Conc 32 gm/dL (32-36); Mean Corpuscular Hemoglobin 29 pg (26-34); Mean Corpuscular Volume 88 fL (80-100); RDW Coefficient of Variation % 14.0 % (11.5-15.5); Red Blood Count* 3.93 m/uL (4.00-5.20); White Blood Count* 9.05 K/uL (4.50-11.00)
[2025-03-11 06:53] LABS: Albumin* 3.2 g/dL (3.3-5.0); Chloride* 102 mmol/L (96-114); Slide Review Reflex No; Sodium* 138 mmol/L (135-149)
[2025-03-11 06:54] LABS: Potassium* 3.6 mmol/L (3.6-5.1)
[2025-03-11 06:55] LABS: Blood Urea Nitrogen* 23 mg/dL (7-30); Creatinine* 1.0 mg/dL (0.5-1.5); Est. Creatinine Clearance* 92.36; Estimated Glomerular Filt Rate 68 ml/min
[2025-03-11 06:56] LABS: Alanine Aminotransferase* 14 U/L (4-35); Alkaline Phosphatase* 58 U/L (40-150); Anion Gap 10 mEq/L (7-15); Aspartate Amino Transferase* 17 U/L (12-35); Bilirubin Direct* 0.2 mg/dL (0.0-0.5); Bilirubin Total* 0.7 mg/dL (0.1-1.5); Carbon Dioxide* 26 mmol/L (20-32); Total Protein* 6.1 g/dL (6.0-8.3)
[2025-03-11 06:57] LABS: Calcium* 8.5 mg/dL (8.4-10.6); Glucose* 111 mg/dL (60-115)
[2025-03-11] MEDS: BRIMONIDINE TARTRATE 0.2% OPHTH 1 DROP EYE-BOTH (08:17)
[2025-03-11] MEDS: FLUOXETINE HCL 20 MG CAPSULE 40 MG PO (08:17)
[2025-03-11] MEDS: METOPROLOL TARTRATE 25 MG TABLET PO ×2 (08:18→21:27)
[2025-03-11] MEDS: APIXABAN 5 MG TABLET PO ×2 (08:18→21:26)
[2025-03-11] MEDS: METFORMIN ER 500 MG PO ×2 (08:18→17:27)
[2025-03-11] MEDS: SODIUM CHLORIDE 0.9 % (FLUSH) 10 ML SYRINGE 5 ML IVF ×2 (08:18→21:27)
--- NOTE | 2025-03-11 09:40 | PC.SOCIAL ---
Addendum entered by WILY Martínez 03/11/25 14:33: Discharge planning: draw off worker received the following information from Narda Rodriguez in a secure email... The emergency guardian has been assigned to Cynthia Mchugh. She will be the point of contact regarding next steps. However, no steps can be completed until the document is signed by the special education resource room teacher. draw off worker is still waiting to receive the official court document from Narda that will show when the pt's court date is for guardianship. Social work to follow-up as needed. ? Addendum entered by WILY Martínez 03/11/25 11:23: Discharge planning: draw off worker met with pt and assisted her with trying to call her son, Arturo. He did not answer. Pt states that he is supposed to come to the hospital to visit today. Social work to follow-up as needed. Original Note: Discharge planning: The provider letter in support of guardianship was sent to Narda Rodriguez with [facility] at [facility] this morning via secure email. Social work to follow-up as needed.
[2025-03-11] MEDS: ACETAMINOPHEN 325 MG TABLET 650 MG PO (15:14)
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
[2025-03-11] MEDS: SULFA/TRIMETHOPRIM 800/160 1 TAB PO (17:27)
[2025-03-11] MEDS: INSULIN ASPART 100 UNIT/ML SUBCUT (17:27)
--- NOTE | 2025-03-11 19:36 | PC.NURSE ---
End of shift Note CCU4 Patient was very pleasant and cooperative throughout shift. VSS. Afebrile. Moves 1 assist with sarasteady to the toilet of chair. Toileting routine Q2H. I spoke to son Arturo (20 y/o) ([phone]) on the phone to give an update on patient. Patient's son stated that he would be here tomorrow at 0900 for rounds and ask MD more questions. Patient is able to use call light appropriately. Patient currently laying in bed. Call light within reach.
[2025-03-11] MEDS: ATORVASTATIN CALCIUM 40 MG TABLET 80 MG PO (21:26)
[2025-03-11] MEDS: SENNOSIDES 1 TAB TABLET PO (21:27)
[2025-03-11] MEDS: MELATONIN 3 MG TABLET PO (23:32)
[2025-03-12] VITALS (9 sets, daily range): BP systolic 126–145; BP diastolic 79–94; PULSE 69–90; RESP 14–18; TEMP 36.6–36.9; O2SAT 97–100
--- NOTE | 2025-03-12 06:52 | PC.NURSE ---
End of shift:?Pt pleasant,?alert?and oriented.?Pt slightly hypertensive, otherwise,?VSS.?Tele?reads NSR with 1st?degree AV. Pt denies pain. Moves via Guide, 2a, tolerated well. Pt continent during?shift. Pt?stated?some trouble sleeping, melatonin, and aromatherapy provided.?Pt in bed, appears to be resting, call light within reach.?
[2025-03-12] MEDS: METFORMIN ER 500 MG PO ×2 (08:25→18:17)
[2025-03-12] MEDS: METOPROLOL TARTRATE 25 MG TABLET PO ×2 (08:32→21:42)
[2025-03-12] MEDS: SULFA/TRIMETHOPRIM 800/160 1 TAB PO ×2 (08:32→21:44)
[2025-03-12] MEDS: BRIMONIDINE TARTRATE 0.2% OPHTH 1 DROP EYE-BOTH (08:33)
[2025-03-12] MEDS: APIXABAN 5 MG TABLET PO ×2 (08:33→21:44)
[2025-03-12] MEDS: FLUOXETINE HCL 20 MG CAPSULE 40 MG PO (08:33)
[2025-03-12] MEDS: SODIUM CHLORIDE 0.9 % (FLUSH) 10 ML SYRINGE 5 ML IVF ×2 (08:33→21:50)
--- NOTE | 2025-03-12 11:27 | P.IMPN_ITS ---
Assessment and Plan Assessment and plan (1) Acute CVA (cerebrovascular accident): Problem comment: -new acute/subacute post parietal SVA - likely miniscule if any clinical impact per tele neuro -patient was taking Eliquis daily instead of b.i.d., likely explains breakthrough small stroke -known PFO -known hx of multiple embolic strokes - from PFO -baseline left hemiparesis, speech slurring -echo is essentially baseline Status: Acute (2) PFO (patent foramen ovale): Problem comment: -She is a candidate for closure; has not followed up appropriately Status: Acute (3) Acute alteration in mental status: Problem comment: -seems to be improving. Status: Acute (4) Urinary tract infection: Problem comment: E coli that is resistant to current treatment. Initiating Bactrim. Rocephin --> Keflex --> Bactrim (last dose will be pm of 03/14) Status: Acute (5) Benzodiazepine misuse: Problem comment: +UDS without known prescription or administration Status: Acute (6) Neglected elder: Problem comment: unclear how much acute change in mobility there has been with newest CVA vs previous CVA; environment she was found in (after a well check) was very concerning. son Jones is the KNOT CUTTER but it is unclear what the relationship between the two is between them. -emergency guardianship granted 03/12/25 -TCU/SNF requested 03/12/25 - medically stable. Status: Acute (7) Severe malnutrition: Problem comment: 50 kg weight loss from October 2023 to October 2024. Uncertainty about current nutritional status. -pt states she just hasn't been hungry; states her daughter makes her food and it is brought to her Status: Acute (8) Discharge planning issues: Problem comment: [place] [facility] and emergency guardianship (granted) medically stable for TCU/SNF 03/12/25 Status: Acute (9) Essential hypertension: Problem comment: -MRI shows acute/subacute punctate CVA. -permissive HTN for next 24-48 hours. -restarted home meds for hypertension for 03/13 Status: Acute (10) Diabetes mellitus, type 2: Problem comment: <6.0 significant weight loss (query neglect; choice) monitor BS and adjust meds as indicated. -currently on metformin monotherapy -known complications: retinopathy, kidney Status: Acute (11) H/O completed stroke: Problem comment: October 2023 Status: Acute Subjective Date Seen: 03/12/25 Interval history: Daily Progress Note - #: 4 CC: Vulnerable adult, acute CVA, found in bed soaked in feces and urine 24 HOUR UPDATE: no significant changes; we are finding her care needs vacillate from standby to 2-assist depending on her motivation. I spoke with the son regarding more [facility] involvement; transitioning to TCU/SNF I am aware thru SW that the [facility] has approved emergency guardianship. Notable Labs, Micro, Rads, Interventions: 145/91. Pulse 69. Respirations 14. Afebrile. O2 sat 99% on room air. CBC is stable. Hemoglobin is settling out may be more like her baseline 11.2. She was likely hemoconcentrated previously. Platelet count and white blood cell count are normal. PH normal. Chemistries are normal. She is growing a resistant E coli in her urine. I will switch her to sulfa as her current treatment with cephalosporins are not sensitive. Benzos that are unexplained in her urine drug screen MRI 03/10/25 1. Punctate acute/subacute right posterior parietal infarct. 2. Chronic bilateral basal ganglia and cerebellar infarcts. 3. Moderate chronic ischemic microvascular disease. Loop recorder noted on her chest x-ray Echo updated 03/10/25 Normal LV size. Moderate increased wall thickness. Hyperdynamic global systolic function with an EF of 65-70%. There is a small pericardial effusion. This is new. No significant valvular disease. Objective: alert; can answer my questions with a few words; slurred speech noteable. Vitals: see above Lungs: Clear. Cardiac: S1S2. Neuro: can move 2-3/5 all extremities. Disposition/Potential discharge - considering emergency guardianship/SNF placement vs more help at home. Today I spent 50 minutes seeing the patient, reviewing Expanse and EPIC notes/diagnostics, discussing the care plan with our care time that includes social work, PT/OT, pharmacy, RT, residential and documenting my impressions and plan in the medical record. Exam Const: Vital Signs, click to edit/add: Vital Signs - 24 hr 03/11/25 15:00 03/11/25 15:00 03/11/25 15:56 Temperature 96.8 F L Pulse Rate 79 Pulse Rate [Pulse Oximeter] 79 81 Respiratory Rate 14 Blood Pressure [Le ft Arm] 142/93 H Blood Pressure [Ri ght Arm] Pulse Oximetry 99 Oxygen Delivery Me thod Room Air 03/11/25 23:00 03/11/25 23:31 03/12/25 02:06 Temperature 97.9 F Pulse Rate 90 Pulse Rate [Pulse Oximeter] 84 84 Respiratory Rate 16 16 Blood Pressure [Le ft Arm] Blood Pressure [Ri ght Arm] 119/82 Pulse Oximetry 98 Oxygen Delivery Me thod Room Air 03/12/25 03:22 03/12/25 08:27 03/12/25 08:27 Temperature 98.2 F 98.5 F Pulse Rate Pulse Rate [Pulse Oximeter] 84 79 79 Respiratory Rate 18 14 14 Blood Pressure [Le ft Arm] Blood Pressure [Ri ght Arm] 139/94 H 145/91 H Pulse Oximetry 98 97 Oxygen Delivery Me thod Room Air 03/12/25 09:14 Temperature Pulse Rate 69 Pulse Rate [Pulse Oximeter] Respiratory Rate Blood Pressure [Le ft Arm] Blood Pressure [Ri ght Arm] Pulse Oximetry Oxygen Delivery Me thod
--- NOTE | 2025-03-12 13:59 | PC.SOCIAL ---
Addendum entered by WILY Martínez 03/13/25 10:26: Discharge planning: Pt's emergency guardian information is Cynthia Romero (formally Rene), [facility] Social Work-Guardian [address] [place] [address] Office: [phone] Please note my new e-mail: [email or web address] After Hours Guardianship Crisis Line: [phone]. Addendum entered by WILY Martínez 03/12/25 16:19: Discharge planning: The pt has been accepted to [facility] for admission as soon as tomorrow(Sunday) the . combination worker has reached out to the pt's guardian about this acceptance, but has not heard back from her yet. combination worker did hear from the guardian earlier today that she was planning to visit the pt at the hospital tomorrow around 11am along with the pt's CADI manager of case, Doreen Ramirez. Social work to follow-up on this case in the morning. Addendum entered by WILY Martínez 03/12/25 14:21: Discharge planning: [id number]. Social work to follow-up as needed. Addendum entered by WILY Martínez 03/12/25 14:13: Discharge planning: combination worker did complete the pre-admission screening for the pt and it did trigger an OBRA Level 2 assessment that will need to be completed by [facility]. Social work to follow-up as needed. Original Note: Discharge planning: combination worker served the pt with her Emergency Guardianship paperwork from [facility] this morning. The pt took it well. The pt has a court hearing on SundayMarch 16 at 9am via Zoom for this. combination worker sent pt's referral to Laverne in Admissions at [facility] for placement assessment. The referral is being assessed. Pt's guardian listed the following facilities and the top three choices for placement; [facility] in [place], [facility] in [place] and [facility] in [place]. Laverne in Admissions at [facility] said that she was working on verifying pt's financial eligibility this afternoon. Social work to follow-up as needed.
--- NOTE | 2025-03-12 19:04 | PC.NURSE ---
End of Shift: Patient pleasant and cooperative, oriented to self and place. Patient is vitally stable, lung clear, BS WNL, IV SL and intact. Patient denies pain. Patient is tolerating regular diet and has been majority continent, slightly wet brief once. Natty steady is used for transfers. Patient does answer questions, just delayed to answer. Patient has been up in chair for meals. Large pills cut in half and given with apple sauce. Tele is NS with first degree HB. Blood sugars were 113, 123, 132.
[2025-03-12] MEDS: SENNOSIDES 1 TAB TABLET PO (21:43)
[2025-03-12] MEDS: ATORVASTATIN CALCIUM 40 MG TABLET 80 MG PO (21:46)
[2025-03-13 01:05] VITALS: BP 123/91; PULSE 82; RESP 18; TEMP 36.4; O2SAT 97
[2025-03-13] MEDS: MELATONIN 3 MG TABLET PO (01:07)
[2025-03-13 06:02] VITALS: BP 141/72; PULSE 77; RESP 6; TEMP 36.3; O2SAT 96
[2025-03-13 06:31] LABS: Hematocrit* 35.7 % (33.0-51.0); Hemoglobin* 11.5 gm/dL (12.0-16.0); Mean Corpuscular HGB Conc 32 gm/dL (32-36); Mean Corpuscular Hemoglobin 29 pg (26-34); Mean Corpuscular Volume 88 fL (80-100); Red Blood Count* 4.04 m/uL (4.00-5.20); Slide Review Reflex No; White Blood Count* 9.45 K/uL (4.50-11.00)
--- NOTE | 2025-03-13 06:32 | PC.NURSE ---
Shift note ([id number]): Patient pleasant,?alert?and?cooperative.?Transfers with?sera-stedy.?Given?Melatonin during night per pt request for?something to?help?her sleep.?Pt dry through?night?and reported she did not have to use the bathroom.?Denied pain.??
[2025-03-13 06:43] LABS: Chloride* 106 mmol/L (96-114); Potassium* 3.7 mmol/L (3.6-5.1); Sodium* 137 mmol/L (135-149)
[2025-03-13 06:46] LABS: Anion Gap 6 mEq/L (7-15); Blood Urea Nitrogen* 22 mg/dL (7-30); Calcium* 9.1 mg/dL (8.4-10.6); Carbon Dioxide* 25 mmol/L (20-32); Creatinine* 1.2 mg/dL (0.5-1.5); Est. Creatinine Clearance* 80.15; Estimated Glomerular Filt Rate 54 ml/min; Glucose* 96 mg/dL (60-115)
[2025-03-13 07:00] VITALS: BP 124/75; PULSE 77; RESP 18; TEMP 36.5; O2SAT 96
[2025-03-13] MEDS: SULFA/TRIMETHOPRIM 800/160 1 TAB PO (08:32)
[2025-03-13] MEDS: AMLODIPINE 5 MG TABLET PO (08:32)
[2025-03-13] MEDS: METFORMIN ER 500 MG PO (08:32)
[2025-03-13] MEDS: LOSARTAN POTASSIUM 50 MG TABLET PO (08:32)
[2025-03-13] MEDS: APIXABAN 5 MG TABLET PO (08:32)
[2025-03-13] MEDS: METOPROLOL TARTRATE 25 MG TABLET PO (08:33)
[2025-03-13] MEDS: SODIUM CHLORIDE 0.9 % (FLUSH) 10 ML SYRINGE 5 ML IVF (08:33)
[2025-03-13] MEDS: FLUOXETINE HCL 20 MG CAPSULE 40 MG PO (08:33)
[2025-03-13] MEDS: BRIMONIDINE TARTRATE 0.2% OPHTH 1 DROP EYE-BOTH (08:35)
--- NOTE | 2025-03-13 10:18 | PM.DS1 ---
DS: Providers Provider Date Seen: 03/13/25 Date of admission: 03/10/25 09:24 Primary care physician: Radha Avelar MD Admitting Clinician: Prasad Perez MD Consults: 03/09/25 21:55 Consult to Nutrition [CONS] Routine Comment: Reason for consult:: Nutritional Consult Consult to Occupational Therapy [CONS] Routine Comment: Reason(s) for OT Consult:: Evaluate and Treat Any Restrictions?:: No Restrictions Consult to Physical Therapy [CONS] Routine Comment: Reason(s) for PT Consult:: Evaluate and Treat Any Restrictions?:: No Restrictions Consult to Compressor Mechanic Bus [CONS] Routine Comment: Reason for Consult:: Discharge Planning Needs 03/11/25 Consult to Speech Therapy [CONS] Routine Comment: Reason(s) for Speech Consult:: Speech/Swallowing Eval Attending Physician on discharge: Nupur Arnold [facility], [facility] Date of Discharge: 03/13/25 DS: Diagnosis Discharge Diagnosis (1) Acute CVA (cerebrovascular accident): Status: Acute Problem details: -new acute/subacute post parietal SVA - likely miniscule if any clinical impact per tele neuro -patient was taking Eliquis daily instead of b.i.d., likely explains breakthrough small stroke -known PFO -known hx of multiple embolic strokes - from PFO -baseline left hemiparesis, speech slurring -echo is essentially baseline Discharged to [facility] for ongoing rehab (2) PFO (patent foramen ovale): Status: Acute Problem details: -She is a candidate for closure; has not followed up appropriately. (3) Acute alteration in mental status: Status: Acute Problem details: -seems to be improving Patient's status at discharge is minimal interaction. Little verbal interaction. Sleeps often. Unknown how much she is able to comprehend. OT attempted Cochrane, score of 7. Does not have capacity to make decisions for herself. (4) Urinary tract infection: Status: Acute Problem details: E coli that is resistant to current treatment, sensitive to Bactrim. Initiating Bactrim. Rocephin --> Keflex --> Bactrim (last dose will be pm of 03/14) Patient is discharged on Bactrim to complete on 03/14/2025. (5) Benzodiazepine misuse: Status: Acute Problem details: +UDS without known prescription or administration (6) Neglected elder: Status: Acute Problem details: unclear how much acute change in mobility there has been with newest CVA vs previous CVA; environment she was found in (after a well check) was very concerning. Son Jones is the ACADEMIC COORDINATOR but it is unclear what the relationship between the two is between them. -emergency guardianship granted 03/12/25, met with patient on 03/13/2025 prior to discharge -TCU/SNF requested 03/12/25 - medically stable (7) Severe malnutrition: Status: Acute Problem details: 50 kg weight loss from October 2023 to October 2024. Uncertainty about current nutritional status. -pt states she just hasn't been hungry; states her daughter makes her food and it is brought to her (8) Discharge planning issues: Status: Acute Problem details: [facility] and emergency guardianship (granted) medically stable for TCU/SNF 03/12/25 (9) Essential hypertension: Status: Acute Problem details: -MRI shows acute/subacute punctate CVA. -permissive HTN for next 24-48 hours. -restarted home meds for hypertension for 03/13 (10) Diabetes mellitus, type 2: Status: Acute Problem details: <6.0 significant weight loss (query neglect; choice) monitor BS and adjust meds as indicated. -currently on metformin monotherapy -known complications: retinopathy, kidney (11) H/O completed stroke: Status: Acute Problem details: October 2023 DS: Summary Hospital Course Hospital Course: Course of care and details as noted above. As above, following acute CVA, patient is discharged to [facility] for ongoing rehab. [facility] and legal guardianship granted. Status at Discharge Cognitive/behavioral status at discharge: Cochrane 7 Overall status at discharge: patient is not back to baseline Time Spent with Patient Time attestation: Total time spent providing and/or coordinating discharge services: Exam Narrative: Exam Narrative: PHYSICAL EXAM General: Sitting up in chair, fell asleep while eating breakfast, food on her clothing Cardiovascular: RRR Pulmonary: No dyspnea Neurological: Awakens, no verbal interaction, minimal eye contact Skin: Warm, dry. Const: Vital Signs, click to edit/add: Vital Signs - 24 hr 03/12/25 11:39 03/12/25 15:11 03/12/25 15:11 Temperature 98 F 98.3 F Pulse Rate Pulse Rate [Pulse Oximeter] 80 80 80 Respiratory Rate 14 14 14 Blood Pressure [Ri ght Arm] 126/88 131/79 Pulse Oximetry 98 98 Oxygen Delivery Me thod Room Air Room Air 03/12/25 15:33 03/12/25 21:34 03/12/25 23:00 Temperature 97.9 F Pulse Rate 78 83 Pulse Rate [Pulse Oximeter] 82 Respiratory Rate 17 Blood Pressure [Ri ght Arm] 141/82 H Pulse Oximetry 100 Oxygen Delivery Me thod Room Air 03/13/25 01:05 03/13/25 06:02 03/13/25 07:00 Temperature 97.5 F L 97.3 F L 97.7 F Pulse Rate Pulse Rate [Pulse Oximeter] 82 77 77 Respiratory Rate 18 6 L 18 Blood Pressure [Ri ght Arm] 123/91 H 141/72 H 124/75 Pulse Oximetry 97 96 96 Oxygen Delivery Me thod Room Air Room Air Room Air DS: Data Data Completed and Pending Labs on day of discharge: Labs from last 24 hours 03/13/25 05:53 WBC 9.45 RBC 4.04 Hgb 11.5 L Hct 35.7 MCV 88 MCH 29 MCHC 32 Plt Count 292 Sodium 137 Potassium 3.7 Chloride 106 Carbon Dioxide 25 Anion Gap 6 L BUN 22 Creatinine 1.2 Estimated Creat Clear 80.15 Estimated GFR 54 Glucose [address] scan - head: Attestation: I have reviewed the pertinent imaging results. Radiologist's impression: CSF spaces: Within normal limits for age. Brain parenchyma: No intracranial bleed or mass effect. Old lacunar infarcts at the bilateral basal ganglia with old bilateral cerebellar infarcts. Skull base and calvarium: The visualized paranasal sinuses and mastoid air cells demonstrate no acute or significant findings. The visualized orbits are grossly unremarkable. No skull fractures. IMPRESSION: 1. No intracranial bleed or mass effect. 2. Old bilateral basal ganglia lacunar infarcts and old bilateral cerebellar infarcts. MR Brain: Attestation: I have reviewed the pertinent imaging results. Radiologist's impression: The corpus callosum, pituitary gland and clivus appear intact. Mild degenerative change visualized upper cervical spine. There is a 2 mm focus of restricted diffusion within the posterior right parietal lobe (series 5, image 43). There is corresponding T2 FLAIR hyperintensity. The ventricles are proportionate to the cerebral sulci. The 4th ventricle appears midline. The basal cisterns appear patent. No abnormal extra-axial fluid collection identified. Moderate parenchymal volume loss. Moderate scattered T2 FLAIR hyperintense foci within the subcortical and periventricular white matter, favored to represent chronic ischemic microvascular disease. Multiple chronic infarcts bilateral cerebellum. Small chronic lacunar infarcts bilateral basal ganglia. Chronic hemosiderin staining along the basal ganglia lacunar infarcts. There is no intracranial mass, abnormal mass-effect or midline shift identified. Thinning of the ocular lenses. Impression: 1. Punctate acute/subacute right posterior parietal infarct. 2. Chronic bilateral basal ganglia and cerebellar infarcts. 3. Moderate chronic ischemic microvascular disease. Chest x-ray: Attestation: I have reviewed the pertinent imaging results. Radiologist's impression: Cardiovascular and mediastinum: Normal heart size with loop recorder and mild aortic tortuosity. Lungs and pleural space: Low lung volumes without pleural effusion or pneumothorax. No focal consolidation. Bones and soft tissues: No acute findings. Discharge Plan Discharge Disposition: [facility] Discharge Location: [facility] Date of Admission: 03/10/25 09:24 Attending Provider on Discharge: Nupur Arnold Primary Care Provider: Radha Avelar I Condition: Stable Anticipated Discharge Date/Time: 03/13/25 10:02 Discharge Medications: New sulfamethoxazole-trimethoprim 800-160 mg Tablet 1 tab PO BID Qty: 4 0RF Continued fluoxetine 40 mg capsule 40 mg PO DAILY atorvastatin 80 mg tablet 80 mg PO HS sennosides [senna] 8.6 mg tablet 8.6 mg PO HS amlodipine 5 mg tablet 5 mg PO DAILY metoprolol tartrate 25 mg tablet 25 mg PO BID Eliquis 5 mg tablet 5 mg PO BID brimonidine 0.2 % drops 1 drp ophthalmic (eye) DAILY losartan 50 mg tablet 50 mg PO DAILY hydrochlorothiazide 25 mg tablet 25 mg PO DAILY metformin 500 mg tablet extended release 24 hr 500 mg PO BID Discharge Orders: Discharge Order (Routine); Ordered 03/13/25 Ordered By: Nupur Arnold Additional Instructions: Complete antibiotic - Bactrim as prescribed. Activity Level: Other Activity Detail: per PT/OT Discharge Diet: Diabetic Follow Up Appointments: Radha Avelar MD [Primary Care Provider, Obstetrics] Forms: [facility] Instructions Admit to: SNF Discharge Potential: Fair Length of Stay: <30 days Can use facility standing orders?: Yes Code Status: DNR/DNI Rehab Potential: Fair Therapy: Physical Therapy and Occupational Therapy Therapy Orders: Evaluate and Treat Oxygen: No Urinary Catheter: No Orders are good >30 days: No Signature: KASSY Moss, PAOlgaC
--- NOTE | 2025-03-13 12:29 | PC.SOCIAL ---
Discharge planning: Confirmed with [facility] Vulnerable adult worker, Narda, , that [facility] has been in communication with the son regarding plans for discharge today and guardianship. Narda confirmed the guardian will be at the hospital by 11:00 today to meet with pt and can speak to family at this time if they are present. Narda confirmed the guardian, Cynthia Romero [phone], is the only person who is able to make decisions on pt's care and discharge at this time. Family members who were previously listed as contacts for this patient and the patient, herself, are no longer able to make decisions for this patient. Secure emailed discharge information to [facility] prior to discharge.
== END 2025-03-13 11:55 | DRG 64 ==
LOC: ED 20:42 → MEDSURG 21:10
PROVIDERS: Family Medicine; Admitting Provider Family Medicine; Emergency Provider Family Medicine; PCP Family Medicine; Visit Provider Family Medicine
DX: I63.9 Cerebral infarction, unspecified (principal); E43 Unspecified severe protein-calorie malnutrition; N39.0 Urinary tract infection, site not specified; Q21.12 Patent foramen ovale; T74.01XA Adult neglect or abandonment, confirmed, initial encounter; Z68.41 Body mass index [BMI] 40.0-44.9, adult; I69.354 Hemiplegia and hemiparesis following cerebral infarction affecting left non-dominant side; B96.20 Unspecified Escherichia coli [E. coli] as the cause of diseases classified elsewhere; F41.9 Anxiety disorder, unspecified; E11.319 Type 2 diabetes mellitus with unspecified diabetic retinopathy without macular edema; I10 Essential (primary) hypertension; T45.516A Underdosing of anticoagulants, initial encounter; Z91.148 Patient's other noncompliance with medication regimen for other reason; E78.5 Hyperlipidemia, unspecified; Z66 Do not resuscitate; Z87.891 Personal history of nicotine dependence; I69.328 Other speech and language deficits following cerebral infarction
CPT/HCPCS: 36415; 51798; 70450; 70551; 71045; 80048; 80053; 80069; 80076; 80306; 81001; 82077; 82550; 82803; 82962; 83036; 83605; 83735; 83880; 84443; 84484; 85025; 85027; 86140; 87086; 87631; 92610; 93005; 93306; 94761; 97110; 97161; 97166; 97530; 97535; 99285; A9270; G0378; J0696; J7030

== ENCOUNTER 2025-03-13 12:05 | Outpatient (CLI) | payer MEDICAID, SELFPAY | END 2025-03-13 12:06 | disposition home or self-care (01) | LOC: AMB 03-16 18:12 | PROVIDERS: PCP Family Medicine; Visit Provider Internal Medicine | DX: I63.9 Cerebral infarction, unspecified (principal) | CPT/HCPCS: A0425; A0428 ==